=== PATIENT | male | born 1955 | race Caucasian/White ===

== ENCOUNTER 2023-08-02 12:13 | Inpatient (IN) | payer MEDICARE, BC ==
--- NOTE | 2023-08-02 12:38 | ED ---
General Adult HPI - General Source: patient, RN notes reviewed Mode of arrival: ambulatory Limitations: no limitations <Michael Howard - Last Filed: 08/02/23 12:36> - General Source: patient, RN notes reviewed Mode of arrival: ambulatory Limitations: no limitations <Jenaro Moralez - Last Filed: 08/02/23 16:58> - General Chief complaint: Extremity Injury, Lower Stated complaint: R Foot Discolored-Blue Time Seen by Provider: 08/02/23 12:36 - History of Present Illness Initial comments: -year-old male presents emergency department chief complaint of right foot pain, discoloration. He states that he notices with walking short distances he gets extreme foot pain and discoloration. He states it is improved at this time because has been sitting he notices with walking the symptoms worse he is a smoker denies any prior clots or known vascular issues (Michael Howard) Patient is a pleasant 67-year-old male presenting to the emergency Department with right leg pain. Onset was a couple days ago. Patient has symptoms with standing up or walking, resolved with lying down. Patient has noticed the end of his foot turning a little bit blue, more so medially. There is discomfort that radiates up the leg. No history of similar symptoms previously. Patient does have history of sciatica however that radiated the other way and started more in the buttocks and hip. Patient did have surgery for that years ago. Patient is a smoker. Patient does want to quit. Patient is not on anticoagulation. (Jenaro Moralez) - Related Data Allergies Allergy/AdvReac Type Severity Reaction Status Date / Time No Known Allergies Allergy Verified 08/02/23 12:19 Review of Systems ROS Other: All systems not noted in ROS Statement are negative. <Michael Howard - Last Filed: 08/02/23 12:36> ROS Other: All systems not noted in ROS Statement are negative. Constitutional: Denies: fever Eyes: Denies: eye pain ENT: Denies: ear pain Respiratory: Denies: cough, dyspnea Cardiovascular: Denies: chest pain Gastrointestinal: Denies: abdominal pain Skin: Reports: as per HPI <Jenaro Moralez - Last Filed: 08/02/23 16:58> ROS Statement: Those systems with pertinent positive or pertinent negative responses have been documented in the HPI. Past Medical History Past Medical History: No Reported History History of Any Multi-Drug Resistant Organisms: None Reported Additional Past Surgical History / Comment(s): Back Past Psychological History: No Psychological Hx Reported Smoking Status: Current every day smoker Past Alcohol Use History: None Reported Past Drug Use History: Marijuana <Michael Howard - Last Filed: 08/02/23 12:36> General Exam Limitations: no limitations <Michael Howard - Last Filed: 08/02/23 12:36> Limitations: no limitations General appearance: alert Head exam: Present: normocephalic Eye exam: Present: normal appearance Neck exam: Present: normal inspection Respiratory exam: Present: normal lung sounds bilaterally Cardiovascular Exam: Present: regular rate, normal rhythm Expanded Peripheral pulses: 1+: Posterior Tibialis (R), Dorsalis Pedis (R), 2+: Femoral (R), Femoral (L), Posterior Tibialis (L), Dorsalis Pedis (L) GI/Abdominal exam: Present: soft. Absent: tenderness, pulsatile mass Extremities exam: Present: other (Right first through third toe with minimal fullness and minimal light blue discoloration.) Neurological exam: Present: alert Psychiatric exam: Present: normal affect, normal mood Skin exam: Present: other (Minimal blue discoloration right first through third toes) <Jenaro Moralez - Last Filed: 08/02/23 16:58> - General Exam Comments Initial Comments: Visual Physical Exam Vital signs reviewed General: Well-appearing, nontoxic, no acute distress. Head: Normocephalic, atraumatic Eyes: PERRLA, EOMI ENT: Airway patent Chest: Nonlabored breathing Skin: No visual rash, normal skin tone Neuro: Alert and oriented 3 Musculoskeletal: No gross abnormalities (Michael Howard) Course Vital Signs 08/02/23 08/02/23 12:16 16:29 Temperature 98 F Pulse Rate 104 H 82 Respiratory 20 18 Rate Blood Pressure 210/111 207/82 O2 Sat by Pulse 100 100 Oximetry EKG Findings - EKG Results: EKG: interpreted by ERMOctaviano, sinus rhythm, normal axis, normal QRS, normal ST/T <Jenaro Moralez Last Filed: 08/02/23 16:58> Medical Decision Making <Michael Howard - Last Filed: 08/02/23 12:36> - Lab Data Result diagrams: 08/02/23 12:36 08/02/23 12:36 <Jenaro Moralez - Last Filed: 08/02/23 16:58> - Medical Decision Making I completed the quick note portion of this chart signed Michael Howard PA-C (Michael Howard) Was pt. sent in by a medical professional or institution (, PA, [employer], urgent care, hospital, or jail...) When possible be specific @ -No Did you speak to anyone other than the patient for history (EMS, parent, family, police, friend...)? What history was obtained from this source @ -No Did you review nursing and triage notes (agree or disagree)? Why? @ -I reviewed and agree with nursing and triage notes Were old charts reviewed (outside hosp., previous admission, EMS record, old EKG, old radiological studies, urgent care reports/EKG's, jail records)? Report findings @ -No old charts were reviewed Differential Diagnosis (chest pain, altered mental status, abdominal pain women, abdominal pain men, vaginal bleeding, weakness, fever, dyspnea, syncope, headache, dizziness, GI bleed, back pain, seizure, CVA, palpatations, mental health, musculoskeletal)? @ -Differential Musculoskeletal Muscular strain, contusion, ligament sprain, fracture, arthritis, septic arthritis, bursitis, cellulitis, muscle spasm, nerve compression, DVT, arterial occlusion, herpes zoster, electrolyte abnormality, tumor.... This is not meant to be in all inclusive list EKG interpreted by me (3pts min.). @ -As above X-rays interpreted by me (1pt min.). @ -None done CT interpreted by me (1pt min.). @ -CT angios right leg does show some occlusive disease U/S interpreted by me (1pt. min.). @ -None done What testing was considered but not performed or refused? (CT, X-rays, U/S, labs)? Why? @ -None What meds were considered but not given or refused? Why? @ -None Did you discuss the management of the patient with other professionals (professionals i.e. , CHRISTINE, [employer], lab, RT, psych nurse, social services designee, filter cleaner, teacher, media liaison officer, porter sample case)? Give summary @ -Case was discussed with vascular Dr. Barrera who will come evaluate patient and does request heparin and blood pressure control Was smoking cessation discussed for >3mins.? @ -No Was critical care preformed (if so, how long)? @ -33 minutes of critical care time Were there social determinants of health that impacted care today? How? (Homelessness, low income, unemployed, alcoholism, drug addiction, transportation, low edu. Level, literacy, decrease access to med. care, detention, rehab)? @ -No Was there de-escalation of care discussed even if they declined (Discuss DNR or withdrawal of care, Hospice)? DNR status @ -No What co-morbidities impacted this encounter? (DM, HTN, Smoking, COPD, CAD, Cancer, CVA, ARF, Chemo, Hep., AIDS, mental health diagnosis, sleep apnea, morbid obesity)? @ -None Was patient admitted / discharged? Hospital course, mention meds given and route, prescriptions, significant lab abnormalities, going to OR and other pertinent info. @ -Patient reevaluated and updated. Patient will be admitted. Admission orders written. Heparin started. Undiagnosed new problem with uncertain prognosis? @ -No Drug Therapy requiring intensive monitoring for toxicity (Heparin, Nitro, I nsulin, Cardizem)? @ -Patient will need monitoring for heparin drip. Were any procedures done? @ -No Diagnosis/symptom? @ -Arterial occlusion Acute, or Chronic, or Acute on Chronic? @ -Acute Uncomplicated (without systemic symptoms) or Complicated (systemic symptoms)? @ -default Side effects of treatment? @ -No Exacerbation, Progression, or Severe Exacerbation? @ -No Poses a threat to life or bodily function? How? (Chest pain, USA, VT, pneumonia, PE, COPD, DKA, ARF, appy, cholecystitis, CVA, Diverticulitis, Homicidal, Suicidal, threat to staff... and all critical care pts) @ -No Case was also discussed with Dr. 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 Pankaj discussed with Practitioner Melani for admission covering with Dr. salazar. They will admit. (Jenaro Moralez) - Lab Data Lab Results 08/02/23 08/02/23 08/02/23 Range/Units 12:36 12:36 12:36 WBC 8.7 (3.8-10.6) k/uL RBC 4.61 (4.30-5.90) m/uL Hgb 14.8 (13.0-17.5) gm/dL Hct 44.6 (39.0-53.0) % MCV 96.9 (80.0-100.0) fL MCH 32.2 (25.0-35.0) pg MCHC 33.2 (31.0-37.0) g/dL RDW 12.9 (11.5-15.5) % Plt Count 374 (150-450) k/uL MPV 8.0 Neutrophils % 75 % Lymphocytes % 18 % Monocytes % 4 % Eosinophils % 2 % Basophils % 0 % Neutrophils # 6.5 (1.3-7.7) k/uL Lymphocytes # 1.6 (1.0-4.8) k/uL Monocytes # 0.3 (0-1.0) k/uL Eosinophils # 0.2 (0-0.7) k/uL Basophils # 0.0 (0-0.2) k/uL PT 9.5 L (10.0-12.5) sec INR 0.8 (<1.2) APTT 22.4 (22.0-30.0) sec Sodium 141 (137-145) mmol/L Potassium 5.6 H (3.5-5.1) mmol/L Chloride 107 (98-107) mmol/L Carbon Dioxide 27 (22-30) mmol/L Anion Gap 7 mmol/L BUN 8 L (9-20) mg/dL Creatinine 1.04 (0.66-1.25) mg/dL Est GFR (CKD-EPI)AfAm 87 (>60 ml/min/1.73 sqM) Est GFR (CKD-EPI)NonAf 75 (>60 ml/min/1.73 sqM) Glucose 98 (74-99) mg/dL Plasma Lactic Acid Noah (0.7-2.0) mmol/L Calcium 9.9 (8.4-10.2) mg/dL Total Bilirubin 0.5 (0.2-1.3) mg/dL AST 19 (17-59) U/L ALT 13 (4-49) U/L Alkaline Phosphatase 125 (38-126) U/L Total Protein 6.9 (6.3-8.2) g/dL Albumin 4.2 (3.5-5.0) g/dL 01/30/24 Range/Units 12:36 WBC (3.8-10.6) k/uL RBC (4.30-5.90) m/uL Hgb (13.0-17.5) gm/dL Hct (39.0-53.0) % MCV (80.0-100.0) fL MCH (25.0-35.0) pg MCHC (31.0-37.0) g/dL RDW (11.5-15.5) % Plt Count (150-450) k/uL MPV Neutrophils % % Lymphocytes % % Monocytes % % Eosinophils % % Basophils % % Neutrophils # (1.3-7.7) k/uL Lymphocytes # (1.0-4.8) k/uL Monocytes # (0-1.0) k/uL Eosinophils # (0-0.7) k/uL Basophils # (0-0.2) k/uL PT (10.0-12.5) sec INR (<1.2) APTT (22.0-30.0) sec Sodium (137-145) mmol/L Potassium (3.5-5.1) mmol/L Chloride (98-107) mmol/L Carbon Dioxide (22-30) mmol/L Anion Gap mmol/L BUN (9-20) mg/dL Creatinine (0.66-1.25) mg/dL Est GFR (CKD-EPI)AfAm (>60 ml/min/1.73 sqM) Est GFR (CKD-EPI)NonAf (>60 ml/min/1.73 sqM) Glucose (74-99) mg/dL Plasma Lactic Acid Noah 1.2 (0.7-2.0) mmol/L Calcium (8.4-10.2) mg/dL Total Bilirubin (0.2-1.3) mg/dL AST (17-59) U/L ALT (4-49) U/L Alkaline Phosphatase (38-126) U/L Total Protein (6.3-8.2) g/dL Albumin (3.5-5.0) g/dL Disposition <Michael Howard - Last Filed: 08/02/23 12:36> Is patient prescribed a controlled substance at d/c from ED?: No Time of Disposition: 16:45 <Moralez,Jenaro - Last Filed: 08/02/23 16:58> Clinical Impression: Arterial occlusion Disposition: ADMITTED IP TO THIS HOSP Referrals: Elie Llanes MD [Primary Care Provider] - 1-2 days
[2023-08-02 12:56] LABS: Basophils % (A) 0 %; Eosinophils # (A) 0.2 k/uL (0-0.7); Eosinophils % (A) 2 %; HCT 44.6 % (39.0-53.0); HGB 14.8 gm/dL (13.0-17.5); Lymphocytes # (A) 1.6 k/uL (1.0-4.8); Lymphocytes % (A) 18 %; MCH 32.2 pg (25.0-35.0); MCHC 33.2 g/dL (31.0-37.0); MCV 96.9 fL (80.0-100.0); Monocytes # (A) 0.3 k/uL (0-1.0); Monocytes % (A) 4 %; Neutrophils # (A) 6.5 k/uL (1.3-7.7); Neutrophils % (A) 75 %; Platelet Count 374 k/uL (150-450); RBC 4.61 m/uL (4.30-5.90); RDW 12.9 % (11.5-15.5); WBC 8.7 k/uL (3.8-10.6)
[2023-08-02 13:08] LABS: ALT 13 U/L (4-49); AST 19 U/L (17-59); African American GFR (CKD) 87 (>60 ml/min/1.73 sqM); Albumin 4.2 g/dL (3.5-5.0); Alkaline Phosphatase 125 U/L (38-126); Anion Gap 7 mmol/L; Blood Urea Nitrogen 8 mg/dL (9-20); Calcium 9.9 mg/dL (8.4-10.2); Carbon Dioxide 27 mmol/L (22-30); Chloride 107 mmol/L (98-107); Glucose 98 mg/dL (74-99); Non-African American GFR(CKD) 75 (>60 ml/min/1.73 sqM); Potassium 5.6 mmol/L (3.5-5.1); Sodium 141 mmol/L (137-145); Total Bilirubin 0.5 mg/dL (0.2-1.3); Total Protein 6.9 g/dL (6.3-8.2)
[2023-08-02 13:30] LABS: INR 0.8 (<1.2); Partial Thromboplastin Time 22.4 sec (22.0-30.0); Prothrombin Time 9.5 sec (10.0-12.5)
[2023-08-02] MEDS ORDERED: RX INFO: IV CONTRAST WAS GIVEN 1 EACH MISC MISCELLANE PRN (14:57)
--- NOTE | 2023-08-02 16:09 | CT ---
EXAMINATION TYPE: CT angio lower extremity RT DATE OF EXAM: 08/02/2023 COMPARISON: None HISTORY: Foot discoloration, decreased pulses CT DLP: 1427.6 mGycm Automated exposure control for dose reduction was used. Contrast: 100 mL Isovue-370 Technique: Axial images 2 mm thick sections. Reconstructed images were performed on a separate comput er by the technologist are reviewed. FINDINGS: Right lower extremity arterial system: The external iliac artery is patent. Common femoral artery is patent. Vascular calcifications in the distal common femoral artery. Profunda femoris is patent. The superficial femoral artery is occluded at its origin. Profunda femoris vessels are identified to the mid thigh region. Note is made of vascular calcification within the superficial femoral artery. There appears to be reconstitution of the popliteal artery within its proximal portion. Trifurcation vessels are patent. Vascular calcifications within these vessels. Peroneal artery is very narrowed. A nterior and posterior tibial arteries to the mid calf region are patent. Posterior tibial artery appe ars occluded in its distal portion. Anterior tibial artery is patent to the level of the ankle. Peron eal artery extends to nearly the ankle. IMPRESSION: 1. OCCLUSION OF THE LEFT RIGHT SUPERFICIAL FEMORAL ARTERY AT ITS ORIGIN. 2. RECONSTITUTION OF THE POPLITEAL ARTERY. SMALL CALIBER VESSELS EXTENDING TO THE TRIFURCATION ARTERI ES. 3. ANTERIOR TIBIAL ARTERY APPEARS TO BE PATENT AT THE LEVEL OF THE ANKLE. POSTERIOR TIBIAL AND PERONE AL ARTERIES ARE NARROWED AND MAY OCCLUDE ABOVE THE LEVEL OF THE ANKLE.
[2023-08-02] MEDS ORDERED: HEPARIN SODIUM 1,000 UN/ML (10ML VL) IV PRN (16:39)
[2023-08-02] MEDS ORDERED: NALOXONE 0.4 MG/ML 1 ML VIAL IV PRN (16:45)
[2023-08-02] MEDS: hydrALAZINE HCL 20 MG/ML 1 ML VIAL IVP STA (17:13)
[2023-08-02] MEDS: HEPARIN SOD,PORK IN 0.45% NACL 25,000 UNIT in 0.45% NACL 1 250ML.BAG IV SCH (17:16)
[2023-08-02] MEDS: HEPARIN SODIUM 1,000 UN/ML (10ML VL) IV ONE (17:16)
[2023-08-02] MEDS: PANTOPRAZOLE 40 MG/10 ML VIAL IV SCH (17:35)
[2023-08-02] MEDS: SODIUM CHLORIDE 0.9% 1,000 ML IV SCH (17:35)
[2023-08-02 17:44] LABS: INR 0.9 (<1.2); Prothrombin Time 9.7 sec (10.0-12.5)
--- NOTE | 2023-08-02 21:36 | P.GSCN ---
History of Present Illness Consult date: 08/02/23 Reason for Consult: lower extremity ischemia History of present illness: 67 year old gentleman with history of back surgery, chronic parasthesia, numbness in his feet presented to the ER for worsening discomfort and discoloration of the feet after walking. He states having discomfort in his feet with paleness and sometimes bluish discoloration after walking significant distance or at a brisk pace. He denies any rest pain, fevers, chills, chest pain or shortness of breath. Review of Systems All systems: negative (what is mentioned in the PMH or HPI) Past Medical History Past Medical History: No Reported History History of Any Multi-Drug Resistant Organisms: None Reported Additional Past Surgical History / Comment(s): Back Past Psychological History: No Psychological Hx Reported Smoking Status: Current every day smoker Past Alcohol Use History: None Reported Past Drug Use History: Marijuana Medications and Allergies Home Medications Medication Instructions Recorded Confirmed Type No Known Home Medications 08/02/23 08/02/23 History Allergies Allergy/AdvReac Type Severity Reaction Status Date / Time No Known Allergies Allergy Verified 08/02/23 17:33 Surgical - Exam Vital Signs Temp Pulse Resp BP Pulse Ox 98 F 104 H 20 210/111 100 08/02/23 12:16 08/02/23 12:16 08/02/23 12:16 08/02/23 12:16 08/02/23 12:16 - General well developed, well nourished, no distress - Eyes PERRL, normal ocular movement - ENT normal pinna, normal nares - Neck no masses - Respiratory normal expansion, normal respiratory effort - Cardiovascular Rhythm: regular - Abdomen Abdomen: soft, non tender - Integumentary no rash, no growths - Neurologic normal coordination - Musculoskeletal normal gait, normal posture - Psychiatric oriented to time, oriented to person, oriented to place, speech is normal Monophasic DP/PT on the right foot is pale, poor capillary refill Results - Labs 08/02/23 12:36 08/02/23 12:36 Abnormal Lab Results - Last 24 Hours (Table) 08/02/23 08/02/23 08/02/23 Range/Units 12:36 12:36 16:56 PT 9.5 L 9.7 L (10.0-12.5) sec Potassium 5.6 H (3.5-5.1) mmol/L BUN 8 L (9-20) mg/dL Diabetes panel 08/02/23 Range/Units 12:36 Sodium 141 (137-145) mmol/L Potassium 5.6 H (3.5-5.1) mmol/L Chloride 107 (98-107) mmol/L Carbon Dioxide 27 (22-30) mmol/L BUN 8 L (9-20) mg/dL Creatinine 1.04 (0.66-1.25) mg/dL Glucose 98 (74-99) mg/dL Calcium 9.9 (8.4-10.2) mg/dL AST 19 (17-59) U/L ALT 13 (4-49) U/L Alkaline Phosphatase 125 (38-126) U/L Total Protein 6.9 (6.3-8.2) g/dL Albumin 4.2 (3.5-5.0) g/dL Calcium panel 08/02/23 Range/Units 12:36 Calcium 9.9 (8.4-10.2) mg/dL Albumin 4.2 (3.5-5.0) g/dL Pituitary panel 08/02/23 Range/Units 12:36 Sodium 141 (137-145) mmol/L Potassium 5.6 H (3.5-5.1) mmol/L Chloride 107 (98-107) mmol/L Carbon Dioxide 27 (22-30) mmol/L BUN 8 L (9-20) mg/dL Creatinine 1.04 (0.66-1.25) mg/dL Glucose 98 (74-99) mg/dL Calcium 9.9 (8.4-10.2) mg/dL Adrenal panel 08/02/23 Range/Units 12:36 Sodium 141 (137-145) mmol/L Potassium 5.6 H (3.5-5.1) mmol/L Chloride 107 (98-107) mmol/L Carbon Dioxide 27 (22-30) mmol/L BUN 8 L (9-20) mg/dL Creatinine 1.04 (0.66-1.25) mg/dL Glucose 98 (74-99) mg/dL Calcium 9.9 (8.4-10.2) mg/dL Total Bilirubin 0.5 (0.2-1.3) mg/dL AST 19 (17-59) U/L ALT 13 (4-49) U/L Alkaline Phosphatase 125 (38-126) U/L Total Protein 6.9 (6.3-8.2) g/dL Albumin 4.2 (3.5-5.0) g/dL - Imaging Additional studies: CTA of the right foot demonstrates occlusion of the right SFA with recon above knee popliteal artery and distal arterial tibial occlusive disease Assessment and Plan Assessment: Acute on Chronic right lower extremity ischemia Right superficial femoral artery occlusion HTN Plan: Reviewed CTA which demonstrates occlusion of the SFA. Agree with heparin drip for now and admission for further monitoring. Discussed need for angiogram with the patient either as outpatient or within the next couple of days. Recommend aspirin, plavix and statin. Thank you for the consultation.
[2023-08-03 10:01] LABS: Basophils % (A) 0 %; Eosinophils # (A) 0.1 k/uL (0-0.7); Eosinophils % (A) 1 %; HCT 43.8 % (39.0-53.0); HGB 14.5 gm/dL (13.0-17.5); Lymphocytes # (A) 2.1 k/uL (1.0-4.8); Lymphocytes % (A) 22 %; MCH 32.5 pg (25.0-35.0); MCHC 33.1 g/dL (31.0-37.0); MCV 98.2 fL (80.0-100.0); Mean Platelet Volume 8.8; Monocytes # (A) 0.4 k/uL (0-1.0); Monocytes % (A) 4 %; Neutrophils # (A) 6.8 k/uL (1.3-7.7); Neutrophils % (A) 71 %; Platelet Count 403 k/uL (150-450); RBC 4.46 m/uL (4.30-5.90); RDW 13.3 % (11.5-15.5); WBC 9.7 k/uL (3.8-10.6)
--- NOTE | 2023-08-03 12:42 | P.PN ---
Subjective Progress Note Date: 08/03/23 Principal diagnosis: Right femoral artery occlusion Patient is seen and examined lying in bed in the emergency department. He has IV heparin infusion running. States pain is improved in the right lower extremity. He states he has only been up and ambulated to the bathroom which is only 1 door down which she states has been nonpainful. Right lower extremity warm to the touch. He denies any other acute changes through the night. Objective - Vital Signs Vital signs: Vital Signs Temp 98 F 08/02/23 12:16 Pulse 66 08/03/23 09:25 Resp 18 08/03/23 09:25 BP 161/80 08/03/23 09:25 Pulse Ox 97 08/03/23 09:25 FiO2 Intake & Output 08/02/23 08/03/23 08/03/23 18:59 06:59 18:59 Intake Total 81.238 Balance 81.238 Weight 68.039 kg Intake: Intake, IV Titration 81.238 Amount Heparin Sod,Pork in 0.45% 81.238 NaCl 25,000 unit In 0.45 % NaCl 1 250ml.bag @ 18 UNITS/KG/HR 12.247 mls/hr IV .[id number] [facility] Rx#: [id number] - Exam General appearance: The patient is alert, oriented, appears in no acute distress. HET: Head is normocephalic and atraumatic. Pupils are equal and reactive. Neck: Supple. Heart: Regular. Lungs: Equal expansion, normal respiratory effort. Abdomen: Soft, nontender, nondistended. Extremities: Normal skin color and turgor. No edema bilaterally palpable bilateral femoral pulses. Palpable left DP pulse. Right dorsalis pulse not present, good capillary refill. Sensorimotor intact. Neurological: No focal deficits. Strength and sensation are grossly intact. - Labs CBC & Chem 7: 08/03/23 09:22 08/02/23 12:36 Labs: Abnormal Lab Results - Last 24 Hours (Table) 08/02/23 08/02/23 08/02/23 Range/Units 12:36 12:36 16:56 PT 9.5 L 9.7 L (10.0-12.5) sec APTT (22.0-30.0) sec Potassium 5.6 H (3.5-5.1) mmol/L BUN 8 L (9-20) mg/dL 08/02/23 08/03/23 Range/Units 23:13 08:00 PT (10.0-12.5) sec APTT 63.1 H 84.1 H (22.0-30.0) sec Potassium (3.5-5.1) mmol/L BUN (9-20) mg/dL Assessment and Plan Assessment: 1. Acute on chronic right lower extremity ischemia 2. Right superficial femoral artery occlusion 3. Hypertension 4. Nicotine dependence Plan: 1. Continue IV heparin infusion as ordered 2. Patient may have heart healthy diet 3. Recommend smoking cessation 4. Will start patient on aspirin and statin, Plavix if no intervention during this hospitalization 5. Plan will be to move forward with right lower extremity angiogram and possible intervention tentatively scheduled for Tuesday Thank you for this consultation, we will continue to follow. The impression and plan of care has been dictated as directed. Dr. Barrera I performed a history and examination of this patient, discussed the same with the dictator. I agree with the dictator's note ,documented as a scribe. Any additional findings or plans will be noted.
[2023-08-03] MEDS: ASPIRIN 81 MG PO SCH (13:42)
[2023-08-03] MEDS: hydrALAZINE HCL 20 MG/ML 1 ML VIAL IVP PRN (21:38)
[2023-08-03] MEDS: ATORVASTATIN 40 MG TAB PO SCH (21:38)
[2023-08-04] MEDS: PANTOPRAZOLE 40 MG TABLET PO SCH (06:07)
--- NOTE | 2023-08-04 09:16 | US ---
EXAMINATION TYPE: US arterial LE multi level DATE OF EXAM: 08/04/2023 8:22 AM CLINICAL INDICATION: Male, 67 years old with history of right femoral occlusion; Abnormal CT right le g History of: Smoker: Current Smoker Hypertension: Yes Diabetic: No Hyperlipidemia: No TIA/CVA: No Previous Vascular Surgery: No CAD: No NV: No Vascular Ulcers: No Claudication: Yes, right leg Gangrene: No Doppler Waveforms: Right: Monophasic Left: Biphasic Right Brachial Pressure: 176 Left Brachial Pressure: Deferred due to IV site Ankle-Brachial Indices: Right: 0.5 Left: 1.0 Toe Brachial Indices: Right: Waveforms not visualized to obtain TBI Left: 0.8 IMPRESSION: 1. Toe brachial index of the left suggestive of moderate disease. 2. Ankle-brachial index on the left within normal limits. 3. Ankle-brachial index on the right with severe disease.
--- NOTE | 2023-08-04 12:47 | P.GSCN ---
History of Present Illness Consult date: 08/04/23 History of present illness: Chief 7-year-old gentleman in the hospital with right foot vascular ischemia. During evaluation he is noted to have a large left scrotal mass and we are asked see the patient. Historically the patient has seen a urologist years ago for this. It is probably a hydrocele based on the patient's description. It is gotten slowly larger. It bothers him occasionally. There is no trauma erythema or difficulty with urination. Review of Systems All systems: negative - Constitutional Denies fever, Denies weight loss - EENT Eyes: denies blurred vision Ears, nose, mouth and throat: Denies dysphagia - Cardiovascular Denies chest pain, Denies shortness of breath - Respiratory Denies cough, Denies 7 - Gastrointestinal Reports as per HPI - Genitourinary Denies dysuria, Denies hematuria - Integumentary Denies rash, Denies unusual bruising - Neurological Denies headaches, Denies syncope - Hematologic/Lymphatic Denies easy bleeding, Denies easy bruising Past Medical History Past Medical History: No Reported History History of Any Multi-Drug Resistant Organisms: None Reported Past Surgical History: Orthopedic Surgery Additional Past Surgical History / Comment(s): Back surgery 2000, tooth abscess surgery 2014 Past Anesthesia/Blood Transfusion Reactions: No Reported Reaction Past Psychological History: No Psychological Hx Reported Smoking Status: Current every day smoker Past Alcohol Use History: None Reported Past Drug Use History: Marijuana - Past Family History Father Family Medical History: No Reported History Additional Family Medical History / Comment(s): at age 90 Mother Family Medical History: Diabetes Mellitus Additional Family Medical History / Comment(s): at age 85 Medications and Allergies Home Medications Medication Instructions Recorded Confirmed Type No Known Home Medications 08/02/23 08/02/23 History Allergies Allergy/AdvReac Type Severity Reaction Status Date / Time No Known Allergies Allergy Verified 08/02/23 17:33 Surgical - Exam Vital Signs Temp Pulse Resp BP Pulse Ox 98 F 104 H 20 210/111 100 08/02/23 12:16 08/02/23 12:16 08/02/23 12:16 08/02/23 12:16 08/02/23 12:16 - General well developed, well nourished, no distress - Eyes normal ocular movement, no icteric - ENT no hearing loss, no congestion - Neck no masses, trachea midline - Respiratory normal respiratory effort, clear to auscultation - Abdomen Abdomen: soft, non tender, no guarding, no rigid, no rebound - Genitourinary Large left fluid election superior and anterior to the testicle on the left side. It is consistent with a hydrocele or spermatocele. - Integumentary no rash, no abnormal pigmentation - Neurologic no disoriented, no combative - Psychiatric oriented to time, oriented to person, oriented to place, speech is normal, memory intact Results - Labs 08/03/23 09:22 08/02/23 12:36 Abnormal Lab Results - Last 24 Hours (Table) 08/03/23 08/04/23 Range/Units 13:17 08:34 APTT 79.7 H 80.2 H (22.0-30.0) sec Assessment and Plan Assessment: Impression: Left hydrocele/spermatocele, enlarging Recommendations: A she has had this for many years. It is getting bigger and starting to bother him. Surgical repair as the only permanent correction for this problem. Since it isn't bothering him too bad at this point time this can be dealt with electively in the future. He should proceed with his vascular intervention prior to me doing any urologic intervention. This is been discussed with the patient and his brother they'll contact me if and when they wished to have something done.
[2023-08-04] MEDS: NICOTINE 21MG/24HR PATCH TRANSDERM SCH (12:56)
--- NOTE | 2023-08-04 14:30 | P.HPIM ---
History of Present Illness H&P Date: 08/03/23 This is a very pleasant 67-year-old male who presented to the emergency department with right foot pain and significant discoloration. Patient reports he noticed his right foot was black and blue and worsens when applying pressure and walking on although slightly subsides when sitting up to alleviate the symptoms. Patient reports this has been ongoing for a few days and has been progressively becoming more prominent and painful. Patient reports he follows with Dr. Llanes in the outpatient setting although has not been seen in the office in over at least 3 years. Patient smokes and reports at least 1 pack a day and has the desire to quit but has not done so. Patient with a past medical history of being a smoker with no other significant history noted. Patient underwent lower extremity CTA showing occlusion of the left right superficial femoral artery with reconstitution of the popliteal artery and small caliber vessels extending to the trifurcation arteries with anterior tibial artery that appears to be patent at the level of the ankle and the posterior tibial and peroneal arteries are narrowed and may occlude above the level of the ankle and vascular surgery was consulted and patient was placed on IV heparin and will be undergoing an angiogram with possible intervention tentatively scheduled for Tuesday. REVIEW OF SYSTEMS: CONSTITUTIONAL: No fever, no malaise, no fatigue. HEENT: No recent visual problems or hearing problems. Denied any sore throat. CARDIOVASCULAR: No chest pain, orthopnea, PND, no palpitations, no syncope. PULMONARY: No shortness of breath, no cough, no hemoptysis. GASTROINTESTINAL: No diarrhea, no nausea, no vomiting, no abdominal pain. NEUROLOGICAL: No headaches, no weakness, no numbness. HEMATOLOGICAL: Denies any bleeding or petechiae. GENITOURINARY: Denies any burning micturition, frequency, or urgency. MUSCULOSKELETAL/RHEUMATOLOGICAL: Denies any joint pain, swelling, or any muscle pain. Reports of some discoloration on the right lower extremity and foot with pain when walking frequently ENDOCRINE: Denies any polyuria or polydipsia. The rest of the 14-point review of systems is negative. PHYSICAL EXAMINATION: GENERAL: The patient is alert and oriented x3, not in any acute distress. Well developed, thin built, elderly appearing HEENT: Pupils are round and equally reacting to light. EOMI. No scleral icterus. No conjunctival pallor. Normocephalic, atraumatic. No pharyngeal erythema. No thyromegaly. CARDIOVASCULAR: S1 and S2 present. No murmurs, rubs, or gallops. PULMONARY: Chest is clear to auscultation, no wheezing or crackles. ABDOMEN: Soft, nontender, nondistended, normoactive bowel sounds. No palpable o rganomegaly. MUSCULOSKELETAL: No joint swelling or deformity. EXTREMITIES: No cyanosis, clubbing, or pedal edema. NEUROLOGICAL: Gross neurological examination did not reveal any focal deficits. SKIN: No rashes. 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 Patient will be n.p.o. at midnight and will also evaluate for a lipid panel in the a.m. Recommend repeat labs of CBC, CMP, magnesium today Patient is continued on IV heparin and will discuss further with vascular regarding discharge planning and antiplatelet therapy Patient with noncompliance and has not followed up with a primary care provider in years and normally follows with Dr. Elie Llanes in the outpatient setting and will need to reestablish Discussed and encouraged complete tobacco cessation and have provided nicotine patches Patient was continued on high-dose IV hydration and will discontinue as this could possibly be contributing to elevated blood pressures as well. Continue with hydralazine as needed for now and will await vascular surgery report in a.m. The impression and plan of care has been dictated by Juana Andrea, Nurse Practitioner as directed. Dr. Shell MD I have performed a history and examination and MDM of this patient, discussed the same with the dictator, and agree with the dictator's assessment and plan as written ,documented as a scribe. Based on total visit time, I have performed more than 50% of the visit. Past Medical History Past Medical History: No Reported History History of Any Multi-Drug Resistant Organisms: None Reported Past Surgical History: Orthopedic Surgery Additional Past Surgical History / Comment(s): Back surgery 2000, tooth abscess surgery 2014 Past Anesthesia/Blood Transfusion Reactions: No Reported Reaction Past Psychological History: No Psychological Hx Reported Smoking Status: Current every day smoker Past Alcohol Use History: None Reported Past Drug Use History: Marijuana - Past Family History Father Family Medical History: No Reported History Additional Family Medical History / Comment(s): at age 90 Mother Family Medical History: Diabetes Mellitus Additional Family Medical History / Comment(s): at age 85 Medications and Allergies Home Medications Medication Instructions Recorded Confirmed Type No Known Home Medications 08/02/23 08/02/23 History Allergies Allergy/AdvReac Type Severity Reaction Status Date / Time No Known Allergies Allergy Verified 08/02/23 17:33 Physical Exam Vitals: Vital Signs Temp Pulse Pulse Resp BP BP Pulse Ox 08/04/23 08:00 97.9 F 68 16 147/73 97 08/04/23 04:00 97.9 F 57 L 17 163/82 97 08/04/23 02:00 68 17 08/04/23 00:00 98.0 F 68 17 154/90 98 08/03/23 20:00 98.2 F 67 17 188/89 100 08/03/23 18:31 98.0 F 68 16 172/83 98 08/03/23 16:50 65 18 166/82 99 08/03/23 13:06 64 18 153/78 99 Intake and Output 08/03/23 08/04/23 08/04/23 22:59 06:59 14:59 Intake Total 118 Output Total 360 Balance -360 118 Intake: Oral 118 Output: Urine 360 Other: Voiding Method Toilet Toilet Weight 68.039 kg 72.4 kg Results CBC & Chem 7: 08/03/23 09:22 08/02/23 12:36 Labs: Abnormal Lab Results - Last 24 Hours (Table) 08/03/23 08/04/23 Range/Units 13:17 08:34 APTT 79.7 H 80.2 H (22.0-30.0) sec Thrombosis Risk Factor Assmnt - DVT/VTE Prophylaxis DVT/VTE Prophylaxis: Pharmacologic Prophylaxis ordered - Choose All That Apply Any of the Below Risk Factors Present?: No Other Risk Factors: No Thrombosis Risk Factor Assessment Level: Very Low Risk Assessment and Plan Time with Patient: Greater than 30
[2023-08-04 14:40] LABS: Basophils % (A) 1 %; Eosinophils # (A) 0.2 k/uL (0-0.7); Eosinophils % (A) 2 %; HCT 40.6 % (39.0-53.0); HGB 13.6 gm/dL (13.0-17.5); Lymphocytes # (A) 1.8 k/uL (1.0-4.8); Lymphocytes % (A) 23 %; MCH 32.3 pg (25.0-35.0); MCHC 33.4 g/dL (31.0-37.0); MCV 96.7 fL (80.0-100.0); Mean Platelet Volume 8.1; Monocytes # (A) 0.4 k/uL (0-1.0); Monocytes % (A) 5 %; Neutrophils # (A) 5.3 k/uL (1.3-7.7); Neutrophils % (A) 68 %; Platelet Count 310 k/uL (150-450); RDW 12.8 % (11.5-15.5); WBC 7.8 k/uL (3.8-10.6)
[2023-08-04 15:13] LABS: ALT 13 U/L (4-49); AST 21 U/L (17-59); African American GFR (CKD) >90 (>60 ml/min/1.73 sqM); Albumin 3.4 g/dL (3.5-5.0); Alkaline Phosphatase 105 U/L (38-126); Anion Gap 8 mmol/L; Blood Urea Nitrogen 15 mg/dL (9-20); Calcium 8.7 mg/dL (8.4-10.2); Carbon Dioxide 21 mmol/L (22-30); Chloride 109 mmol/L (98-107); Glucose 129 mg/dL (74-99); Magnesium 1.8 mg/dL (1.6-2.3); Non-African American GFR(CKD) 79 (>60 ml/min/1.73 sqM); Potassium 4.3 mmol/L (3.5-5.1); Sodium 138 mmol/L (137-145); Total Bilirubin 0.3 mg/dL (0.2-1.3); Total Protein 5.8 g/dL (6.3-8.2)
--- NOTE | 2023-08-04 16:35 | P.PN ---
Subjective Progress Note Date: 08/04/23 Principal diagnosis: Right femoral artery occlusion Patient is seen and examined sitting up in his bed. No acute changes through the night. He remains on IV heparin drip. Right lower extremity color improved, warm to the touch. Sensorimotor intact. Objective - Vital Signs Vital signs: Vital Signs Temp 97.9 F 08/04/23 08:00 Pulse 68 08/04/23 08:00 Resp 16 08/04/23 08:00 BP 147/73 08/04/23 08:00 Pulse Ox 97 08/04/23 08:00 FiO2 Intake & Output 08/03/23 08/04/23 08/04/23 18:59 06:59 18:59 Intake Total 168.762 Output Total 360 Balance 168.762 -360 Weight 68.039 kg 72.4 kg Intake: Intake, IV Titration 168.762 Amount Heparin Sod,Pork in 0.45% 168.762 NaCl 25,000 unit In 0.45 % NaCl 1 250ml.bag @ 18 UNITS/KG/HR 12.247 mls/hr IV .[id number] [facility] Rx#: [id number] Output: Urine 360 Other: Voiding Method Toilet - Exam General appearance: The patient is alert, oriented, appears in no acute distress. HET: Head is normocephalic and atraumatic. Pupils are equal and reactive. Neck: Supple. Heart: Regular. Lungs: Equal expansion, normal respiratory effort. Abdomen: Soft, nontender, nondistended. Extremities: Normal skin color and turgor. No edema bilaterally palpable bilateral femoral pulses. Palpable left DP pulse. Right dorsalis pulse not present, good capillary refill. Sensorimotor intact. Neurological: No focal deficits. Strength and sensation are grossly intact. - Labs CBC & Chem 7: 08/04/23 14:22 08/04/23 14:22 Labs: Abnormal Lab Results - Last 24 Hours (Table) 08/03/23 08/03/23 Range/Units 08:00 13:17 APTT 84.1 H 79.7 H (22.0-30.0) sec Assessment and Plan Assessment: 1. Acute on chronic right lower extremity ischemia 2. Right superficial femoral artery occlusion 3. Hypertension 4. Nicotine dependence Plan: 1. Continue IV heparin infusion as ordered 2. N.p.o. after midnight 3. Recommend smoking cessation 4. Will start patient on aspirin and statin, Plavix if no intervention during this hospitalization 5. Plan will be to move forward with right lower extremity angiogram and possible intervention tentatively scheduled for Tuesday Thank you for this consultation, we will continue to follow. The impression and plan of care has been dictated as directed. Dr. Mckeon I performed a history and examination of this patient, discussed the same with the dictator. I agree with the dictator's note ,documented as a scribe. Any additional findings or plans will be noted.
[2023-08-05] MEDS: LIDOCAINE 1% INJ 10MG/ML (20 ML MDV) SQ ONE (14:22)
[2023-08-05] MEDS: fentaNYL (PF) 50 MCG/ML 2 ML AMP IVP ONE (14:24)
[2023-08-05] MEDS: MIDAZOLAM 2 MG/2 ML VIAL IVP ONE (14:24)
[2023-08-05] MEDS ORDERED: ALTEPLASE 2 MG VIAL (CATHFLO) ONE (14:36)
--- NOTE | 2023-08-05 15:19 | IR ---
EXAMINATION TYPE: IR thrombolysis cath exchange Intraoperative/procedural fluoroscopic services were provided. Total fluoroscopy time is 6.6 min with a total of 114 submitted images to PACS. Please see the operative/procedural note for further details. DAP: [id number] uGym2
[2023-08-05] MEDS: ALTEPLASE 10 MG in SODIUM CHLORIDE 0.9% 90 ML IA ONE (15:29)
[2023-08-05] MEDS: IV FLUID CONTINUATION 1,000 ML IV ONE (15:30)
[2023-08-05] MEDS: IOPAMIDOL-370 100ML BTL INJ ONE (15:31)
[2023-08-05 15:51] LABS: Glucose,Whole Blood 78 mg/dL (70-110)
--- NOTE | 2023-08-05 16:12 | P.OP ---
Date of Procedure: 08/05/23 Preoperative Diagnosis: Total occlusion right superficial femoral artery with significant arterial insufficiency of the right lower extremity. Postoperative Diagnosis: Same. Procedure(s) Performed: 1: Ultrasound-guided cannulation left common femoral artery. 2: Selective catheterization contralateral right superficial femoral artery. 3: Right femoral angiogram. 4: Initiation of tPA thrombolysis. Anesthesia: local (With 1 mg of Versed and 50 mcg of fentanyl administered intravenously.) Surgeon: Ramo Mckeon Estimated Blood Loss (ml): 10 Urine output (ml): 0 Pathology: none sent Condition: stable Disposition: ICU (Per protocol) Indications for Procedure: Workup demonstrates a femoral pulse with a popliteal, DP and PT pulses are absent. Arterial Doppler demonstrates TRISTAN of 0.5. CT angiogram demonstrates near flush occlusion of the SFA down to the abductor canal level. The popliteal and tibial vessels appear relatively normal. Because of the patient's significant decrease in arterial perfusion patient is offered angiogram and possible percutaneous intervention. The procedure, risk and benefits were discussed. All questions were answered to patient's satisfaction. Description of Procedure: Patient was brought to the special procedure suite. Both groins were sterilely prepped draped in usual manner. Utilizing ultrasound the left common femoral artery was identified. 1% Xylocaine was utilized for local anesthesia tissues overlying the femoral artery. Through this anesthetized area with the aid of ultrasound a multipurpose needle was utilized to cannulate the artery. Once cannulated soft a guidewire was advanced to the artery. The needle was withdrawn and eventually a 6 Maltese sheath was placed. Guidewire and pigtail type catheter were used in combination to selectively cannulate the right common iliac artery. Guidewire was advanced down to the common femoral level. The catheter was exchanged for an angled glide catheter and a right femoral angiogram was performed. Femoral angiogram demonstrated near flush occlusion of the superficial femoral artery. The SFA was occluded down to the level of the adductor canal the common and profundus were normally patent. No imaging of the aortoiliac segment was performed as CTA had demonstrated no significant disease in the segments. Utilizing roadmapping guidewire was utilized to cannulate the origin of the superficial femoral artery. Guidewire was advanced under fluoroscopic guidance with the aid of angled glide catheter into the popliteal artery. Guidewire was withdrawn and angiogram demonstrated catheter to be intraluminal. Guidewire was readvanced. It was felt the patient would be well served by tPA thrombolysis. Over the guidewire the 6 Maltese sheath was exchanged for an up and over 6 Maltese sheath. Over the guidewire a tPA infusion catheter, 30 cm length of infusion was advanced over the guidewire and positioned in the SFA. Angiography demonstrated the catheter to be in good position. The sheath was secured to the skin with nylon suture. 2 mg of tPA were instilled through the catheter. Appropriate dressing was applied to the left groin area. Patient tolerated procedure well. Patient will be taken to the ICU per protocol for continuation of tPA infusion at 1 mg/h with 500 units of heparin to be administered via the sideport hourly. Plan is to return the patient to the cardiac [facility] for follow-up imaging tomorrow August 06. Total conscious sedation time: 43 minutes. Total fluoroscopy time: 5.5 minutes. Total contrast volume utilized: 30 mL of Isovue-370.
[2023-08-05] MEDS: HYDROmorphone 0.5 MG/0.5 ML SYRINGE IVP PRN ×2 (16:17→18:51)
[2023-08-05] MEDS: ALTEPLASE 2 MG VIAL (CATHFLO) IV STA (16:23)
[2023-08-05 16:32] LABS: Chol/HDL Ratio 3.83 Ratio; LDL Cholesterol,Calculated 87.1 mg/dL (0.0-131.0)
[2023-08-05 16:39] LABS: Basophils % (A) 0 %; Eosinophils # (A) 0.1 k/uL (0-0.7); Eosinophils % (A) 1 %; HCT 41.2 % (39.0-53.0); HGB 13.8 gm/dL (13.0-17.5); Lymphocytes # (A) 1.4 k/uL (1.0-4.8); Lymphocytes % (A) 14 %; MCH 32.3 pg (25.0-35.0); MCHC 33.6 g/dL (31.0-37.0); MCV 96.1 fL (80.0-100.0); Mean Platelet Volume 8.2; Monocytes # (A) 0.4 k/uL (0-1.0); Monocytes % (A) 4 %; Neutrophils % (A) 80 %; Platelet Count 298 k/uL (150-450); RBC 4.28 m/uL (4.30-5.90); RDW 13.2 % (11.5-15.5); WBC 10.1 k/uL (3.8-10.6)
[2023-08-05 16:55] LABS: Prothrombin Time 10.8 sec (10.0-12.5)
[2023-08-05 17:00] LABS: African American GFR (CKD) 88 (>60 ml/min/1.73 sqM); Blood Urea Nitrogen 13 mg/dL (9-20); Non-African American GFR(CKD) 76 (>60 ml/min/1.73 sqM)
[2023-08-05] MEDS: HEPARIN SOD,PORK IN 0.45% NACL 25,000 UNIT in 0.45% NACL 1 250ML.BAG IV SCH (17:00)
[2023-08-05] MEDS: LOSARTAN 25 MG TAB PO STA (17:13)
[2023-08-05] MEDS: hydrALAZINE HCL 20 MG/ML 1 ML VIAL IVP STA (20:47)
[2023-08-05] MEDS: LOSARTAN 25 MG TAB PO SCH (20:48)
[2023-08-06 05:06] LABS: Basophils % (A) 0 %; Eosinophils # (A) 0.2 k/uL (0-0.7); Eosinophils % (A) 2 %; HGB 13.2 gm/dL (13.0-17.5); Lymphocytes # (A) 1.2 k/uL (1.0-4.8); Lymphocytes % (A) 13 %; MCH 32.4 pg (25.0-35.0); MCHC 33.7 g/dL (31.0-37.0); MCV 96.1 fL (80.0-100.0); Mean Platelet Volume 8.3; Monocytes # (A) 0.5 k/uL (0-1.0); Monocytes % (A) 5 %; Neutrophils # (A) 7.2 k/uL (1.3-7.7); Neutrophils % (A) 79 %; Platelet Count 264 k/uL (150-450); RBC 4.06 m/uL (4.30-5.90); RDW 12.8 % (11.5-15.5); WBC 9.1 k/uL (3.8-10.6)
[2023-08-06 05:18] LABS: Prothrombin Time 10.9 sec (10.0-12.5)
--- NOTE | 2023-08-06 06:52 | P.CRDCN ---
History of Present Illness History of present illness: HISTORY OF PRESENTING ILLNESS Patient is a pleasant 67-year-old male with history of previous hypertension however has been off of medications, tobacco abuse who presents secondary to right lower extremity pain. He states initially or last 2 weeks he has been having pain when he walks out to his mailbox in his right lower extremity. He noticed however his pain got much worse and his toes became discolored and purple and therefore presented to emergency department. CTA showed right lower extremity occlusion and therefore vascular surgery was consulted with angiogram showing SFA lesion and therefore he underwent TPA catheter placement. Patient's blood pressure elevated up in the 180s to 190s systolic which may have been partially related to pain. He was given losartan 25 mg initially at 5 PM and then additional dose at 9 PM. His right lower extremity pain has improved drama tically and now has pulses in his dorsalis pedis. He states he was prescribed high blood pressure medication a few years ago by PCP however only took it for a few months and didn't seem like it was making any real difference and therefore stopped. He usually does not check his blood pressure however. He does smoke, previously drank alcohol however quit 5 years ago, no illicit drugs, family hist ory of father with CABG in his 70s and lived till the age of 90. He denies any chest pain or pressure. He does have mild dyspnea which she attributes to smoking. EKG shows normal sinus rhythm, normal axis, no significant ST or T- wave abnormalities. REVIEW OF SYSTEMS At the time of my exam: CONSTITUTIONAL: Denies fever or chills. CARDIOVASCULAR: Denies chest pain, +shortness of breath, no orthopnea, PND or palpitations. RESPIRATORY: Denies cough. GASTROINTESTINAL: Denies abdominal pain, diarrhea, constipation, nausea or vomiting. MUSCULOSKELETAL: Denies myalgias. +RLE pain NEUROLOGIC: Denies numbness, tingling or weakness. ENDOCRINE: Denies fatigue, weight change, polydipsia or polyurina. GENITOURINARY: Denies burning, hematuria or urgency with micturation. HEMATOLOGIC: Denies history of anemia or bleeding. PHYSICAL EXAMINATION Vital signs reviewed. CONSTITUTIONAL: No apparent distress. HEENT: Head is normocephalic. Pupils are equal, round. Sclerae anicteric. Mucous membranes of the mouth are moist. No JVD. No carotid bruit. CHEST EXAMINATION: Lungs are clear to auscultation. No chest wall tenderness is noted on palpation or with deep breathing. HEART EXAMINATION: Regular rate and rhythm. S1, S2 heard. No murmurs, gallops or rub. ABDOMEN: Soft, nontender. Positive bowel sounds. EXTREMITIES: 2+ peripheral pulses, no lower extremity edema and no calf tenderness. NEUROLOGIC EXAMINATION: Patient is awake, alert and oriented x3. ASSESSMENT 1. Acute limb ischemia status post TPA catheter placement / 2. Hypertension 3. Hyperlipidemia 4. Family history of COPD 5. Tobacco abuse PLAN Continue with losartan for blood pressure management. More elevated blood pres sures likely in part related to reperfusion pain and blood pressure appears much better controlled today. Continue to monitor blood pressure. Further workup or tinnitus outpatient given his history of PAD. If more concern of possible thromboembolism would recommend monitor to evaluate for any atrial fibrillation. Discussed tobacco cessation. Past Medical History Past Medical History: No Reported History History of Any Multi-Drug Resistant Organisms: None Reported Past Surgical History: Orthopedic Surgery Additional Past Surgical History / Comment(s): Back surgery 2000, tooth abscess surgery 2014 Past Anesthesia/Blood Transfusion Reactions: No Reported Reaction Past Psychological History: No Psychological Hx Reported Smoking Status: Current every day smoker Past Alcohol Use History: None Reported Past Drug Use History: Marijuana - Past Family History Father Family Medical History: No Reported History Additional Family Medical History / Comment(s): at age 90 Mother Family Medical History: Diabetes Mellitus Additional Family Medical History / Comment(s): at age 85 Medications and Allergies Home Medications Medication Instructions Recorded Confirmed Type No Known Home Medications 08/02/23 08/02/23 History Allergies Allergy/AdvReac Type Severity Reaction Status Date / Time No Known Allergies Allergy Verified 08/02/23 17:33 Physical Exam Vitals: Vital Signs Temp Pulse Pulse Pulse Resp BP BP 08/06/23 06:00 73 14 134/71 08/06/23 05:30 65 16 127/66 08/06/23 05:00 66 7 L 122/66 08/06/23 04:30 67 12 121/61 08/06/23 04:00 98.4 F 75 10 L 114/62 08/06/23 03:30 66 13 114/59 08/06/23 03:00 80 12 117/66 08/06/23 02:30 73 16 123/71 02/03/24 02:00 66 13 135/71 02/03/24 01:30 71 15 128/68 08/06/23 01:00 71 15 131/68 08/06/23 00:30 71 10 L 129/75 08/06/23 00:12 70 16 129/75 08/06/23 00:00 98.1 F 79 11 L 08/05/23 23:30 78 19 121/77 08/05/23 23:00 89 16 148/77 08/05/23 22:30 87 17 151/76 08/05/23 22:00 80 13 150/80 08/05/23 21:30 86 9 L 142/70 08/05/23 21:00 78 9 L 159/77 08/05/23 20:30 81 18 170/78 08/05/23 20:00 98.2 F 73 16 180/87 08/05/23 19:30 73 8 L 166/84 08/05/23 19:00 70 17 169/76 08/05/23 18:30 66 19 169/76 08/05/23 18:00 77 16 167/88 08/05/23 17:30 74 20 189/59 08/05/23 17:15 75 16 191/64 08/05/23 17:00 80 80 18 184/84 167/88 08/05/23 16:45 69 16 189/63 08/05/23 16:30 66 23 190/67 08/05/23 16:15 56 L 16 190/71 08/05/23 16:00 98.0 F 60 60 10 L 185/95 191/72 08/05/23 15:52 98.0 F 66 43 H 08/05/23 12:00 97.6 F 97 18 08/05/23 07:55 98 08/05/23 07:35 99.0 F 98 20 BP Pulse Ox 08/06/23 06:00 08/06/23 05:30 96 08/06/23 05:00 96 08/06/23 04:30 95 08/06/23 04:00 08/06/23 03:30 95 08/06/23 03:00 08/06/23 02:30 08/06/23 02:00 94 L 08/06/23 01:30 94 L 08/06/23 01:00 94 L 08/06/23 00:30 95 08/06/23 00:12 96 08/06/23 00:00 95 08/05/23 23:30 94 L 08/05/23 23:00 95 08/05/23 22:30 97 08/05/23 22:00 94 L 08/05/23 21:30 96 08/05/23 21:00 96 08/05/23 20:30 96 08/05/23 20:00 96 08/05/23 19:30 95 08/05/23 19:00 94 L 08/05/23 18:30 95 08/05/23 18:00 96 08/05/23 17:30 95 08/05/23 17:15 97 08/05/23 17:00 99 08/05/23 16:45 98 08/05/23 16:30 184/84 99 08/05/23 16:15 97 08/05/23 16:00 181/88 98 08/05/23 15:52 97 08/05/23 12:00 170/82 97 08/05/23 07:55 08/05/23 07:35 137/79 96 Intake and Output 08/05/23 08/05/23 08/06/23 14:59 22:59 06:59 Intake Total 387 48 Output Total 195 215 Balance 192 -167 Intake: IV 110 Intake, IV Titration 37 48 Amount Alteplase 10 mg In Sodium 7 8 Chloride 0.9% 90 ml @ 1 MG/HR 10 mls/hr IA .Q10H [facility] Rx#:[id number] Heparin Sod,Pork in 0.45% 0 NaCl 25,000 unit In 0.45 % NaCl 1 250ml.bag @ 18 UNITS/KG/HR 12.247 mls/hr IV .[id number] [facility] Rx#: [id number] Heparin Sod,Pork in 0.45% 30 40 NaCl 25,000 unit In 0.45 % NaCl 1 250ml.bag @ 5 mls/hr IV .Q24H [facility] Rx#: [id number] Oral 240 Output: Urine 195 215 Other: Voiding Method Toilet External Catheter External Catheter # Voids 2 0 0 Weight 72.1 kg ABP, PAP, CO, CI - Last 8 Hours Arterial Blood Pressure 142/54 Arterial Blood Pressure 138/52 Arterial Blood Pressure 139/51 Arterial Blood Pressure 132/48 Arterial Blood Pressure 133/48 Arterial Blood Pressure 126/45 Arterial Blood Pressure 131/46 Arterial Blood Pressure 137/46 Arterial Blood Pressure 145/49 Arterial Blood Pressure 157/54 Arterial Blood Pressure 155/54 Arterial Blood Pressure 149/50 Arterial Blood Pressure 158/57 Arterial Blood Pressure 162/59 Arterial Blood Pressure 172/58 Arterial Blood Pressure 163/57 Results 08/06/23 04:53 08/06/23 04:53 Coagulation 08/05/23 08/05/23 08/06/23 Range/Units 08:49 16:23 04:53 PT 10.8 10.9 (10.0-12.5) sec APTT 22.3 (22.0-30.0) sec Lipids 08/05/23 Range/Units 08:49 Triglycerides 137.00 (0.00-149.00) mg/dL Cholesterol 155.00 (0.00-200.00) mg/dL HDL Cholesterol 40.50 (40.00-60.00) mg/dL Cholesterol/HDL Ratio 3.83 Ratio CBC 08/05/23 08/06/23 Range/Units 16:23 04:53 WBC 10.1 9.1 (3.8-10.6) k/uL RBC 4.28 L 4.06 L (4.30-5.90) m/uL Hgb 13.8 13.2 (13.0-17.5) gm/dL Hct 41.2 39.0 (39.0-53.0) % Plt Count 298 264 (150-450) k/uL Comprehensive Metabolic Panel 08/05/23 08/06/23 Range/Units 16:23 04:53 BUN 13 15 (9-20) mg/dL Creatinine 1.03 (0.66-1.25) mg/dL Current Medications Generic Name Dose Route Start Last Admin Trade Name Freq PRN Reason Stop Dose Admin Aspirin 81 mg 08/03/23 12:45 08/05/23 05:14 Aspirin 81 Mg PO 81 mg DAILY MCKAY Administration Atorvastatin Calcium 40 mg 08/03/23 21:00 08/05/23 20:48 Atorvastatin 40 Mg Tab PO 40 mg HS MCKAY Administration Hydralazine HCl 10 mg 08/02/23 16:39 08/05/23 16:42 Hydralazine Hcl 20 Mg/Ml 1 Ml Vial IVP 10 mg Q4HR PRN Administration Blood Pressure - High Hydromorphone HCl 0.5 mg 08/05/23 18:43 08/05/23 22:55 Hydromorphone 0.5 Mg/0.5 Ml Syringe IVP 0.5 mg Q2HR PRN Administration Pain Alteplase, Recombinant 10 mg/ 100 mls @ 10 mls/hr 08/05/23 14:34 08/05/23 15:29 Sodium Chloride IA 10 mls .Q10H [facility] Administration Protocol 1 MG/HR Heparin Sodium/Sodium Chloride 250 mls @ 5 mls/hr 08/05/23 17:30 08/05/23 17:00 25,000 unit/ Sodium Chloride IV 5 mls/hr .Q24H MCKAY Administration Losartan Potassium 25 mg 08/05/23 21:00 08/05/23 20:48 Losartan 25 Mg Tab PO 25 mg BID MCKAY Administration Naloxone HCl 0.2 mg 08/02/23 16:45 Naloxone 0.4 Mg/Ml 1 Ml Vial IV Q2M PRN Opioid Reversal Nicotine 1 patch 08/04/23 12:30 08/05/23 16:17 Nicotine 21mg/24hr Patch TRANSDERM 1 patch DAILY MCKAY Administration Pantoprazole Sodium 40 mg 08/04/23 07:30 08/05/23 05:14 Pantoprazole 40 Mg Tablet PO 40 mg [id number] MCKAY Administration Intake and Output 08/05/23 08/05/23 08/06/23 14:59 22:59 06:59 Intake Total 387 48 Output Total 195 215 Balance 192 -167 Intake: IV 110 Intake, IV Titration 37 48 Amount Alteplase 10 mg In Sodium 7 8 Chloride 0.9% 90 ml @ 1 MG/HR 10 mls/hr IA .Q10H [facility] Rx#:[id number] Heparin Sod,Pork in 0.45% 0 NaCl 25,000 unit In 0.45 % NaCl 1 250ml.bag @ 18 UNITS/KG/HR 12.247 mls/hr IV .[id number] [facility] Rx#: [id number] Heparin Sod,Pork in 0.45% 30 40 NaCl 25,000 unit In 0.45 % NaCl 1 250ml.bag @ 5 mls/hr IV .Q24H [facility] Rx#: [id number] Oral 240 Output: Urine 195 215 Other: Voiding Method Toilet External Catheter External Catheter # Voids 2 0 0 Weight 72.1 kg Patient Weight 08/06/23 06:59 Weight 72.1 kg 08/06/23 04:53 08/06/23 04:53
--- NOTE | 2023-08-06 08:18 | P.PN ---
Subjective Progress Note Date: 08/05/23 This is a very pleasant 67-year-old male who presented to the emergency department with right foot pain and significant discoloration. Patient reports he noticed his right foot was black and blue and worsens when applying pressure and walking on although slightly subsides when sitting up to alleviate the symptoms. Patient reports this has been ongoing for a few days and has been progressively becoming more prominent and painful. Patient reports he follows with Dr. Llanes in the outpatient setting although has not been seen in the office in over at least 3 years. Patient smokes and reports at least 1 pack a day and has the desire to quit but has not done so. Patient with a past medical history of being a smoker with no other significant history noted. Patient underwent lower extremity CTA showing occlusion of the left right superficial femoral artery with reconstitution of the popliteal artery and small caliber vessels extending to the trifurcation arteries with anterior tibial artery that appears to be patent at the level of the ankle and the posterior tibial and peroneal arteries are narrowed and may occlude above the level of the ankle and vascular surgery was consulted and patient was placed on IV heparin and will be undergoing an angiogram with possible intervention tentatively scheduled for Tuesday. 08/05/2023 Patient is seen in follow-up today currently n.p.o. as patient is to undergo angiogram on the right which is currently pending. Patient is afebrile with no reports of chest pain or shortness of breath. Labs pending from this a.m. Will await report. Review of systems: Constitutional: No reports of fatigue, fever, or chills Cardiovascular: No reports of chest pain or palpitations Respiratory: No reports of shortness of breath or cough GI: No reports of nausea, vomiting, or diarrhea : No reports of dysuria or retention Neurovascular: No reports of weakness or numbness All medications have been reviewed The rest of the 14-point review of systems is negative. PHYSICAL EXAMINATION: GENERAL: The patient is alert and oriented x3, not in any acute distress. Well developed, thin built, elderly appearing HEENT: Pupils are round and equally reacting to light. EOMI. No scleral icterus. No conjunctival pallor. Normocephalic, atraumatic. No pharyngeal erythema. No thyromegaly. CARDIOVASCULAR: S1 and S2 present. No murmurs, rubs, or gallops. PULMONARY: Chest is clear to auscultation, no wheezing or crackles. ABDOMEN: Soft, nontender, nondistended, normoactive bowel sounds. No palpable organomegaly. MUSCULOSKELETAL: No joint swelling or deformity. EXTREMITIES: No cyanosis, clubbing, or pedal edema. NEUROLOGICAL: Gross neurological examination did not reveal any focal deficits. SKIN: No rashes. 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 Heparin has been turned off and patient is n.p.o. at midnight. Diet to be resumed once cleared by vascular surgery A.m. labs pending Patient with noncompliance and has not followed up with a primary care provider in years and normally follows with Dr. Elie Llanes in the outpatient setting and will need to reestablish Discussed and encouraged complete tobacco cessation and have provided nicotine patches Continue with hydralazine as needed for now and will await vascular surgery report The impression and plan of care has been dictated by Juana Andrea, Nurse Practitioner as directed. Dr. Paul MD I have performed a history and examination and MDM of this patient, discussed the same with the dictator, and agree with the dictator's assessment and plan as written ,documented as a scribe. Based on total visit time, I have performed more than 50% of the visit. Objective - Vital Signs Vital signs: Vital Signs Temp 99.0 F 08/05/23 07:35 Pulse 98 08/05/23 07:55 Resp 20 08/05/23 07:35 BP 137/79 08/05/23 07:35 Pulse Ox 96 08/05/23 07:35 FiO2 Intake & Output 08/04/23 08/05/23 08/05/23 18:59 06:59 18:59 Intake Total 726.204 180.708 Output Total 440 Balance 726.204 -259.292 Intake: Intake, IV Titration 250.204 180.708 Amount Heparin Sod,Pork in 0.45% 250.204 180.708 NaCl 25,000 unit In 0.45 % NaCl 1 250ml.bag @ 18 UNITS/KG/HR 12.247 mls/hr IV .[id number] [facility] Rx#: [id number] Oral 476 Output: Urine 440 Other: Voiding Method Toilet Toilet Toilet # Voids 2 - Labs CBC & Chem 7: 08/06/23 04:53 08/06/23 04:53 Labs: Abnormal Lab Results - Last 24 Hours (Table) 08/04/23 08/04/23 08/04/23 Range/Units 14:22 14:22 14:22 RBC 4.20 L (4.30-5.90) m/uL APTT 61.7 H (22.0-30.0) sec Chloride 109 H (98-107) mmol/L Carbon Dioxide 21 L (22-30) mmol/L Glucose 129 H (74-99) mg/dL Total Protein 5.8 L (6.3-8.2) g/dL Albumin 3.4 L (3.5-5.0) g/dL
[2023-08-06] MEDS ORDERED: fentaNYL (PF) 50 MCG/ML 2 ML AMP ONE (12:19)
[2023-08-06] MEDS: MIDAZOLAM 2 MG/2 ML VIAL IVP ONE (12:25)
[2023-08-06] MEDS: fentaNYL (PF) 50 MCG/ML 2 ML AMP IVP ONE (12:25)
[2023-08-06] MEDS: SODIUM CHLORIDE 0.9% 250 ML IV ONE (12:31)
[2023-08-06] MEDS: IOPAMIDOL-300 100ML BTL INJ ONE (12:57)
--- NOTE | 2023-08-06 13:20 | P.OP ---
Date of Procedure: 08/06/23 Description of Procedure: Preoperative diagnosis: Previously initiated tPA thrombolysis, acute limb ischemia Postoperative diagnosis: Same Procedure: Right lower extremity angiogram via previously placed catheter Percutaneous transluminal balloon angioplasty with drug-coated balloon 6 x 120 right superficial femoral artery Left iliofemoral angiogram, percutaneous closure Moderate conscious sedation x 22 minutes with personal monitoring of certified RN administration with hemodynamic monitoring Surgeon: Lisbet Barrera D.O. EBL: Less than 5 cc IV fluids: See records Urine output: Not measured Drains: None Complications: None immediately apparent Condition: Stable Operative indication and findings: Patient is a 67-year-old male who previously was initiated on tPA thrombolysis for right lower extremity ischemic changes. He presents back today for repeat evaluation. There was evidence of small he matoma at the access site at the beginning of the procedure. Procedure in detail: Patient was taken to the special stain placed in supine position. The bilateral groins and previous catheter were prepped and draped in usual sterile fashion. A preprocedural timeout was performed, all parties were in agreement. A wire was placed down the previously placed catheter catheter was removed. An angiogram was obtained via the sheath showing significant improvement with resolution of thrombus. There was brisk flow through the common femoral profundus arteries. There was brisk flow through the superficial femoral artery. There was small areas of nonflow limiting dissection in the proximal superficial femoral artery. At the distal superficial femoral artery at the level of the adductor canal there was more apparent narrowing this was balloon angioplastied with a drug-coated balloon 6 x 120 with significant improvement. The popliteal artery. Widely patent without significant disease. The patient had three-vessel runoff to the ankle and has palpable DP PT pulses at this time therefore conclusion of procedure. Catheters and wires were removed. A left iliofemoral angiogram was performed showing adequate placement of catheter and ability for percutaneous closure. A short 6 sheath was exchanged and a Vascade closure device was utilized. Manual pressure was held till hemostasis was adequate and to help try to reduce some of the previous hematoma. No further hematoma formation at this point.
--- NOTE | 2023-08-06 14:38 | IR ---
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 CLINICAL INDICATION:Male, 67 years old with history of ARTERIAL OCCLUSION, TPA INFUSION; , [facility] Total fluoroscopy time is 2.7 min. DAP: 1.42 Gycm2 Please see the operative/procedural note for further details.
[2023-08-06] MEDS: HEPARIN SOD,PORK IN 0.45% NACL 25,000 UNIT in 0.45% NACL 1 250ML.BAG IV SCH (16:13)
[2023-08-06] MEDS: HEPARIN SODIUM 1,000 UN/ML (10ML VL) IV PRN (23:34)
--- NOTE | 2023-08-07 09:24 | P.PN ---
Subjective HISTORY OF PRESENTING ILLNESS Patient is a pleasant 67-year-old male with history of previous hypertension however has been off of medications, tobacco abuse who presents secondary to right lower extremity pain. He states initially or last 2 weeks he has been having pain when he walks out to his mailbox in his right lower extremity. He noticed however his pain got much worse and his toes became discolored and purple and therefore presented to emergency department. CTA showed right lower extremity occlusion and therefore vascular surgery was consulted with angiogram showing SFA lesion and therefore he underwent TPA catheter placement. Patient's blood pressure elevated up in the 180s to 190s systolic which may have been partially related to pain. He was given losartan 25 mg initially at 5 PM and then additional dose at 9 PM. His right lower extremity pain has improved dramatically and now has pulses in his dorsalis pedis. He states he was prescribed high blood pressure medication a few years ago by PCP however only took it for a few months and didn't seem like it was making any real difference and therefore stopped. He usually does not check his blood pressure however. He does smoke, previously drank alcohol however quit 5 years ago, no illicit drugs, family history of father with CABG in his 70s and lived till the age of 90. He denies any chest pain or pressure. He does have mild dyspnea which she attributes to smoking. EKG shows normal sinus rhythm, normal axis, no significant ST or T-wave abnormalities. 2/4 Patient seen and examined. Patient underwent recheck with intervention of the right lower extremity and good pulses. Remains on heparin drip. No further right lower extremity pain and states he feels excellent. With improvement in pain in his blood pressures come down significantly in the 90s over 50s on the losartan 25 twice a day. We discussed monitoring and would recommend stopping the losartan and monitoring blood pressure home. PHYSICAL EXAMINATION Vital signs reviewed. CONSTITUTIONAL: No apparent distress. HEENT: Head is normocephalic. Pupils are equal, round. Sclerae anicteric. Mucous membranes of the mouth are moist. No JVD. No carotid bruit. CHEST EXAMINATION: Lungs are clear to auscultation. No chest wall tenderness is noted on palpation or with deep breathing. HEART EXAMINATION: Regular rate and rhythm. S1, S2 heard. No murmurs, gallops or rub. ABDOMEN: Soft, nontender. Positive bowel sounds. EXTREMITIES: 2+ peripheral pulses, no lower extremity edema and no calf ten derness. NEUROLOGIC EXAMINATION: Patient is awake, alert and oriented x3. ASSESSMENT 1. Acute limb ischemia status post TPA catheter placement / 2. Hypertension 3. Hyperlipidemia 4. Family history of COPD 5. Tobacco abuse PLAN Patient's blood pressure much much better and majority of improvement resulted with improvement in pain control. Unclear if patient will need blood pressure medications long-term. Given significantly lower blood pressures we will stop losartan. Reasonable for discharge home and monitoring blood pressures at home. If remains high likely losartan 12.5 or 25 daily. Objective - Vital Signs Vital signs: Vital Signs Temp 98.7 F 08/07/23 08:00 Pulse 80 08/07/23 09:00 Resp 26 H 08/07/23 09:00 BP 105/58 08/07/23 09:00 Pulse Ox 94 L 08/07/23 08:00 FiO2 Intake & Output 08/06/23 08/07/23 08/07/23 18:59 06:59 18:59 Intake Total 181 63.592 88.323 Output Total 1600 375 Balance -1419 63.592 -286.677 Weight 72.5 kg Intake: IV 100 Intake, IV Titration 81 63.592 88.323 Amount Alteplase 10 mg In Sodium 51 Chloride 0.9% 90 ml @ 1 MG/HR 10 mls/hr IA .Q10H [facility] Rx#:[id number] Heparin Sod,Pork in 0.45% 63.592 88.323 NaCl 25,000 unit In 0.45 % NaCl 1 250ml.bag @ 12 UNITS/KG/HR 8.652 mls/hr IV .Q24H [facility] Rx#: [id number] Heparin Sod,Pork in 0.45% 30 NaCl 25,000 unit In 0.45 % NaCl 1 250ml.bag @ 5 mls/hr IV .Q24H [facility] Rx#: [id number] Output: Urine 1600 375 Other: Voiding Method External Catheter Urinal Urinal # Voids 0 0 # Bowel Movements 1 ABP, PAP, CO, CI - Last Documented Arterial Blood Pressure 155/63 - Labs CBC & Chem 7: 08/06/23 04:53 08/06/23 04:53 Labs: Abnormal Lab Results - Last 24 Hours (Table) 08/06/23 08/07/23 Range/Units 20:52 04:02 APTT 30.2 H 55.0 H (22.0-30.0) sec
[2023-08-07] MEDS: APIXABAN 5 MG TAB PO SCH (10:12)
[2023-08-07 11:06] LABS: Chol/HDL Ratio 3.34 Ratio; LDL Cholesterol,Calculated 73.4 mg/dL (0.0-131.0); VLDL Calculation 17.68 mg/dL (5.00-40.00)
[2023-08-07 12:27] VITALS: BP 114/73; PULSE 87; RESP 23; TEMP 98.4
--- NOTE | 2023-08-12 17:18 | CDI ---
Documentation Clarification Form Date: From: Radha Doran Phone: [phone] Admit Date: 08/02/2023 04:52:00 PM Patient Name: Satnam Null Visit Number: [id number] Discharge Date: 08/07/2023 04:30:00 PM ATTENTION: The Clinical Documentation Specialists (CDI) and [facility] Coding Staff appreciate your assistance in clarifying documentation. Please respond to the clarification below the line at the bottom and electronically sign. The CDI & [facility] Coding staff will review the response and follow-up if needed. Please note: Queries are made part of the Legal Health Record. If you have any questions, please contact the author of this message via ITS. Dr. Lisbet Barrera Your patient has "small hematoma" documented in the OP note on 08/06. Please clarify if there is an additional diagnosis and/or clinical significance related to this. History/Risk Factors: 67-year-old male who previously was initiated on tPA thrombolysis for right lower extremity ischemic changes. He presents back today for repeat evaluation." - Per OP Note on 08/06 Clinical indicators: Per OP Note on 08/06 Preoperative & Postoperative diagnosis: "Previously initiated tPA thrombolysis, acute limb ischemia" "Procedure: Right lower extremity angiogram via previously placed catheter" "evidence of small hematoma at the access site at the beginning of the procedure" "No further hematoma formation at this point." Treatment: "Manual pressure was held till hemostasis was adequate and to help try to reduce some of the previous hematoma" - Per OP note on 08/06 Is there an additional diagnosis and/or clinical significance related to the above? [ x ] Hematoma, not clinically significant, is an expected outcome of the surgical procedure [ ] Postprocedural Hematoma, is a complication of surgical procedure [ ] Other, please specify [ ] Unable to determine MTDD
== END 2023-08-07 16:30 | disposition home or self-care (01) | DRG 254 ==
LOC: EC 12:13 → 3SCARD 16:52 → 2SICU 08-05 15:03
PROVIDERS: ADMIT Internal Medicine; ATTEND Internal Medicine
PROC: 04HK33Z Insertion of Infusion Device into Right Femoral Artery, Percutaneous Approach (ICD-10-PCS; 2023-08-05 07:30)
PROC: 3E05317 Introduction of Other Thrombolytic into Peripheral Artery, Percutaneous Approach (ICD-10-PCS; 2023-08-05 07:30)
PROC: 047K3ZZ Dilation of Right Femoral Artery, Percutaneous Approach (ICD-10-PCS; principal; 2023-08-06 10:30)
DX: I70.221 Atherosclerosis of native arteries of extremities with rest pain, right leg (principal); I10 Essential (primary) hypertension; E78.5 Hyperlipidemia, unspecified; F17.210 Nicotine dependence, cigarettes, uncomplicated; M54.31 Sciatica, right side; N43.3 Hydrocele, unspecified; Z91.198 Patient's noncompliance with other medical treatment and regimen for other reason; Z71.6 Tobacco abuse counseling; Z82.5 Family history of asthma and other chronic lower respiratory diseases
CPT/HCPCS: 36415; 37211; 37214; 37224; 75710; 76937; 80053; 80061; 82565; 83605; 83735; 84520; 85025; 85384; 85610; 85730; 86850; 86900; 86901; 93005; 93922; 96365; 96366; 96375; 96376; 99291

== ENCOUNTER 2023-09-12 19:31 | Inpatient (IN) | payer MEDICARE, BC ==
[2023-09-12 20:31] LABS: Anisocytosis Slight; Basophils % (A) 0 %; Eosinophils # (A) 0.1 k/uL (0-0.7); Eosinophils % (A) 1 %; Hypochromasia Marked; Lymphocytes # (A) 1.6 k/uL (1.0-4.8); Lymphocytes % (A) 16 %; MCH 25.3 pg (25.0-35.0); MCHC 28.4 g/dL (31.0-37.0); Mean Platelet Volume 7.5; Monocytes # (A) 0.2 k/uL (0-1.0); Monocytes % (A) 2 %; Neutrophils # (A) 7.8 k/uL (1.3-7.7); Neutrophils % (A) 79 %; Platelet Count 414 k/uL (150-450); Poikilocytosis Marked; RBC 1.31 m/uL (4.30-5.90); RDW 18.4 % (11.5-15.5); WBC 9.9 k/uL (3.8-10.6)
[2023-09-12 20:34] LABS: HCT 11.6 % (39.0-53.0)
[2023-09-12 20:35] LABS: HGB 3.3 gm/dL (13.0-17.5)
[2023-09-12 20:56] LABS: Anisocytosis (M) Present; Hypochromasia (M) Present; Polychromasia Present; Target Cells Present
[2023-09-12 21:13] LABS: Partial Thromboplastin Time 16.9 sec (22.0-30.0)
[2023-09-12 21:17] LABS: ALT 33 U/L (4-49); AST 30 U/L (17-59); African American GFR (CKD) 37 (>60 ml/min/1.73 sqM); Albumin 3.5 g/dL (3.5-5.0); Alkaline Phosphatase 111 U/L (38-126); Anion Gap 22 mmol/L; Blood Urea Nitrogen 21 mg/dL (9-20); Calcium 8.5 mg/dL (8.4-10.2); Chloride 103 mmol/L (98-107); Glucose 169 mg/dL (74-99); Non-African American GFR(CKD) 32 (>60 ml/min/1.73 sqM); Potassium 4.7 mmol/L (3.5-5.1); Sodium 134 mmol/L (137-145); Total Bilirubin 0.3 mg/dL (0.2-1.3); Total Protein 5.6 g/dL (6.3-8.2)
[2023-09-12 21:29] LABS: Carbon Dioxide 9 mmol/L (22-30)
--- NOTE | 2023-09-12 21:29 | XR ---
EXAMINATION TYPE: XR chest 2V DATE OF EXAM: 09/12/2023 9:21 PM CLINICAL INDICATION:Male, 67 years old with history of difficulty breathing; [facility] COMPARISON: None TECHNIQUE: XR chest 2V Frontal and lateral views of the chest. FINDINGS: Lungs/Pleura: There is no evidence of pleural effusion, focal consolidation, or pneumothorax. Pulmonary vascularity: Unremarkable. Heart/mediastinum: Cardiomediastinal silhouette is unremarkable. Musculoskeletal: No acute osseous pathology. Other findings: None IMPRESSION: No acute cardiopulmonary disease/process.
--- NOTE | 2023-09-12 21:44 | ED ---
General Adult HPI - General Chief complaint: Shortness of Breath Stated complaint: SOB Time Seen by Provider: 09/12/23 19:38 Source: patient, EMS Mode of arrival: EMS - History of Present Illness Initial comments: 67-year-old male recently discharged from this facility after presenting here secondary to right foot discoloration. Had a CT at that time showing occlusion of the right superficial femoral artery with reconstitution of the popliteal artery and small caliber vessels extending to the trifurcation arteries with anterior tibial artery that appears to be patent at the level of the ankle. Had percutaneous transluminal balloon angioplasty with drug-eluting balloon in the right superficial femoral artery. Discharged home with Eliquis 5 mg twice daily. Today, presenting secondary to shortness of breath. Reports over the past week or so has become more fatigued and today started to become short of breath. No chest pain. Denies abdominal pain. Denies any blood in the stool or black/tarry stools. No fever or chills. No other complaints at this time. - Related Data Previous Rx's Medication Instructions Recorded Apixaban [Eliquis] 5 mg PO BID #60 tab 08/07/23 Aspirin 81 mg PO DAILY #30 tab 08/07/23 Atorvastatin [Lipitor] 40 mg PO HS #30 tab 08/07/23 Allergies Allergy/AdvReac Type Severity Reaction Status Date / Time No Known Allergies Allergy Verified 09/12/23 19:44 Review of Systems ROS Statement: Those systems with pertinent positive or pertinent negative responses have been documented in the HPI. ROS Other: All systems not noted in ROS Statement are negative. Past Medical History Past Medical History: No Reported History History of Any Multi-Drug Resistant Organisms: None Reported Past Surgical History: Orthopedic Surgery Additional Past Surgical History / Comment(s): Back surgery 2000, tooth abscess surgery 2014 Past Anesthesia/Blood Transfusion Reactions: No Reported Reaction Past Psychological History: No Psychological Hx Reported Smoking Status: Former smoker Past Alcohol Use History: None Reported Past Drug Use History: Marijuana - Past Family History Father Family Medical History: No Reported History Additional Family Medical History / Comment(s): at age 90 Mother Family Medical History: Diabetes Mellitus Additional Family Medical History / Comment(s): at age 85 General Exam General appearance: alert, in no apparent distress ENT exam: Present: mucous membranes moist Respiratory exam: Present: normal lung sounds bilaterally Cardiovascular Exam: Present: regular rate, normal rhythm GI/Abdominal exam: Present: soft, normal bowel sounds. Absent: distended, tenderness, guarding, rebound, rigid Rectal exam: Present: other (Chaperoned by Adri RN. No gross blood visualized. No melena visualized.) Back exam: Present: normal inspection Neurological exam: Present: alert, oriented X3 Skin exam: Present: pallor Course Vital Signs 09/12/23 19:36 Temperature 97.7 F Respiratory 20 Rate Blood Pressure 147/71 O2 Sat by Pulse 97 Oximetry Medical Decision Making - Medical Decision Making Was pt. sent in by a medical professional or institution (, PA, PACKAGING LINE OPERATOR, urgent care, hospital, or custodial...) When possible be specific @ -No Did you speak to anyone other than the patient for history (EMS, parent, family, police, friend...)? What history was obtained from this source @ -No Did you review nursing and triage notes (agree or disagree)? Why? @ -I reviewed and agree with nursing and triage notes Were old charts reviewed (outside hosp., previous admission, EMS record, old EKG, old radiological studies, urgent care reports/EKG's, custodial records)? Report findings @ -No old charts were reviewed Differential Diagnosis (chest pain, altered mental status, abdominal pain women, abdominal pain men, vaginal bleeding, weakness, fever, dyspnea, syncope, headache, dizziness, GI bleed, back pain, seizure, CVA, palpatations, mental health, musculoskeletal)? @ -Differential Dyspnea: Coronary syndrome, arrhythmia, tamponade, asthma, COPD, pulmonary embolism, pneumonia, pneumothorax, pulmonary effusion, anaphylaxis, diabetic ketoacidosis, flailed chest, pulmonary contusion, diaphragmatic rupture, anemia, neuromuscular, this is not meant to be an all-inclusive list. EKG interpreted by me (3pts min.). @ -EKG interpreted by me showing diffuse ST depressions in the inferior/lateral leads. Rate of 92 bpm. OK 130, QRS 94, QT/QTc 362/411. X-rays interpreted by me (1pt min.). @ -None done CT interpreted by me (1pt min.). @ -None done U/S interpreted by me (1pt. min.). @ -None done What testing was considered but not performed or refused? (CT, X-rays, U/S, labs)? Why? @ -None What meds were considered but not given or refused? Why? @ -None Did you discuss the management of the patient with other professionals (professionals i.e. , PA, PACKAGING LINE OPERATOR, lab, RT, psych nurse, social media campaign manager, embroidery machine operator, teacher, general service officer, manager case)? Give summary @ - Case discussed with Dr. Llanes, who accepts admission and is in agreement with plan of care. Case discussed with Dr. Sarkar, fiscal accountant, who is in agreement with plan of c are. Was smoking cessation discussed for >3mins.? @ -No Was critical care preformed (if so, how long)? @ -Yes, 35 minutes Were there social determinants of health that impacted care today? How? (Homelessness, low income, unemployed, alcoholism, drug addiction, transportation, low edu. Level, literacy, decrease access to med. care, fci, rehab)? @ -No Was there de-escalation of care discussed even if they declined (Discuss DNR or withdrawal of care, Hospice)? DNR status @ -No What co-morbidities impacted this encounter? (DM, HTN, Smoking, COPD, CAD, Canc er, CVA, ARF, Chemo, Hep., AIDS, mental health diagnosis, sleep apnea, morbid obesity)? @ -Blood thinner use Was patient admitted / discharged? Hospital course, mention meds given and route, prescriptions, significant lab abnormalities, going to OR and other pertinent info. @ -Admission 67-year-old male recently discharged from this facility after finding an occlusion of the right superficial femoral artery on 08/07/23. Had percutaneous transluminal balloon angioplasty with drug-eluting balloon in the right superficial femoral artery. He was then discharged on Eliquis 5 mg twice daily. Reports over the past week has had some increasing fatigue and today started to become short of breath. Laboratory studies reviewed. Hemoglobin signific antly low at 3.3, prior 13.2. Hematocrit 11.6. Chemistry panel significant for BUN of 21, creatinine 2.11. Lactic acid 10.5. Initial troponin 0.099. Occult blood positive. Serology panel negative. On examination there is no gross blood however patient does appear very pale. Ordered 4 units of PRBCs. Protonix initiated here in the ED. Patient will be admitted to the ICU with consults to cardiology, GI, and vascular surgery. Undiagnosed new problem with uncertain prognosis? @ -No Drug Therapy requiring intensive monitoring for toxicity (Heparin, Nitro, Insulin, Cardizem)? @ -Yes, PRBCs monitor for transfusion reaction Were any procedures done? @ -No Diagnosis/symptom? @ -Anemia, EKG changes, kidney injury Acute, or Chronic, or Acute on Chronic? @ -Acute Uncomplicated (without systemic symptoms) or Complicated (systemic symptoms)? @ -Complicated Side effects of treatment? @ -No Exacerbation, Progression, or Severe Exacerbation? @ -No Poses a threat to life or bodily function? How? (Chest pain, USA, ID, pneumonia, PE, COPD, DKA, ARF, appy, cholecystitis, CVA, Diverticulitis, Homicidal, Suicidal, threat to staff... and all critical care pts) @ -Yes, significant anemia - Lab Data Result diagrams: 09/12/23 20:23 09/12/23 20:35 Lab Results 09/12/23 09/12/23 09/12/23 Range/Units 19:58 20:23 20:23 WBC 9.9 (3.8-10.6) k/uL RBC 1.31 L (4.30-5.90) m/uL Hgb 3.3 L* D (13.0-17.5) gm/dL Hct 11.6 L* (39.0-53.0) % MCV 89.0 D (80.0-100.0) fL MCH 25.3 (25.0-35.0) pg MCHC 28.4 L (31.0-37.0) g/dL RDW 18.4 H (11.5-15.5) % Plt Count 414 (150-450) k/uL MPV 7.5 Neutrophils % 79 % Lymphocytes % 16 % Monocytes % 2 % Eosinophils % 1 % Basophils % 0 % Neutrophils # 7.8 H (1.3-7.7) k/uL Lymphocytes # 1.6 (1.0-4.8) k/uL Monocytes # 0.2 (0-1.0) k/uL Eosinophils # 0.1 (0-0.7) k/uL Basophils # 0.0 (0-0.2) k/uL Manual Slide Review Performed Polychromasia Present Hypochromasia Marked Hypochromasia (manual) Present Poikilocytosis Marked Anisocytosis Slight Anisocytosis (manual) Present Target Cells Present PT 11.0 (10.0-12.5) sec INR 1.0 (<1.2) APTT 16.9 L (22.0-30.0) sec Sodium (137-145) mmol/L Potassium (3.5-5.1) mmol/L Chloride (98-107) mmol/L Carbon Dioxide (22-30) mmol/L Anion Gap mmol/L BUN (9-20) mg/dL Creatinine (0.66-1.25) mg/dL Est GFR (CKD-EPI)AfAm (>60 ml/min/1.73 sqM) Est GFR (CKD-EPI)NonAf (>60 ml/min/1.73 sqM) Glucose (74-99) mg/dL Plasma Lactic Acid Noah (0.7-2.0) mmol/L Calcium (8.4-10.2) mg/dL Total Bilirubin (0.2-1.3) mg/dL AST (17-59) U/L ALT (4-49) U/L Alkaline Phosphatase (38-126) U/L Troponin I (0.000-0.034) ng/mL Total Protein (6.3-8.2) g/dL Albumin (3.5-5.0) g/dL Stool Occult Blood (Negative) Influenza Type A (PCR) Not Detected (Not Detectd) Influenza Type B (PCR) Not Detected (Not Detectd) RSV (PCR) Not Detected (Not Detectd) SARS-CoV-2 (PCR) Not Detected (Not Detectd) Blood Type Blood Type Recheck Bld Type Recheck Status Antibody Screen Crossmatch Spec Expiration Date 09/12/23 09/12/23 09/12/23 Range/Units 20:35 20:35 20:35 WBC (3.8-10.6) k/uL RBC (4.30-5.90) m/uL Hgb (13.0-17.5) gm/dL Hct (39.0-53.0) % MCV (80.0-100.0) fL MCH (25.0-35.0) pg MCHC (31.0-37.0) g/dL RDW (11.5-15.5) % Plt Count (150-450) k/uL MPV Neutrophils % % Lymphocytes % % Monocytes % % Eosinophils % % Basophils % % Neutrophils # (1.3-7.7) k/uL Lymphocytes # (1.0-4.8) k/uL Monocytes # (0-1.0) k/uL Eosinophils # (0-0.7) k/uL Basophils # (0-0.2) k/uL Manual Slide Review Polychromasia Hypochromasia Hypochromasia (manual) Poikilocytosis Anisocytosis Anisocytosis (manual) Target Cells PT (10.0-12.5) sec INR (<1.2) APTT (22.0-30.0) sec Sodium 134 L (137-145) mmol/L Potassium 4.7 (3.5-5.1) mmol/L Chloride 103 (98-107) mmol/L Carbon Dioxide 9 L* (22-30) mmol/L Anion Gap 22 mmol/L BUN 21 H (9-20) mg/dL Creatinine 2.11 H (0.66-1.25) mg/dL Est GFR (CKD-EPI)AfAm 37 (>60 ml/min/1.73 sqM) Est GFR (CKD-EPI)NonAf 32 (>60 ml/min/1.73 sqM) Glucose 169 H (74-99) mg/dL Plasma Lactic Acid Noah 10.5 H* (0.7-2.0) mmol/L Calcium 8.5 (8.4-10.2) mg/dL Total Bilirubin 0.3 (0.2-1.3) mg/dL AST 30 (17-59) U/L ALT 33 (4-49) U/L Alkaline Phosphatase 111 (38-126) U/L Troponin I 0.099 H* (0.000-0.034) ng/mL Total Protein 5.6 L (6.3-8.2) g/dL Albumin 3.5 (3.5-5.0) g/dL Stool Occult Blood (Negative) Influenza Type A (PCR) (Not Detectd) Influenza Type B (PCR) (Not Detectd) RSV (PCR) (Not Detectd) SARS-CoV-2 (PCR) (Not Detectd) Blood Type Blood Type Recheck Bld Type Recheck Status Antibody Screen Crossmatch Spec Expiration Date 09/12/23 09/12/23 Range/Units 20:52 20:55 WBC (3.8-10.6) k/uL RBC (4.30-5.90) m/uL Hgb (13.0-17.5) gm/dL Hct (39.0-53.0) % MCV (80.0-100.0) fL MCH (25.0-35.0) pg MCHC (31.0-37.0) g/dL RDW (11.5-15.5) % Plt Count (150-450) k/uL MPV Neutrophils % % Lymphocytes % % Monocytes % % Eosinophils % % Basophils % % Neutrophils # (1.3-7.7) k/uL Lymphocytes # (1.0-4.8) k/uL Monocytes # (0-1.0) k/uL Eosinophils # (0-0.7) k/uL Basophils # (0-0.2) k/uL Manual Slide Review Polychromasia Hypochromasia Hypochromasia (manual) Poikilocytosis Anisocytosis Anisocytosis (manual) Target Cells PT (10.0-12.5) sec INR (<1.2) APTT (22.0-30.0) sec Sodium (137-145) mmol/L Potassium (3.5-5.1) mmol/L Chloride (98-107) mmol/L Carbon Dioxide (22-30) mmol/L Anion Gap mmol/L BUN (9-20) mg/dL Creatinine (0.66-1.25) mg/dL Est GFR (CKD-EPI)AfAm (>60 ml/min/1.73 sqM) Est GFR (CKD-EPI)NonAf (>60 ml/min/1.73 sqM) Glucose (74-99) mg/dL Plasma Lactic Acid Noah (0.7-2.0) mmol/L Calcium (8.4-10.2) mg/dL Total Bilirubin (0.2-1.3) mg/dL AST (17-59) U/L ALT (4-49) U/L Alkaline Phosphatase (38-126) U/L Troponin I (0.000-0.034) ng/mL Total Protein (6.3-8.2) g/dL Albumin (3.5-5.0) g/dL Stool Occult Blood Positive (Negative) Influenza Type A (PCR) (Not Detectd) Influenza Type B (PCR) (Not Detectd) RSV (PCR) (Not Detectd) SARS-CoV-2 (PCR) (Not Detectd) Blood Type A Positive Blood Type Recheck A Pos Bld Type Recheck Status No Antibody Screen NEGATIVE Crossmatch See Detail Spec Expiration Date 09/15/20232354 Disposition Clinical Impression: Anemia, Shortness of breath, ST segment changes on electrocardiogram Disposition: ADMITTED IP TO THIS HOSP Condition: Fair Referrals: Elie Llanes MD [Primary Care Provider] - 1-2 days Time of Disposition: 21:45
[2023-09-12] MEDS: PANTOPRAZOLE 40 MG/10 ML VIAL IVP STA (21:54)
[2023-09-12] MEDS ORDERED: ACETAMINOPHEN TAB 325 MG TAB PO PRN (22:05)
[2023-09-12] MEDS ORDERED: NALOXONE 0.4 MG/ML 1 ML VIAL IV PRN (22:05)
[2023-09-12] MEDS ORDERED: Magnesium Replacement Protocol 1 EACH MISC MISCELLANE PRN (22:33)
[2023-09-12] MEDS ORDERED: Potassium Replacement Protocol 1 EACH MISC MISCELLANE PRN (22:33)
[2023-09-12 23:13] LABS: Glucose,Whole Blood 103 mg/dL (70-110)
[2023-09-13] MEDS: SODIUM CHLORIDE 0.9% 1,000 ML IV SCH (00:10)
[2023-09-13] MEDS: SODIUM CHLORIDE 0.9% 1,000 ML IV STA (00:15)
--- NOTE | 2023-09-13 02:13 | P.CNPUL ---
History of Present Illness Consult date: 09/13/23 Requesting physician: Britton Fine Reason for consult: other (GI bleed; ICU management) Chief complaint: Generalized weakness and shortness of breath History of present illness: I am seeing this patient in new consultation today 09/13/2023 in the intensive care unit after he was found to be severely anemic on admission, with a hemoglobin of 3.3, requiring multiple PRBC transfusions. Patient is a 67-year-old white male with past medical history significant for hypertension and peripheral arterial disease. His primary care provider is Dr. Llanes, patient admits that he does not follow-up like he should. He is supposed to be taking antihypertensive medications, but is not compliant. He recently had a hospital admission 08/02/2023 for an occlusion of the right SFA. He underwent catheter introduced thrombolysis and then percutaneous transluminal balloon angioplasty with drug-coated balloon 6 x 120 of the right superficial femoral artery. He was discharged on Eliquis. Patient states that over the last week he has become progressively more weak. This is generalized weakness. Nonfocal. He states that yesterday, that he got up to take a shower, and was so weak that he had to crawl out of the shower to get to the phone and call 911. He was short of breath at this time. On arrival to the emergency room, he was noted to have a hemoglobin of 3.3 g/dL. He does endorse black stools while at home. Denies any diarrhea. Denies any nausea, vomiting, or hematemesis. Denies any abdominal pain. Denies any previous peptic ulcer disease. He is anticoagulated on Eliquis, and does occasional use ibuprofen. He has not had a previous colonoscopy. For this reason, we were consulted and the patient was admitted to the intensive care unit. He is currently lying in bed, on 6 L/min nasal cannula, in no acute distress. Chest x-ray does not show any acute cardiopulmonary process. He is talkative. He has generalized pallor. Blood pressure is normotensive despite severe anemia. He is receiving his first unit of PRBCs. CBC on arrival includes a WBC count of 9.9, hemoglobin 3.3, hematocrit 11.6, platelets 414. PT 11, INR 1, APTT 16.9. BMP on arrival includes a sodium of 134, potassium 4.7, chloride 103, serum bicarb 9, BUN 21, creatinine 2.11, glucose 169. Normal saline is infusing at 75 mL/h. Lactic acid level was elevated at 10.5 and is down to 3.4. LFTs not elevated. Troponin levels are elevated and consistent with type II [place]. Patient denies any chest pain. EKG on arrival shows normal sinus rhythm with nonspecific ST depression. Vital signs are stable. Review of Systems REVIEW OF SYSTEMS: CONSTITUTIONAL: Denies any recent significant weight loss or weight gain. Admits generalized weakness and fatigue. Denies fevers. EYES: Denies change in vision. EARS, NOSE, MOUTH, THROAT: Denies headaches, denies sore throat. CARDIOVASCULAR: Denies chest pain, palpitations or syncopal episodes. RESPIRATORY: Denies cough, congestion or hemoptysis. Admits exertional shortness of breath. GASTROINTESTINAL: Denies change in appetite, abdominal pain, nausea and vomiting, or diarrhea. Admits formed black stools. GENITOURINARY: Denies hematuria, denies infections. MUSKULOSKELETAL: Denies pain, admits bilateral lower extremity swelling. INTEGUMENTARY: Denies rash, denies eczema. NEUROLOGICAL: Denies recent memory loss, no recent seizure activity. PSYCHIATRIC: Denies anxiety, denies depression. HEMATOLOGIC/LYMPHATIC: Denies anemia, denies enlarged lymph node Past Medical History Past Medical History: No Reported History Additional Past Medical History / Comment(s): Right Superficial Femoral Artery Occlusion (2023) History of Any Multi-Drug Resistant Organisms: None Reported Past Surgical History: Orthopedic Surgery, Tonsillectomy Additional Past Surgical History / Comment(s): Tonsillectomy (Childhood), Back surgery 2000, tooth abscess surgery 2014, Balloon Angiogram to Right Superficial Femoral Artery (2023) Past Anesthesia/Blood Transfusion Reactions: No Reported Reaction Past Psychological History: No Psychological Hx Reported Smoking Status: Former smoker Past Alcohol Use History: None Reported Additional Past Alcohol Use History / Comment(s): Hasnt had Alcohol since January of 2019. Past Drug Use History: Marijuana Additional Drug Use History / Comment(s): Patient smoked 1-2 Packs of Cigerettes for 50 years and recently quit in 2023. Patient reports history of occasional marijuana use but hasnt smoked since 2023. - Past Family History Father Family Medical History: No Reported History Additional Family Medical History / Comment(s): at age 90 Mother Family Medical History: Diabetes Mellitus Additional Family Medical History / Comment(s): at age 85 Medications and Allergies Home Medications Medication Instructions Recorded Confirmed Type Apixaban [Eliquis] 5 mg PO BID #60 tab 08/07/23 09/12/23 Rx Aspirin 81 mg PO DAILY #30 tab 08/07/23 09/12/23 Rx Cholecalciferol [Vitamin D3 (25 25 mcg PO DAILY 09/12/23 09/12/23 History Mcg = 1000 Iu)] Glucosam/Bret-Msm1/C/Chandan/Bosw 1 tab PO DAILY 09/12/23 09/12/23 History [Glucosamine-Chondroitin Tablet] metFORMIN HCL 500 mg PO DAILY 09/12/23 09/12/23 History Allergies Allergy/AdvReac Type Severity Reaction Status Date / Time atorvastatin [From Lipitor] AdvReac Muscle Verified 09/12/23 23:04 weakness Physical Exam Vitals: Vital Signs Temp Pulse Resp BP Pulse Ox 09/13/23 00:20 107 H 18 149/86 90 L 09/13/23 00:10 106 H 15 152/90 94 L 09/13/23 00:00 103 H 21 96 09/12/23 23:50 105 H 17 146/77 92 L 09/12/23 23:40 109 H 21 09/12/23 23:30 95 15 93 L 09/12/23 23:20 97.5 F L 114 H 17 142/65 97 09/12/23 22:39 97.7 F 90 16 138/74 100 09/12/23 22:36 97.5 F L 09/12/23 22:32 18 09/12/23 22:30 98.1 F 85 16 145/73 09/12/23 22:19 97.9 F 90 16 143/78 09/12/23 21:59 77 14 139/71 92 L 09/12/23 19:36 97.7 F 20 147/71 97 Intake and Output 09/12/23 09/12/23 09/13/23 14:59 22:59 06:59 Intake Total 0 1385 Output Total 0 Balance 0 1385 Intake: IV 1075 Sodium Chloride 0.9% 1, 75 000 ml @ 75 mls/hr IV . [id number] [facility] Rx#:[id number] Sodium Chloride 0.9% 1, 1000 000 ml @ 999 mls/hr IV . Q1H1M ST[facility] Rx#:[id number] Blood Product 0 310 Rc As-1 Unit 0 [id number] Output: Urine 0 Other: Weight 72.575 kg GENERAL EXAM: Alert, 67-year-old white male, with generalized pallor, pleasant and talkative, comfortable in no apparent distress. HEAD: Normocephalic and atraumatic EYES: Normal reaction of pupils, equal size. NOSE: Clear with pink turbinates. THROAT: No erythema or exudates. Dry mucous membranes. NECK: No masses, no JVD. CHEST: No chest wall deformity. LUNGS: Equal air entry with no crackles, wheeze, rhonchi or dullness. On 6 L/min nasal cannula. No conversational dyspnea or accessory muscle use.. CVS: S1 and S2 normal with no audible murmur, regular rhythm. No extra heart sounds ABDOMEN: No hepatosplenomegaly, active bowel sounds, no guarding or rigidity. SPINE: No scoliosis or deformity SKIN: No rashes CENTRAL NERVOUS SYSTEM: No focal deficits, tone is normal in all 4 extremities. EXTREMITIES: There is bilateral lower extremity 3-4+ pitting edema. No clubbing, or cyanosis. Nailbed paler. Peripheral pulses are found with Doppler. Bilateral feet are cold. Results - Laboratory Findings CBC and BMP: 09/12/23 20:23 09/12/23 20:35 PT/INR, D-dimer PT 11.0 sec (10.0-12.5) 09/12/23 20:23 INR 1.0 (<1.2) 09/12/23 20:23 Abnormal lab findings: Abnormal Labs 09/12/23 09/12/23 09/12/23 20:23 20:23 20:35 RBC 1.31 L Hgb 3.3 L* D Hct 11.6 L* MCHC 28.4 L RDW 18.4 H Neutrophils # 7.8 H APTT 16.9 L Sodium 134 L Carbon Dioxide 9 L* BUN 21 H Creatinine 2.11 H Glucose 169 H Plasma Lactic Acid Noah Troponin I Total Protein 5.6 L Crossmatch 09/12/23 09/12/23 09/12/23 20:35 20:35 20:55 RBC Hgb Hct MCHC RDW Neutrophils # APTT Sodium Carbon Dioxide BUN Creatinine Glucose Plasma Lactic Acid Noah 10.5 H* Troponin I 0.099 H* Total Protein Crossmatch See Detail - Diagnostic Findings Chest x-ray: image reviewed Assessment and Plan Assessment: Severe anemia and suspected GI bleed, hemoglobin was 3.3 g/dL on arrival, patient is receiving his first unit of PRBCs. Elevated troponins, consistent with supply/demand mismatch and type II [place] High anion gap metabolic acidosis, secondary to lactic acidosis, improving Acute kidney injury, secondary to hypovolemia and severe anemia History of peripheral arterial disease and right femoral SFA occlusion status post catheter introduced thrombolysis and subsequently percutaneous transluminal balloon angioplasty with drug-coated balloon 6 x 120 of the right superficial femoral artery. He was discharged on Eliquis on 08/07/2023 Bilateral lower extremity edema History of hypertension Former tobacco dependence, quitting reportedly 6 weeks ago. Plan: Patient was admitted to the intensive care unit. His medications, labs, chest x-ray reviewed. He is receiving his first unit of PRBCs out of 4. Please transfuse with blood warmer. Blood pressure is stable despite his severe anemia. No need for vasopressors. No further GI bleeding or hematemesis reported inpatient. Fecal occult was positive. Patient's Eliquis is on hold. A consult to GI services was placed, and Dr. Mejia was made aware. Patient has never received a EGD/colonoscopy in the past. Protonix added for GI prophylaxis. Cardiology were also asked to see this patient regarding his elevated troponins which are likely secondary to his severe anemia. He denies any chest pain. Patient was reportedly scheduled for stress test tomorrow. Would recommend echocardiogram if not done outpatient. Patient's prognosis is guarded. He will be monitored in the intensive care unit. I have personally seen and examined the patient, performed the documentation and the assessment and plan as written. Number of minutes spent on the visit:20 Time with Patient: Greater than 30
[2023-09-13 03:58] LABS: African American GFR (CKD) 35 (>60 ml/min/1.73 sqM); Anion Gap 13 mmol/L; Blood Urea Nitrogen 26 mg/dL (9-20); Calcium 8.2 mg/dL (8.4-10.2); Carbon Dioxide 13 mmol/L (22-30); Chloride 108 mmol/L (98-107); Glucose 85 mg/dL (74-99); Non-African American GFR(CKD) 30 (>60 ml/min/1.73 sqM); Potassium 5.1 mmol/L (3.5-5.1); Sodium 134 mmol/L (137-145)
[2023-09-13 07:02] LABS: Glucose,Whole Blood 81 mg/dL (70-110)
--- NOTE | 2023-09-13 08:00 | P.CRDCN ---
History of Present Illness Consult date: 09/13/23 History of present illness: History of Present Illness: The patient is a 67-year-old male with a prior history of smoking who presented end of July with 6 severe right lower extremity ischemic symptoms and was found to have right lower extremity occlusion with SFA lesion, underwent tPA treatment. During that admission he had episodes of hypertension. He was disch arged home on Eliquis and presents with symptoms of progressive dyspnea, fatigue, very severe and very limiting. He was scheduled to undergo an outpatient MPI today but because of his symptoms came into the emergency room and was noted to have a hemoglobin of 3.3. He noted the change in the color of his stool. Patient has been having some peripheral edema but his lower extremities discomfort has improved. He denies any clear chest discomfort, no PND or orthopnea. He feels dizzy and weak but has no arrhythmia. He has no prior documented history of malignant arrhythmia. In the emergency room his troponin was mildly elevated. He has received transfusion and is feeling slightly better. He has stopped his statin because he felt myalgia from it. He has a remote history of alcohol intake but stopped many years ago. He has no history of ischemic heart disease or heart failure. He has a history of diabetes. He was hypertensive during last admission but was not discharged home on antihypertensive treatment. Medications: Eliquis 5 mg twice a day, metformin Review of Systems: Respiratory: He has dyspnea on exertion, and wheezing GI: No nausea or vomiting . No history of peptic ulcer disease. Change in the color of his stool to dark. : No hematuria or dysuria. Nervous System: No stroke or seizure. Physical Examination: 67-year-old male, alert oriented no apparent distress,Blood pressure 133/90, Heart rate 80 Head: Normocephalic. Eyes: Sclerae nonicteric. Neck: Good carotid upstroke, no bruit, no jugular venous distention. Lungs: Clear to auscultation. Heart: Regular rate and rhythm, S1-S2, no S3, no rub. Holosystolic murmur at the apex. Abdomen: Soft nontender, positive bowel sounds no organomegaly. Extremities: +1 edema, intact distal pulses. Extremities warm Labs: Hemoglobin 3.3 on admission, BUN 21, creatinine 2.11. Heme positive stool. Troponin 0.099, 0.912, 1.98. Chest x-ray with no acute infiltrate EKG: Sinus mechanism with nonspecific ST-T wave changes in the inferolateral leads, cannot exclude ischemia. Impression: 1. Severe anemia with GI bleeding related to anticoagulation 2. Troponin elevation most likely type II myocardial infarction in the setting of severe anemia. The patient is high risk to have obstructive CAD 3. Status post recent tPA and balloon angioplasty of the right SFA 4. Prior history of smoking 5. Acute renal injury Plan: 1. Obtain an echocardiogram with Doppler 2. Transfusion as planned 3. The patient will require GI workup 4. Once stable cardiac workup will be needed 5. Depending on his progress further recommendations will be made, thank you for this consult we will follow with you Past Medical History Past Medical History: No Reported History Additional Past Medical History / Comment(s): Right Superficial Femoral Artery Occlusion (2023) History of Any Multi-Drug Resistant Organisms: None Reported Past Surgical History: Orthopedic Surgery, Tonsillectomy Additional Past Surgical History / Comment(s): Tonsillectomy (Childhood), Back surgery 2000, tooth abscess surgery 2014, Balloon Angiogram to Right Superficial Femoral Artery (2023) Past Anesthesia/Blood Transfusion Reactions: No Reported Reaction Past Psychological History: No Psychological Hx Reported Smoking Status: Former smoker Past Alcohol Use History: None Reported Additional Past Alcohol Use History / Comment(s): Hasnt had Alcohol since January of 2019. Past Drug Use History: Marijuana Additional Drug Use History / Comment(s): Patient smoked 1-2 Packs of Cigerettes for 50 years and recently quit in 2023. Patient reports history of occasional marijuana use but hasnt smoked since 2023. - Past Family History Father Family Medical History: No Reported History Additional Family Medical History / Comment(s): at age 90 Mother Family Medical History: Diabetes Mellitus Additional Family Medical History / Comment(s): at age 85 Medications and Allergies Home Medications Medication Instructions Recorded Confirmed Type Apixaban [Eliquis] 5 mg PO BID #60 tab 08/07/23 09/12/23 Rx Aspirin 81 mg PO DAILY #30 tab 08/07/23 09/12/23 Rx Cholecalciferol [Vitamin D3 (25 25 mcg PO DAILY 09/12/23 09/12/23 History Mcg = 1000 Iu)] Glucosam/Bret-Msm1/C/Chandan/Bosw 1 tab PO DAILY 09/12/23 09/12/23 History [Glucosamine-Chondroitin Tablet] metFORMIN HCL 500 mg PO DAILY 09/12/23 09/12/23 History Allergies Allergy/AdvReac Type Severity Reaction Status Date / Time atorvastatin [From Lipitor] AdvReac Muscle Verified 09/12/23 23:04 weakness Physical Exam Vitals: Vital Signs Temp Pulse Pulse Resp BP Pulse Ox FiO2 09/13/23 07:29 98.5 F 87 17 133/90 95 09/13/23 07:09 97.8 F 92 19 157/82 96 09/13/23 07:00 87 22 130/89 94 L 09/13/23 06:49 87 18 133/82 93 L 09/13/23 06:00 87 22 149/87 92 L 09/13/23 05:00 88 13 132/84 96 09/13/23 04:25 87 14 132/84 96 09/13/23 04:05 98.1 F 89 13 132/85 96 09/13/23 04:00 98.1 F 90 90 13 127/81 96 3 09/13/23 03:56 97.8 F 92 15 127/81 96 09/13/23 03:00 95 14 128/72 95 09/13/23 02:04 97.9 F 93 12 128/72 95 09/13/23 02:00 90 13 135/79 97 09/13/23 01:44 97.8 F 96 20 135/79 97 09/13/23 01:15 96 13 137/47 09/13/23 01:10 97.5 F L 93 14 147/77 96 4 09/13/23 01:00 98 13 145/94 96 09/13/23 00:20 107 H 18 149/86 90 L 09/13/23 00:10 106 H 15 152/90 94 L 09/13/23 00:00 103 H 104 H 14 96 09/12/23 23:50 105 H 17 146/77 92 L 09/12/23 23:40 109 H 21 09/12/23 23:30 95 15 93 L 09/12/23 23:20 97.5 F L 114 H 17 142/65 97 09/12/23 22:39 97.7 F 90 16 138/74 100 09/12/23 22:36 97.5 F L 09/12/23 22:32 18 09/12/23 22:30 98.1 F 85 16 145/73 09/12/23 22:19 97.9 F 90 16 143/78 09/12/23 21:59 77 14 139/71 92 L 09/12/23 19:36 97.7 F 20 147/71 97 Intake and Output 09/12/23 09/13/23 09/13/23 22:59 06:59 14:59 Intake Total 0 2069 75 Output Total 20 150 Balance 0 2049 - Intake: IV 1450 75 Sodium Chloride 0.9% 1, 450 75 000 ml @ 75 mls/hr IV . [id number] [id number] Rx#:[id number] Sodium Chloride 0.9% 1, 1000 000 ml @ 999 mls/hr IV . Q1H1M STA Rx#:[id number] Blood Product 0 620 Rc As-1 Unit 0 310 [id number] Rc As-1 Unit 310 [id number] Rc Pheresis 2 As3 Unit 0 [id number] Rc Pheresis As-3 Unit 0 [id number] Output: Urine 20 150 Other: Voiding Method External Catheter Weight 72.575 kg 75.9 kg Results 09/12/23 20:23 09/13/23 03:35 Cardiac Enzymes 09/12/23 09/12/23 09/13/23 Range/Units 20:35 20:35 00:03 AST 30 (17-59) U/L Troponin I 0.099 H* 0.912 H* (0.000-0.034) ng/mL 09/13/23 Range/Units 03:35 AST (17-59) U/L Troponin I 1.980 H* (0.000-0.034) ng/mL Coagulation 09/12/23 Range/Units 20:23 PT 11.0 (10.0-12.5) sec APTT 16.9 L (22.0-30.0) sec CBC 09/12/23 Range/Units 20:23 WBC 9.9 (3.8-10.6) k/uL RBC 1.31 L (4.30-5.90) m/uL Hgb 3.3 L* D (13.0-17.5) gm/dL Hct 11.6 L* (39.0-53.0) % Plt Count 414 (150-450) k/uL Comprehensive Metabolic Panel 09/12/23 09/13/23 Range/Units 20:35 03:35 Sodium 134 L 134 L (137-145) mmol/L Potassium 4.7 5.1 (3.5-5.1) mmol/L Chloride 103 108 H (98-107) mmol/L Carbon Dioxide 9 L* 13 L (22-30) mmol/L BUN 21 H 26 H (9-20) mg/dL Creatinine 2.11 H 2.21 H (0.66-1.25) mg/dL Glucose 169 H 85 (74-99) mg/dL Calcium 8.5 8.2 L (8.4-10.2) mg/dL AST 30 (17-59) U/L ALT 33 (4-49) U/L Alkaline Phosphatase 111 (38-126) U/L Total Protein 5.6 L (6.3-8.2) g/dL Albumin 3.5 (3.5-5.0) g/dL Current Medications Generic Name Dose Route Start Last Admin Trade Name Freq PRN Reason Stop Dose Admin Acetaminophen 650 mg 09/12/23 22:05 Acetaminophen Tab 325 Mg Tab PO Q4HR PRN Fever and/or Mild Pain Sodium Chloride 1,000 mls @ 75 mls/hr 09/12/23 22:15 09/13/23 00:10 Saline 0.9% IV 75 mls/hr .[id number] [facility] Administration Miscellaneous Information 1 each 09/12/23 22:33 Potassium Replacement Protocol 1 Each [facility] MISCELLANE DAILY PRN Per Protocol Miscellaneous Information 1 each 09/12/23 22:33 Magnesium Replacement Protocol 1 Each [facility] MISCELLANE DAILY PRN Per Protocol Protocol Naloxone HCl 0.2 mg 09/12/23 22:05 Naloxone 0.4 Mg/Ml 1 Ml Vial IV Q2M PRN Opioid Reversal Pantoprazole Sodium 40 mg 09/13/23 09:00 Pantoprazole 40 Mg/10 Ml Vial IV BID [facility] Intake and Output 09/12/23 09/13/23 09/13/23 22:59 06:59 14:59 Intake Total 0 2070 75 Output Total 20 150 Balance 0 0 -75 Intake: IV 1450 75 Sodium Chloride 0.9% 1, 450 75 000 ml @ 75 mls/hr IV . [id number] [facility] Rx#:[id number] Sodium Chloride 0.9% 1, 1000 000 ml @ 999 mls/hr IV . Q1H1M [facility] Rx#:[id number] Blood Product 0 620 Rc As-1 Unit 0 310 [id number] Rc As-1 Unit 310 [id number] Rc Pheresis 2 As3 Unit 0 [id number] Rc Pheresis As-3 Unit 0 [id number] Output: Urine 20 150 Other: Voiding Method External Catheter Weight 72.575 kg 75.9 kg 09/12/23 20:23 09/13/23 03:35
[2023-09-13] MEDS: PANTOPRAZOLE 40 MG/10 ML VIAL IV SCH (08:48)
[2023-09-13] MEDS ORDERED: PANTOPRAZOLE 40 MG/10 ML VIAL IV SCH (09:00)
[2023-09-13] MEDS ORDERED: DEXTROSE 50% SYRINGE 50 ML IVP PRN ×2 (10:39)
--- NOTE | 2023-09-13 10:59 | P.GSCN ---
History of Present Illness Consult date: 09/13/23 Reason for Consult: Status post percutaneous transluminal balloon angioplasty Requesting physician: Britton Fine History of present illness: This is a pleasant 67-year-old male with a history of back surgery, chronic paresthesia, numbness in his feet the morning, history of nicotine abuse and recent admission for occlusion of the right SFA who underwent thrombolysis as well as angioplasty in the beginning of August with good revascularization. Patient at that time was started on Eliquis 5 mg twice daily, atorvastatin 40 mg at bedtime and aspirin 81 mg daily. Patient had been taking his medications as prescribed. States he also was recently put on Chantix for smoking cessation. Patient presented to the emergency department with complaints of shortness of breath, weakness and fatigue. Patient states over the last couple weeks he has had little energy, he is becoming short of breath, and decreased appetite due to weakness. Patient was noted to be severely anemic on admission with a hemoglobin of 3.3. He is status post 4 units of PRBC transfusion. He states he had been noticing dark black tarry stools. He has no history of GI bleed. No history of peptic ulcer disease and has never undergone endoscopy or colonoscopy. He denies abdominal pain, nausea or vomiting. He denies any bleeding from previous access sites. Lower extremities warm to the touch, no pain. Review of Systems A 14 point review systems was completed all pertinent positives and negatives as stated in the HPI. Past Medical History Past Medical History: No Reported History Additional Past Medical History / Comment(s): Right Superficial Femoral Artery Occlusion (2023) History of Any Multi-Drug Resistant Organisms: None Reported Past Surgical History: Orthopedic Surgery, Tonsillectomy Additional Past Surgical History / Comment(s): Tonsillectomy (Childhood), Back surgery 2000, tooth abscess surgery 2014, Balloon Angiogram to Right Superficial Femoral Artery (2023) Past Anesthesia/Blood Transfusion Reactions: No Reported Reaction Past Psychological History: No Psychological Hx Reported Smoking Status: Former smoker Past Alcohol Use History: None Reported Additional Past Alcohol Use History / Comment(s): Hasnt had Alcohol since January of 2019. Past Drug Use History: Marijuana Additional Drug Use History / Comment(s): Patient smoked 1-2 Packs of Cigerettes for 50 years and recently quit in 2023. Patient reports history of occasional marijuana use but hasnt smoked since 2023. - Past Family History Father Family Medical History: No Reported History Additional Family Medical History / Comment(s): at age 90 Mother Family Medical History: Diabetes Mellitus Additional Family Medical History / Comment(s): at age 85 Medications and Allergies Home Medications Medication Instructions Recorded Confirmed Type Apixaban [Eliquis] 5 mg PO BID #60 tab 08/07/23 09/12/23 Rx Aspirin 81 mg PO DAILY #30 tab 08/07/23 09/12/23 Rx Cholecalciferol [Vitamin D3 (25 25 mcg PO DAILY 09/12/23 09/12/23 History Mcg = 1000 Iu)] Glucosam/Bret-Msm1/C/Chandan/Bosw 1 tab PO DAILY 09/12/23 09/12/23 History [Glucosamine-Chondroitin Tablet] metFORMIN HCL 500 mg PO DAILY 09/12/23 09/12/23 History Allergies Allergy/AdvReac Type Severity Reaction Status Date / Time atorvastatin [From Lipitor] AdvReac Muscle Verified 09/12/23 23:04 weakness Surgical - Exam Vital Signs Temp Resp BP Pulse Ox 97.7 F 20 147/71 97 09/12/23 19:36 09/12/23 19:36 09/12/23 19:36 09/12/23 19:36 General appearance: The patient is alert, oriented, appears in no acute distress. HET: Head is normocephalic and atraumatic. Neck: Supple. Heart: Regular. Lungs: Equal expansion, normal respiratory effort. Abdomen: Soft, nontender, nondistended. Extremities: Normal skin color and turgor. Bilateral femoral and DP pulses present. Bilateral lower extremities warm to the touch. No edema. Left groin previous access site well-healed, no hematoma noted. Neurological: No focal deficits. Alert and oriented x 3. Results - Labs 09/12/23 20:23 09/13/23 03:35 Abnormal Lab Results - Last 24 Hours (Table) 09/12/23 09/12/23 09/12/23 Range/Units 20:23 20:23 20:35 RBC 1.31 L (4.30-5.90) m/uL Hgb 3.3 L* D (13.0-17.5) gm/dL Hct 11.6 L* (39.0-53.0) % MCHC 28.4 L (31.0-37.0) g/dL RDW 18.4 H (11.5-15.5) % Neutrophils # 7.8 H (1.3-7.7) k/uL APTT 16.9 L (22.0-30.0) sec Sodium 134 L (137-145) mmol/L Chloride (98-107) mmol/L Carbon Dioxide 9 L* (22-30) mmol/L BUN 21 H (9-20) mg/dL Creatinine 2.11 H (0.66-1.25) mg/dL Glucose 169 H (74-99) mg/dL Plasma Lactic Acid Noah (0.7-2.0) mmol/L Calcium (8.4-10.2) mg/dL Troponin I (0.000-0.034) ng/mL Total Protein 5.6 L (6.3-8.2) g/dL Crossmatch 09/12/23 09/12/23 09/12/23 Range/Units 20:35 20:35 20:55 RBC (4.30-5.90) m/uL Hgb (13.0-17.5) gm/dL Hct (39.0-53.0) % MCHC (31.0-37.0) g/dL RDW (11.5-15.5) % Neutrophils # (1.3-7.7) k/uL APTT (22.0-30.0) sec Sodium (137-145) mmol/L Chloride (98-107) mmol/L Carbon Dioxide (22-30) mmol/L BUN (9-20) mg/dL Creatinine (0.66-1.25) mg/dL Glucose (74-99) mg/dL Plasma Lactic Acid Noah 10.5 H* (0.7-2.0) mmol/L Calcium (8.4-10.2) mg/dL Troponin I 0.099 H* (0.000-0.034) ng/mL Total Protein (6.3-8.2) g/dL Crossmatch See Detail 09/13/23 09/13/23 09/13/23 Range/Units 00:03 00:03 03:35 RBC (4.30-5.90) m/uL Hgb (13.0-17.5) gm/dL Hct (39.0-53.0) % MCHC (31.0-37.0) g/dL RDW (11.5-15.5) % Neutrophils # (1.3-7.7) k/uL APTT (22.0-30.0) sec Sodium (137-145) mmol/L Chloride (98-107) mmol/L Carbon Dioxide (22-30) mmol/L BUN (9-20) mg/dL Creatinine (0.66-1.25) mg/dL Glucose (74-99) mg/dL Plasma Lactic Acid Noah 3.4 H* (0.7-2.0) mmol/L Calcium (8.4-10.2) mg/dL Troponin I 0.912 H* 1.980 H* (0.000-0.034) ng/mL Total Protein (6.3-8.2) g/dL Crossmatch 09/13/23 Range/Units 03:35 RBC (4.30-5.90) m/uL Hgb (13.0-17.5) gm/dL Hct (39.0-53.0) % MCHC (31.0-37.0) g/dL RDW (11.5-15.5) % Neutrophils # (1.3-7.7) k/uL APTT (22.0-30.0) sec Sodium 134 L (137-145) mmol/L Chloride 108 H (98-107) mmol/L Carbon Dioxide 13 L (22-30) mmol/L BUN 26 H (9-20) mg/dL Creatinine 2.21 H (0.66-1.25) mg/dL Glucose (74-99) mg/dL Plasma Lactic Acid Noah (0.7-2.0) mmol/L Calcium 8.2 L (8.4-10.2) mg/dL Troponin I (0.000-0.034) ng/mL Total Protein (6.3-8.2) g/dL Crossmatch Diabetes panel 09/12/23 09/13/23 Range/Units 20:35 03:35 Sodium 134 L 134 L (137-145) mmol/L Potassium 4.7 5.1 (3.5-5.1) mmol/L Chloride 103 108 H (98-107) mmol/L Carbon Dioxide 9 L* 13 L (22-30) mmol/L BUN 21 H 26 H (9-20) mg/dL Creatinine 2.11 H 2.21 H (0.66-1.25) mg/dL Glucose 169 H 85 (74-99) mg/dL Calcium 8.5 8.2 L (8.4-10.2) mg/dL AST 30 (17-59) U/L ALT 33 (4-49) U/L Alkaline Phosphatase 111 (38-126) U/L Total Protein 5.6 L (6.3-8.2) g/dL Albumin 3.5 (3.5-5.0) g/dL Calcium panel 09/12/23 09/13/23 Range/Units 20:35 03:35 Calcium 8.5 8.2 L (8.4-10.2) mg/dL Albumin 3.5 (3.5-5.0) g/dL Pituitary panel 09/12/23 09/13/23 Range/Units 20:35 03:35 Sodium 134 L 134 L (137-145) mmol/L Potassium 4.7 5.1 (3.5-5.1) mmol/L Chloride 103 108 H (98-107) mmol/L Carbon Dioxide 9 L* 13 L (22-30) mmol/L BUN 21 H 26 H (9-20) mg/dL Creatinine 2.11 H 2.21 H (0.66-1.25) mg/dL Glucose 169 H 85 (74-99) mg/dL Calcium 8.5 8.2 L (8.4-10.2) mg/dL Adrenal panel 09/12/23 09/13/23 Range/Units 20:35 03:35 Sodium 134 L 134 L (137-145) mmol/L Potassium 4.7 5.1 (3.5-5.1) mmol/L Chloride 103 108 H (98-107) mmol/L Carbon Dioxide 9 L* 13 L (22-30) mmol/L BUN 21 H 26 H (9-20) mg/dL Creatinine 2.11 H 2.21 H (0.66-1.25) mg/dL Glucose 169 H 85 (74-99) mg/dL Calcium 8.5 8.2 L (8.4-10.2) mg/dL Total Bilirubin 0.3 (0.2-1.3) mg/dL AST 30 (17-59) U/L ALT 33 (4-49) U/L Alkaline Phosphatase 111 (38-126) U/L Total Protein 5.6 L (6.3-8.2) g/dL Albumin 3.5 (3.5-5.0) g/dL Assessment and Plan Assessment: 1. Severe symptomatic anemia 2. Previous right SFA occlusion status post thrombolysis and angioplasty Plan: 1. Continue symptomatic and supportive care 2. Agree with blood transfusion 3. Agree to hold anticoagulation for now 4. Recommend GI workup for acute blood loss anemia 5. There is no indication for any vascular surgical intervention 6. Further recommendations forthcoming for future anticoagulation based on endoscopic findings Thank you for this consultation. The impression and plan of care has been dictated as directed. I performed a history and examination of this patient, discussed the same with the dictator. I agree with the dictator's note ,documented as a scribe. Any additional findings or plans will be noted.
--- NOTE | 2023-09-13 11:11 | P.CONS ---
History of Present Illness - Reason for Consult Consult date: 09/13/23 Anemia Requesting physician: Britton Fine - Chief Complaint Shortness of breath, weakness - History of Present Illness This is a pleasant 67-year-old male with a history of back surgery, chronic paresthesia, numbness in his feet the morning, history of nicotine abuse and recent admission for occlusion of the right SFA who underwent thrombolysis as well as angioplasty in the beginning of August with good revascularization. Patient at that time was started on Eliquis 5 mg twice daily, atorvastatin 40 mg at bedtime and aspirin 81 mg daily. Patient had been taking his medications as prescribed. He denies any NSAID use. States he also was recently put on Chantix for smoking cessation. Patient presented to the emergency department with complaints of shortness of breath, weakness and fatigue. Patient states over the last couple weeks he has had little energy, he is becoming short of breath, and decreased appetite due to weakness. Patient was noted to be s everely anemic on admission with a hemoglobin of 3.3. He was also noted to have EKG changes and elevated troponins. Cardiology is following and recommending GI workup prior to any further cardiac investigation. Patient is scheduled for echocardiogram. He is status post 4 units of PRBC transfusion. He states he had been noticing dark black tarry stools. He has no history of GI bleed. No history of peptic ulcer disease and has never undergone endoscopy or colonoscopy. He denies abdominal pain, nausea or vomiting. He denies any bleeding from previous access sites. Lower extremities warm to the touch, no pain. Review of Systems REVIEW OF SYSTEMS: CARDIOPULMONARY: No chest pain or shortness of breath. Gastrointestinal: No abdominal pain. No hematemesis, coffee-ground emesis. No rectal bleeding. Reports black, tarry stool over the last couple weeks.. GENITOURINARY: No dysuria or hematuria. MUSCULOSKELETAL: Reports normal range of motion. Chronic back pain. SKIN: No rashes. No jaundice. ENDOCRINE: No chills, fevers. No excessive weight gain or loss. No polydipsia or polyuria. PSYCHIATRIC: Unremarkable. NEUROLOGY: No change in mental status. Denies dizziness, headache. ENT: Vision unremarkable. CONSTITUTIONAL: No recent weight loss. No fever, chills, night sweats. Past Medical History Past Medical History: No Reported History Additional Past Medical History / Comment(s): Right Superficial Femoral Artery Occlusion (2023) History of Any Multi-Drug Resistant Organisms: None Reported Past Surgical History: Orthopedic Surgery, Tonsillectomy Additional Past Surgical History / Comment(s): Tonsillectomy (Childhood), Back surgery 2000, tooth abscess surgery 2014, Balloon Angiogram to Right Superficial Femoral Artery (2023) Past Anesthesia/Blood Transfusion Reactions: No Reported Reaction Past Psychological History: No Psychological Hx Reported Smoking Status: Former smoker Past Alcohol Use History: None Reported Additional Past Alcohol Use History / Comment(s): Hasnt had Alcohol since January of 2019. Past Drug Use History: Marijuana Additional Drug Use History / Comment(s): Patient smoked 1-2 Packs of Cigerettes for 50 years and recently quit in 2023. Patient reports history of occasional marijuana use but hasnt smoked since 2023. - Past Family History Father Family Medical History: No Reported History Additional Family Medical History / Comment(s): at age 90 Mother Family Medical History: Diabetes Mellitus Additional Family Medical History / Comment(s): at age 85 Medications and Allergies Home Medications Medication Instructions Recorded Confirmed Type Apixaban [Eliquis] 5 mg PO BID #60 tab 08/07/23 09/12/23 Rx Aspirin 81 mg PO DAILY #30 tab 08/07/23 09/12/23 Rx Cholecalciferol [Vitamin D3 (25 25 mcg PO DAILY 09/12/23 09/12/23 History Mcg = 1000 Iu)] Glucosam/Bret-Msm1/C/Chandan/Bosw 1 tab PO DAILY 09/12/23 09/12/23 History [Glucosamine-Chondroitin Tablet] metFORMIN HCL 500 mg PO DAILY 09/12/23 09/12/23 History Allergies Allergy/AdvReac Type Severity Reaction Status Date / Time atorvastatin [From Lipitor] AdvReac Muscle Verified 09/12/23 23:04 weakness Physical Exam Vitals: Vital Signs Temp Pulse Pulse Resp BP Pulse Ox FiO2 09/13/23 08:24 94 L 09/13/23 07:29 98.5 F 87 17 133/90 95 09/13/23 07:09 97.8 F 92 19 157/82 96 09/13/23 07:00 87 22 130/89 94 L 09/13/23 06:49 87 18 133/82 93 L 09/13/23 06:00 87 22 149/87 92 L 09/13/23 05:00 88 13 132/84 96 09/13/23 04:25 87 14 132/84 96 09/13/23 04:05 98.1 F 89 13 132/85 96 09/13/23 04:00 98.1 F 90 90 13 127/81 96 3 09/13/23 03:56 97.8 F 92 15 127/81 96 09/13/23 03:00 95 14 128/72 95 09/13/23 02:04 97.9 F 93 12 128/72 95 09/13/23 02:00 90 13 135/79 97 09/13/23 01:44 97.8 F 96 20 135/79 97 09/13/23 01:15 96 13 137/47 09/13/23 01:10 97.5 F L 93 14 147/77 96 4 09/13/23 01:00 98 13 145/94 96 09/13/23 00:20 107 H 18 149/86 90 L 09/13/23 00:10 106 H 15 152/90 94 L 09/13/23 00:00 103 H 104 H 14 96 09/12/23 23:50 105 H 17 146/77 92 L 09/12/23 23:40 109 H 21 09/12/23 23:30 95 15 93 L 09/12/23 23:20 97.5 F L 114 H 17 142/65 97 09/12/23 22:39 97.7 F 90 16 138/74 100 09/12/23 22:36 97.5 F L 09/12/23 22:32 18 09/12/23 22:30 98.1 F 85 16 145/73 09/12/23 22:19 97.9 F 90 16 143/78 09/12/23 21:59 77 14 139/71 92 L 09/12/23 19:36 97.7 F 20 147/71 97 Intake and Output 09/12/23 09/13/23 09/13/23 22:59 06:59 14:59 Intake Total 0 2069 75 Output Total 20 150 Balance 0 2049 - Intake: IV 1450 75 Sodium Chloride 0.9% 1, 450 75 000 ml @ 75 mls/hr IV . [id number] [facility] Rx#:[id number] Sodium Chloride 0.9% 1, 1000 000 ml @ 999 mls/hr IV . Q1H1M [facility] Rx#:[id number] Blood Product 0 620 Rc As-1 Unit 0 310 [id number] Rc As-1 Unit 310 [id number] Rc Pheresis 2 As3 Unit 0 [id number] Rc Pheresis As-3 Unit 0 [id number] Output: Urine 20 150 Other: Voiding Method External Catheter Weight 72.575 kg 75.9 kg General appearance: The patient is alert, oriented, appears in no acute distress. HET: Head is normocephalic and atraumatic. Conjunctiva pink. Sclera anicteric. Neck: Supple without lymphadenopathy. Trachea midline. Heart: Regular. Lungs: Equal expansion, normal respiratory effort. Abdomen: Soft, nontender, nondistended with bowel sounds. No guarding or rigidity. Skin: No rashes. No jaundice. Extremities: Normal skin color and turgor. No pedal edema. Neurological: No focal deficits. Alert and oriented x3. Results CBC & Chem 7: 09/12/23 20:23 09/13/23 03:35 Labs: Abnormal Lab Results - Last 24 Hours (Table) 09/12/23 09/12/23 09/12/23 Range/Units 20:23 20:23 20:35 RBC 1.31 L (4.30-5.90) m/uL Hgb 3.3 L* D (13.0-17.5) gm/dL Hct 11.6 L* (39.0-53.0) % MCHC 28.4 L (31.0-37.0) g/dL RDW 18.4 H (11.5-15.5) % Neutrophils # 7.8 H (1.3-7.7) k/uL APTT 16.9 L (22.0-30.0) sec Sodium 134 L (137-145) mmol/L Chloride (98-107) mmol/L Carbon Dioxide 9 L* (22-30) mmol/L BUN 21 H (9-20) mg/dL Creatinine 2.11 H (0.66-1.25) mg/dL Glucose 169 H (74-99) mg/dL Plasma Lactic Acid Noah (0.7-2.0) mmol/L Calcium (8.4-10.2) mg/dL Troponin I (0.000-0.034) ng/mL Total Protein 5.6 L (6.3-8.2) g/dL Crossmatch 09/12/23 09/12/23 09/12/23 Range/Units 20:35 20:35 20:55 RBC (4.30-5.90) m/uL Hgb (13.0-17.5) gm/dL Hct (39.0-53.0) % MCHC (31.0-37.0) g/dL RDW (11.5-15.5) % Neutrophils # (1.3-7.7) k/uL APTT (22.0-30.0) sec Sodium (137-145) mmol/L Chloride (98-107) mmol/L Carbon Dioxide (22-30) mmol/L BUN (9-20) mg/dL Creatinine (0.66-1.25) mg/dL Glucose (74-99) mg/dL Plasma Lactic Acid Noah 10.5 H* (0.7-2.0) mmol/L Calcium (8.4-10.2) mg/dL Troponin I 0.099 H* (0.000-0.034) ng/mL Total Protein (6.3-8.2) g/dL Crossmatch See Detail 09/13/23 09/13/23 09/13/23 Range/Units 00:03 00:03 03:35 RBC (4.30-5.90) m/uL Hgb (13.0-17.5) gm/dL Hct (39.0-53.0) % MCHC (31.0-37.0) g/dL RDW (11.5-15.5) % Neutrophils # (1.3-7.7) k/uL APTT (22.0-30.0) sec Sodium (137-145) mmol/L Chloride (98-107) mmol/L Carbon Dioxide (22-30) mmol/L BUN (9-20) mg/dL Creatinine (0.66-1.25) mg/dL Glucose (74-99) mg/dL Plasma Lactic Acid Noah 3.4 H* (0.7-2.0) mmol/L Calcium (8.4-10.2) mg/dL Troponin I 0.912 H* 1.980 H* (0.000-0.034) ng/mL Total Protein (6.3-8.2) g/dL Crossmatch 09/13/23 Range/Units 03:35 RBC (4.30-5.90) m/uL Hgb (13.0-17.5) gm/dL Hct (39.0-53.0) % MCHC (31.0-37.0) g/dL RDW (11.5-15.5) % Neutrophils # (1.3-7.7) k/uL APTT (22.0-30.0) sec Sodium 134 L (137-145) mmol/L Chloride 108 H (98-107) mmol/L Carbon Dioxide 13 L (22-30) mmol/L BUN 26 H (9-20) mg/dL Creatinine 2.21 H (0.66-1.25) mg/dL Glucose (74-99) mg/dL Plasma Lactic Acid Noah (0.7-2.0) mmol/L Calcium 8.2 L (8.4-10.2) mg/dL Troponin I (0.000-0.034) ng/mL Total Protein (6.3-8.2) g/dL Crossmatch Assessment and Plan (1) Symptomatic anemia Narrative/Plan: 67-year-old male with recent history of acute ischemia of right lower extremity status post revascularization of the right superficial femoral artery and was started on Eliquis 5 mg twice daily. He has been on that a little over a month and approximately 2 weeks ago started feeling weak, and has been noticing black tarry stools. No previous history of GI bleed, no history of endoscopy or colonoscopy in the past. Likely dealing with GI source of acute blood loss anemia. He was found to have a hemoglobin of 3.3, status post 4 units of blood. Possible etiologies include peptic ulcer disease, AVM, gastritis, esophagitis, or other possible etiologies. Recommend proceeding with EGD and colonoscopy, possible small bowel capsule endoscopy if EGD and colonoscopy negative. Patient agreeable. Will plan for tomorrow. Continue with workup from cardiology. Current Visit: Yes Status: Acute Code(s): D64.9 - ANEMIA, UNSPECIFIED SNOMED Code(s): 260704126 (2) Abnormal EKG Current Visit: Yes Status: Acute Code(s): R94.31 - ABNORMAL ELECTROCARDIOGRAM [ECG] [EKG] SNOMED Code(s): 098766811 (3) Elevated troponin Current Visit: Yes Status: Acute Code(s): R79.89 - OTHER SPECIFIED ABNORMAL FINDINGS OF BLOOD CHEMISTRY SNOMED Code(s): 813785554 Plan: 1. Continue symptomatic and supportive care 2. Agree with blood transfusion 3. Hold anticoagulation 4. Daily CBC, transfuse for hemoglobin less than 7 5. Protonix 40 mg twice daily 6. Replace potassium per protocol 7. Patient may have clear liquid diet, n.p.o. after midnight 8. Bowel prep this evening 9. Plan for EGD and colonoscopy tomorrow 10. Continue with recommendations from cardiology Thank you for this consultation, we will continue to follow. Dr. Fadi Mejia I agree with the dictator's note, documented as a scribe by Ashley Herrera.
--- NOTE | 2023-09-13 11:50 | CA ---
Transthoracic Echo Report Name: Satnam Null Age: 67 Gender: M : 1955 Exam Date: 09/13/2023 09:53 Exam Location: [place] [facility] Ht (in): 70 Wt (lb): 167 Ordering Physician: Donnie Hawkins MD ([id number]) Attending/Referring Phys: [facility] Rosa Worley RDCS Procedure CPT: Indications: [place] Cardiac Hx: Technical Quality: Fair Contrast 1: Total Dose (mL): Contrast 2: Total Dose (mL): MEASUREMENTS (Male / Female) Normal Values 2D ECHO LV Diastolic Diameter PLAX 5.9 cm 4.2 - 5.9 / 3.9 - 5.3 cm LV Systolic Diameter PLAX 4.8 cm IVS Diastolic Thickness 1.0 cm 0.6 - 1.0 / 0.6 - 0.9 cm LVPW Diastolic Thickness 1.0 cm 0.6 - 1.0 / 0.6 - 0.9 cm LV Relative Wall Thickness 0.3 RV Internal Dim ED PLAX 3.0 cm LV Diastolic Volume MOD 4C 74.1 cm??? LV Systolic Volume MOD 4C 47.5 cm??? LV Ejection Fraction MOD 4C 35.9 % LV Cardiac Index MOD 4C 1316.8 cm???/min???m??? LV Diastolic Length 4C 7.3 cm LV Systolic Length 4C 6.6 cm LV Diastolic Volume MOD 2C 81.7 cm??? LV Systolic Volume MOD 2C 48.9 cm??? LV Ejection Fraction MOD 2C 40.1 % LV Cardiac Index MOD 2C 1624.0 cm???/min???m??? LV Diastolic Length 2C 7.3 cm LV Systolic Length 2C 6.8 cm LA Volume 40.2 cm??? 18 - 58 / 22 - 52 cm??? LA Volume Index 20.7 cm???/m??? 16 - 28 cm???/m??? M-MODE Aortic Root Diameter MM 3.3 cm DOPPLER AV Peak Velocity 101.7 cm/s AV Peak Gradient 4.1 mmHg MV E' Velocity 6.5 cm/s TR Peak Velocity 311.4 cm/s TR Peak Gradient 38.8 mmHg Right Ventricular Systolic Press 43.8 mmHg FINDINGS Left Ventricle Left ventricular ejection fraction is estimated at 25-30 %. Left ventricular cavity size normal. Left ventricular wall thickness normal. [place] akinesis. Moderately reduced global left ventricular systolic function. Right Ventricle Normal right ventricular size. Mild pulmonary hypertension. Right Atrium Normal right atrial size. Left Atrium Normal left atrial size. Mitral Valve Structurally normal mitral valve. Mild mitral regurgitation. Aortic Valve Trileaflet aortic valve. No aortic valve stenosis or regurgitation. Tricuspid Valve Structurally normal tricuspid valve. Mild tricuspid regurgitation. Pulmonic Valve Pulmonic valve not well visualized. No pulmonic regurgitation. Pericardium No pericardial effusion. Aorta Normal size aortic root and proximal ascending aorta. CONCLUSIONS Technically difficult study for interpretation Impaired LV systolic function. The ejection fraction is 25-30%. Mid ventricle and apical hypokinesia. Previewed by: Dr. Everton Rogers MD (Electronically Signed) Final Date: 13 September 2023 11:49
[2023-09-13 12:13] LABS: Glucose,Whole Blood 89 mg/dL (70-110)
[2023-09-13 14:33] LABS: Anisocytosis Slight; HCT 25.4 % (39.0-53.0); Hypochromasia Moderate; MCHC 32.8 g/dL (31.0-37.0); MCV 85.3 fL (80.0-100.0); Mean Platelet Volume 7.7; Platelet Count 322 k/uL (150-450); Poikilocytosis Marked; RBC 2.98 m/uL (4.30-5.90); RDW 16.4 % (11.5-15.5); WBC 10.1 k/uL (3.8-10.6)
[2023-09-13 14:47] LABS: HGB 8.3 gm/dL (13.0-17.5)
[2023-09-13] MEDS: INSULIN ASPART (NovoLOG) 100 UNIT/ML VIAL SQ SCH (15:10)
[2023-09-13] MEDS: PEG 3350 (236 GM/BTL) + LYTES 4,000 ML BOTTLE PO ONE (17:20)
[2023-09-13 17:23] LABS: Glucose,Whole Blood 97 mg/dL (70-110)
--- NOTE | 2023-09-13 17:43 | P.HPIM ---
History of Present Illness H&P Date: 09/13/23 Chief Complaint: Weakness, shortness of breath This is a pleasant 67-year-old gentleman recently discharged on 08/07/2023 on Eliquis, statin and aspirin related to acute limb ischemia/occlusion of the right SFA status post TPA catheter placement 08/05 in a patient with medical hi story significant for PAD, hypertension, former extensive nicotine dependence, 1 to 2 packs daily x 50 years-reports he recently quit in July 2023, marijuana use, alcohol use-none since 2018 and multiple other medical issues. Denies prior history of peptic ulcer disease or GI bleed and has never had a EGD/colonoscopy. Reports over the last week , generalized weakness progressed ,accompanied by worsening shortness of breath. Reports he was unable to stand up in the shower yesterday, crawled to the landline phone and called 911. On admission hemoglobin discovered to be 3.3. Patient admits to dark tarry stools, timeframe unsure. Vague historian. Denies nausea vomiting or diarrhea. Denies abdominal pain. Denies hematemesis. Patient did follow-up with PCP August 08, at which time, patient's hemoglobin was 12.3, heart rate 90 with O2 sat on room air 100%. Sodium 134, potassium 5.1, chloride 108 anion gap 13, bicarb 13, BUN 26, creatinine 2.21, glucose 169, lactic acid 10.5-resolved with IV fluid resuscitation ,currently 1.6.EKG reporting nonspecific ST and T wave abnormalities, troponin 0.099, positive stool for occult blood, viral studies negative, afebrile, normal WBC. Receiving fourth unit of packed RBCs currently with no active bleeding at this time. Denies chest pain, palpitations. Maintaining O2 sats in the high 90s on room air. Chest x-ray reporting no acute cardiopulmonary disease/process. Repeat EKG and echo pending. Vital signs stable. Review of Systems ROS Statement: Those systems with pertinent positive or pertinent negative responses have been documented in the HPI. ROS Other: All systems not noted in ROS Statement are negative. Past Medical History Past Medical History: No Reported History Additional Past Medical History / Comment(s): Right Superficial Femoral Artery Occlusion (2023) History of Any Multi-Drug Resistant Organisms: None Reported Past Surgical History: Orthopedic Surgery, Tonsillectomy Additional Past Surgical History / Comment(s): Tonsillectomy (Childhood), Back surgery 2000, tooth abscess surgery 2014, Balloon Angiogram to Right Superficial Femoral Artery (2023) Past Anesthesia/Blood Transfusion Reactions: No Reported Reaction Past Psychological History: No Psychological Hx Reported Smoking Status: Former smoker Past Alcohol Use History: None Reported Additional Past Alcohol Use History / Comment(s): Hasnt had Alcohol since January of 2019. Past Drug Use History: Marijuana Additional Drug Use History / Comment(s): Patient smoked 1-2 Packs of Cigerettes for 50 years and recently quit in 2023. Patient reports history of o ccasional marijuana use but hasnt smoked since 2023. - Past Family History Father Family Medical History: No Reported History Additional Family Medical History / Comment(s): at age 90 Mother Family Medical History: Diabetes Mellitus Additional Family Medical History / Comment(s): at age 85 Medications and Allergies Home Medications Medication Instructions Recorded Confirmed Type Apixaban [Eliquis] 5 mg PO BID #60 tab 08/07/23 09/12/23 Rx Aspirin 81 mg PO DAILY #30 tab 08/07/23 09/12/23 Rx Cholecalciferol [Vitamin D3 (25 25 mcg PO DAILY 09/12/23 09/12/23 History Mcg = 1000 Iu)] Glucosam/Bret-Msm1/C/Chandan/Bosw 1 tab PO DAILY 09/12/23 09/12/23 History [Glucosamine-Chondroitin Tablet] metFORMIN HCL 500 mg PO DAILY 09/12/23 09/12/23 History Allergies Allergy/AdvReac Type Severity Reaction Status Date / Time atorvastatin [From Lipitor] AdvReac Muscle Verified 09/12/23 23:04 weakness Physical Exam Vitals: Vital Signs Temp Pulse Pulse Resp BP Pulse Ox FiO2 09/13/23 09:00 98.1 F 85 16 137/88 96 09/13/23 08:53 98.1 F 81 16 97 09/13/23 08:24 94 L 09/13/23 08:00 83 15 133/90 96 09/13/23 07:29 98.5 F 87 17 133/90 95 09/13/23 07:09 97.8 F 92 19 157/82 96 09/13/23 07:00 87 22 130/89 94 L 09/13/23 06:49 87 18 133/82 93 L 09/13/23 06:00 87 22 149/87 92 L 09/13/23 05:00 88 13 132/84 96 09/13/23 04:25 87 14 132/84 96 09/13/23 04:05 98.1 F 89 13 132/85 96 09/13/23 04:00 98.1 F 90 90 13 127/81 96 3 09/13/23 03:56 97.8 F 92 15 127/81 96 09/13/23 03:00 95 14 128/72 95 09/13/23 02:04 97.9 F 93 12 128/72 95 09/13/23 02:00 90 13 135/79 97 09/13/23 01:44 97.8 F 96 20 135/79 97 09/13/23 01:15 96 13 137/47 09/13/23 01:10 97.5 F L 93 14 147/77 96 4 09/13/23 01:00 98 13 145/94 96 09/13/23 00:20 107 H 18 149/86 90 L 09/13/23 00:10 106 H 15 152/90 94 L 09/13/23 00:00 103 H 104 H 14 96 09/12/23 23:50 105 H 17 146/77 92 L 09/12/23 23:40 109 H 21 09/12/23 23:30 95 15 93 L 09/12/23 23:20 97.5 F L 114 H 17 142/65 97 09/12/23 22:39 97.7 F 90 16 138/74 100 09/12/23 22:36 97.5 F L 09/12/23 22:32 18 09/12/23 22:30 98.1 F 85 16 145/73 09/12/23 22:19 97.9 F 90 16 143/78 09/12/23 21:59 77 14 139/71 92 L 09/12/23 19:36 97.7 F 20 147/71 97 Intake and Output 09/12/23 09/13/23 09/13/23 22:59 06:59 14:59 Intake Total 0 2070 506 Output Total 20 150 Balance 0 2050 356 Intake: IV 1450 225 Sodium Chloride 0.9% 1, 450 225 000 ml @ 75 mls/hr IV . [id number] [facility] Rx#:[id number] Sodium Chloride 0.9% 1, 1000 000 ml @ 999 mls/hr IV . Q1H1M [facility] Rx#:[id number] Blood Product 0 620 281 Rc As-1 Unit 0 310 [id number] Rc As-1 Unit 310 [id number] Rc Pheresis 2 As3 Unit 0 [id number] Rc Pheresis As-3 Unit 0 281 [id number] Output: Urine 20 150 Other: Voiding Method External Catheter Weight 72.575 kg 75.9 kg GENERAL: Elderly appearing ,alert and oriented x3, not in any acute distress. HEENT: Normocephalic, atraumatic ,pupils are round and equally reacting to light. EOMI. No scleral icterus. No conjunctival pallor. No thyromegaly. CARDIOVASCULAR: S1 and S2 present. Systolic murmurs, rubs, or gallops. PULMONARY: Unlabored, equal air entry ,clear to auscultation, no wheezing or crackles. ABDOMEN: Soft, nontender, nondistended, normoactive bowel sounds. No palpable organomegaly. EXTREMITIES: Minimal pedal edema. Warm, nontender. Positive DP pulses. NEUROLOGICAL: Gross neurological examination did not reveal any focal deficits. SKIN: Warm and dry, no rashes. Results CBC & Chem 7: 09/13/23 14:25 09/13/23 03:35 Labs: Abnormal Lab Results - Last 24 Hours (Table) 09/12/23 09/12/23 09/12/23 Range/Units 20:23 20:23 20:35 RBC 1.31 L (4.30-5.90) m/uL Hgb 3.3 L* D (13.0-17.5) gm/dL Hct 11.6 L* (39.0-53.0) % MCHC 28.4 L (31.0-37.0) g/dL RDW 18.4 H (11.5-15.5) % Neutrophils # 7.8 H (1.3-7.7) k/uL APTT 16.9 L (22.0-30.0) sec Sodium 134 L (137-145) mmol/L Chloride (98-107) mmol/L Carbon Dioxide 9 L* (22-30) mmol/L BUN 21 H (9-20) mg/dL Creatinine 2.11 H (0.66-1.25) mg/dL Glucose 169 H (74-99) mg/dL Plasma Lactic Acid Noah (0.7-2.0) mmol/L Calcium (8.4-10.2) mg/dL Troponin I (0.000-0.034) ng/mL Total Protein 5.6 L (6.3-8.2) g/dL Crossmatch 09/12/23 09/12/23 09/12/23 Range/Units 20:35 20:35 20:55 RBC (4.30-5.90) m/uL Hgb (13.0-17.5) gm/dL Hct (39.0-53.0) % MCHC (31.0-37.0) g/dL RDW (11.5-15.5) % Neutrophils # (1.3-7.7) k/uL APTT (22.0-30.0) sec Sodium (137-145) mmol/L Chloride (98-107) mmol/L Carbon Dioxide (22-30) mmol/L BUN (9-20) mg/dL Creatinine (0.66-1.25) mg/dL Glucose (74-99) mg/dL Plasma Lactic Acid Noah 10.5 H* (0.7-2.0) mmol/L Calcium (8.4-10.2) mg/dL Troponin I 0.099 H* (0.000-0.034) ng/mL Total Protein (6.3-8.2) g/dL Crossmatch See Detail 09/13/23 09/13/23 09/13/23 Range/Units 00:03 00:03 03:35 RBC (4.30-5.90) m/uL Hgb (13.0-17.5) gm/dL Hct (39.0-53.0) % MCHC (31.0-37.0) g/dL RDW (11.5-15.5) % Neutrophils # (1.3-7.7) k/uL APTT (22.0-30.0) sec Sodium (137-145) mmol/L Chloride (98-107) mmol/L Carbon Dioxide (22-30) mmol/L BUN (9-20) mg/dL Creatinine (0.66-1.25) mg/dL Glucose (74-99) mg/dL Plasma Lactic Acid Noah 3.4 H* (0.7-2.0) mmol/L Calcium (8.4-10.2) mg/dL Troponin I 0.912 H* 1.980 H* (0.000-0.034) ng/mL Total Protein (6.3-8.2) g/dL Crossmatch 09/13/23 Range/Units 03:35 RBC (4.30-5.90) m/uL Hgb (13.0-17.5) gm/dL Hct (39.0-53.0) % MCHC (31.0-37.0) g/dL RDW (11.5-15.5) % Neutrophils # (1.3-7.7) k/uL APTT (22.0-30.0) sec Sodium 134 L (137-145) mmol/L Chloride 108 H (98-107) mmol/L Carbon Dioxide 13 L (22-30) mmol/L BUN 26 H (9-20) mg/dL Creatinine 2.21 H (0.66-1.25) mg/dL Glucose (74-99) mg/dL Plasma Lactic Acid Noah (0.7-2.0) mmol/L Calcium 8.2 L (8.4-10.2) mg/dL Troponin I (0.000-0.034) ng/mL Total Protein (6.3-8.2) g/dL Crossmatch Thrombosis Risk Factor Assmnt - Choose All That Apply Any of the Below Risk Factors Present?: Yes Each Factor Represents 1 point: Swollen legs (current), Varicose veins Each Risk Factor Represents 2 Points: Age 61-74 years Other congenital or acquired thrombophilia - If yes, enter type in comment: No Thrombosis Risk Factor Assessment Total Risk Factor Score: 4 Thrombosis Risk Factor Assessment Level: Moderate Risk Assessment and Plan Assessment: Symptomatic severe anemia ,suspect acute blood loss anemia secondary to anticoagulation. Hemoglobin 3.3 on admission status post 4 unit packed RBCs. Elevated troponins, suspect type II PR secondary to the above Acute renal failure secondary to #1 Lactic acidosis, resolved PAD, recent acute limb ischemia, right SFA occlusion status post TPA catheter placement 08/05, discharged on Eliquis on 08/07/2023. Hypertension Prior nicotine dependence, reports he quit smoking in July 2023 Tinnitus Plan: Continue on current medication regimen ,monitoring and symptomatic treatment. Anticoagulation on hold, fourth unit of packed RBCs transfusing currently, close monitoring of CBC. PPI twice daily for GI prophylaxis. IV fluid hydration. Potassium replacement as per protocol. Echo pending. Cardiology, GI and vascular consults in place with recommendations noted and appreciated. Patient is scheduled for EGD and colonoscopy tomorrow. The impression and plan of care has been dictated as directed. : I performed a history and examination of this patient, discussed the same with the dictator. I agree with the dictator's note ,documented as a scribe. Any additional findings or plans will be noted.
[2023-09-13 20:25] LABS: Glucose,Whole Blood 76 mg/dL (70-110)
[2023-09-13 20:43] LABS: Glucose,Whole Blood 100 mg/dL (70-110)
[2023-09-13 23:12] LABS: Anisocytosis Slight; HCT 26.8 % (39.0-53.0); HGB 8.9 gm/dL (13.0-17.5); Hypochromasia Moderate; MCH 28.3 pg (25.0-35.0); MCV 85.6 fL (80.0-100.0); Platelet Count 299 k/uL (150-450); Poikilocytosis Marked; RBC 3.14 m/uL (4.30-5.90); RDW 16.4 % (11.5-15.5); WBC 12.6 k/uL (3.8-10.6)
[2023-09-13 23:44] LABS: Glucose,Whole Blood 86 mg/dL (70-110)
[2023-09-14 04:57] LABS: Anisocytosis Slight; Basophils % (A) 0 %; Eosinophils # (A) 0.1 k/uL (0-0.7); Eosinophils % (A) 1 %; HGB 7.6 gm/dL (13.0-17.5); Hypochromasia Moderate; Lymphocytes # (A) 1.4 k/uL (1.0-4.8); Lymphocytes % (A) 14 %; MCHC 33.1 g/dL (31.0-37.0); MCV 84.6 fL (80.0-100.0); Mean Platelet Volume 8.5; Monocytes # (A) 0.5 k/uL (0-1.0); Monocytes % (A) 5 %; Neutrophils # (A) 8.3 k/uL (1.3-7.7); Neutrophils % (A) 80 %; Platelet Count 287 k/uL (150-450); Poikilocytosis Marked; RBC 2.72 m/uL (4.30-5.90); RDW 16.5 % (11.5-15.5); WBC 10.4 k/uL (3.8-10.6)
[2023-09-14 05:07] LABS: African American GFR (CKD) 37 (>60 ml/min/1.73 sqM); Anion Gap 10 mmol/L; Blood Urea Nitrogen 27 mg/dL (9-20); Carbon Dioxide 16 mmol/L (22-30); Chloride 108 mmol/L (98-107); Glucose 73 mg/dL (74-99); Non-African American GFR(CKD) 32 (>60 ml/min/1.73 sqM); Potassium 4.2 mmol/L (3.5-5.1); Sodium 134 mmol/L (137-145)
[2023-09-14 05:22] LABS: Glucose,Whole Blood 81 mg/dL (70-110)
--- NOTE | 2023-09-14 07:37 | P.PN ---
Subjective Progress Note Date: 09/14/23 PROGRESS NOTE The patient is a 67-year-old male with a prior history of smoking who presented end of July with 6 severe right lower extremity ischemic symptoms and was found to have right lower extremity occlusion with SFA lesion, underwent tPA treatment. During that admission he had episodes of hypertension. He was discharged home on Eliquis and presents with symptoms of progressive dyspnea, fatigue, very severe and very limiting. He was scheduled to undergo an outpatient MPI today but because of his symptoms came into the emergency room and was noted to have a hemoglobin of 3.3. He noted the change in the color of his stool. Patient has been having some peripheral edema but his lower ext remities discomfort has improved. He denies any clear chest discomfort, no PND or orthopnea. He feels dizzy and weak but has no arrhythmia. He has no prior documented history of malignant arrhythmia. In the emergency room his troponin was mildly elevated. He has received transfusion and is feeling slightly better. He has stopped his statin because he felt myalgia from it. He has a remote history of alcohol intake but stopped many years ago. He has no history of ischemic heart disease or heart failure. He has a history of diabetes. He was hypertensive during last admission but was not discharged home on antihypertensive treatment. September 13: The patient feels well this morning. He denies any chest discomfort, dizziness or palpitations. He is feeling stronger. He is in sinus mechanism. He denies any palpitations. He has no nausea or vomiting. He has not noted any change in the color of his stool. There is no gross bleeding at this point. He had an echocardiogram that showed a severely impaired left ventricular systolic function with apical hypokinesis. His EKG showed T wave inversion in the anterior and inferior leads. He has been seen by the GI service and is sche duled to undergo endoscopy Medications: IV fluid, Protonix PHYSICAL EXAMINATION: Blood pressure 129/70 heart rate 70 LUNGS: Clear to auscultation HEART: Regular rate and rhythm, S1, S2. No S3. Systolic ejection murmur ABDOMEN: Soft, nontender, no organomegaly EXTREMETIES: Trace edema LAB: Hemoglobin 7.6, BUN 27, creatinine 2.23 IMPRESSION: 1. Severe anemia with GI bleeding, source unclear 2. Severe cardiomyopathy, unknown duration. Evidence of segmental wall motion abnormality suggestive of CAD 3. History of PAD status post thrombolysis and balloon angioplasty recently 4. Acute renal injury 5. Troponin elevation with probable type II myocardial infarction secondary to the anemia 6. Prior history of smoking PLAN: 1. Add beta-pillo 2. Restart statin 3. GI workup as scheduled 4. Hold on aspirin until cleared by GI 5. The patient will require cardiac workup once bleeding stabilized and renal functions stable Objective - Vital Signs Vital signs: Vital Signs Temp 98.7 F 09/14/23 04:00 Pulse 79 09/14/23 07:00 Resp 17 09/14/23 07:00 BP 129/71 09/14/23 07:00 Pulse Ox 96 09/14/23 07:00 FiO2 3 09/13/23 04:00 Intake & Output 09/13/23 09/14/23 09/14/23 18:59 06:59 18:59 Intake Total 1181 4900 75 Output Total 875 300 Balance 306 4600 75 Weight 73.6 kg Intake: IV 900 900 75 Sodium Chloride 0.9% 1, 900 900 75 000 ml @ 75 mls/hr IV . [id number] [facility] Rx#:[id number] Oral 4000 Blood Product 281 Rc Pheresis As-3 Unit 281 [id number] Output: Urine 875 300 Other: Voiding Method Urinal Urinal # Voids 1 1 # Bowel Movements 3 1 - Labs CBC & Chem 7: 09/14/23 04:26 09/14/23 04:26 Labs: Abnormal Lab Results - Last 24 Hours (Table) 09/12/23 09/13/23 09/13/23 Range/Units 20:55 14:25 22:59 WBC 12.6 H (3.8-10.6) k/uL RBC 2.98 L 3.14 L (4.30-5.90) m/uL Hgb 8.3 L D 8.9 L (13.0-17.5) gm/dL Hct 25.4 L 26.8 L (39.0-53.0) % RDW 16.4 H 16.4 H (11.5-15.5) % Neutrophils # (1.3-7.7) k/uL Sodium (137-145) mmol/L Chloride (98-107) mmol/L Carbon Dioxide (22-30) mmol/L BUN (9-20) mg/dL Creatinine (0.66-1.25) mg/dL Glucose (74-99) mg/dL Calcium (8.4-10.2) mg/dL Crossmatch See Detail 09/14/23 09/14/23 Range/Units 04:26 04:26 WBC (3.8-10.6) k/uL RBC 2.72 L (4.30-5.90) m/uL Hgb 7.6 L (13.0-17.5) gm/dL Hct 23.0 L (39.0-53.0) % RDW 16.5 H (11.5-15.5) % Neutrophils # 8.3 H (1.3-7.7) k/uL Sodium 134 L (137-145) mmol/L Chloride 108 H (98-107) mmol/L Carbon Dioxide 16 L (22-30) mmol/L BUN 27 H (9-20) mg/dL Creatinine 2.13 H (0.66-1.25) mg/dL Glucose 73 L (74-99) mg/dL Calcium 8.0 L (8.4-10.2) mg/dL Crossmatch
--- NOTE | 2023-09-14 10:07 | P.PN ---
Subjective Progress Note Date: 09/14/23 Principal diagnosis: Anemia. I am seeing this patient in new consultation today 09/13/2023 in the intensive care unit after he was found to be severely anemic on admission, with a hemoglobin of 3.3, requiring multiple PRBC transfusions. Patient is a 67-year-old white male with past medical history significant for hypertension and peripheral arterial disease. His primary care provider is Dr. Llanes, patient admits that he does not follow-up like he should. He is supposed to be taking antihypertensive medications, but is not compliant. He recently had a hospital admission 08/02/2023 for an occlusion of the right SFA. He underwent catheter introduced thrombolysis and then percutaneous transluminal balloon angioplasty with drug-coated balloon 6 x 120 of the right superficial femoral artery. He was discharged on Eliquis. Patient states that over the last week he has become progressively more weak. This is generalized weakness. Nonfocal. He states that yesterday, that he got up to take a shower, and was so weak that he had to crawl out of the shower to get to the phone and call 911. He was short of breath at this time. On arrival to the emergency room, he was noted to have a hemoglobin of 3.3 g/dL. He does endorse black stools while at home. Denies any diarrhea. Denies any nausea, vomiting, or hematemesis. Denies any abdominal pain. Denies any previous peptic ulcer disease. He is anticoagulated on Eliquis, and does occasional use ibuprofen. He has not had a previous colonoscopy. For this reason, we were consulted and the patient was admitted to the intensive care unit. He is currently lying in bed, on 6 L/min nasal cannula, in no acute distress. Chest x-ray does not show any acute cardiopulmonary process. He is talkative. He has generalized pallor. Blood pressure is normotensive despite severe anemia. He is receiving his first unit of PRBCs. CBC on arrival includes a WBC count of 9.9, hemoglobin 3.3, hematocrit 11.6, platelets 414. PT 11, INR 1, APTT 16.9. BMP on arrival includes a sodium of 134, potassium 4.7, chloride 103, serum bicarb 9, BUN 21, creatinine 2.11, glucose 169. Normal saline is infusing at 75 mL/h. Lactic acid level was elevated at 10.5 and is down to 3.4. LFTs not elevated. Troponin levels are elevated and consistent with type II HI. Patient denies any chest pain. EKG on arrival shows normal sinus rhythm with nonspecific ST depression. Vital signs are stable. Progress note dated September 14, 2023. 67-year-old male who was seen in consultation yesterday, for weakness, and profound anemia. He had a hemoglobin that was 3.3. He has received 4 units of packed red blood cells. His hemoglobin this morning was 7.6. He is on room air. He is getting saline at 75 cc an hour. The patient is seen today in room 256. He received his prep, and is undergoing an EGD and colonoscopy today. Cl inically, the patient had an uneventful night. White count is 10.4, hemoglobin 7.6, hematocrit 23.0, platelet count 287,000. Sodium 134, potassium 4.2, chlorides 108, CO2 16, BUN 27, creatinine 2.13. Glucose is 73. Calcium is 8. Objective - Vital Signs Vital signs: Vital Signs Temp 98 F 09/14/23 08:00 Pulse 70 09/14/23 08:00 Resp 19 09/14/23 08:00 BP 125/73 09/14/23 08:00 Pulse Ox 96 09/14/23 08:00 FiO2 3 09/13/23 04:00 Intake & Output 09/13/23 09/14/23 09/14/23 18:59 06:59 18:59 Intake Total 1181 4900 225 Output Total 875 300 Balance 306 4600 225 Weight 73.6 kg Intake: IV 900 900 225 Sodium Chloride 0.9% 1, 900 900 225 000 ml @ 75 mls/hr IV . [id number] [facility] Rx#:[id number] Oral 4000 Blood Product 281 Rc Pheresis As-3 Unit 281 [id number] Output: Urine 875 300 Other: Voiding Method Urinal Urinal Urinal # Voids 1 1 # Bowel Movements 3 1 - Exam No acute distress, oriented 3. The patient is currently on room air. HEENT examination is grossly unremarkable. Mucous membranes are moist. No oral lesions. Neck supple. Full range of motion. No adenopathy thyromegaly or neck vein distention. Cardiovascular examination reveals regular rhythm rate. S1-S2 normal. No S3 or S4. No discernible murmur noted. Heart rate is 70 bpm. Lungs reveal clear breath sounds. Breath sounds are equal bilaterally. No adventitious lung sounds including wheezes rhonchi or crackles. Room air saturation is 96%. Abdomen is soft, with bowel sounds. No masses or tenderness. Extremities are intact. No cyanosis clubbing or edema. Skin is without rash or lesion. Neurologic examination is brief but nonfocal. - Labs CBC & Chem 7: 09/14/23 04:26 09/14/23 04:26 Labs: Abnormal Lab Results - Last 24 Hours (Table) 09/13/23 09/13/23 09/14/23 Range/Units 14:25 22:59 04:26 WBC 12.6 H (3.8-10.6) k/uL RBC 2.98 L 3.14 L 2.72 L (4.30-5.90) m/uL Hgb 8.3 L D 8.9 L 7.6 L (13.0-17.5) gm/dL Hct 25.4 L 26.8 L 23.0 L (39.0-53.0) % RDW 16.4 H 16.4 H 16.5 H (11.5-15.5) % Neutrophils # 8.3 H (1.3-7.7) k/uL Sodium (137-145) mmol/L Chloride (98-107) mmol/L Carbon Dioxide (22-30) mmol/L BUN (9-20) mg/dL Creatinine (0.66-1.25) mg/dL Glucose (74-99) mg/dL Calcium (8.4-10.2) mg/dL 09/14/23 Range/Units 04:26 WBC (3.8-10.6) k/uL RBC (4.30-5.90) m/uL Hgb (13.0-17.5) gm/dL Hct (39.0-53.0) % RDW (11.5-15.5) % Neutrophils # (1.3-7.7) k/uL Sodium 134 L (137-145) mmol/L Chloride 108 H (98-107) mmol/L Carbon Dioxide 16 L (22-30) mmol/L BUN 27 H (9-20) mg/dL Creatinine 2.13 H (0.66-1.25) mg/dL Glucose 73 L (74-99) mg/dL Calcium 8.0 L (8.4-10.2) mg/dL Assessment and Plan Assessment: Severe anemia and suspected GI bleed, hemoglobin was 3.3 g/dL on arrival. Elevated troponins, consistent with supply/demand mismatch and type II HI. High anion gap metabolic acidosis, secondary to lactic acidosis. Acute kidney injury, secondary to hypovolemia and severe anemia. History of peripheral arterial disease and right femoral SFA occlusion status post catheter introduced thrombolysis and subsequently percutaneous transluminal balloon angioplasty with drug-coated balloon 6 x 120 of the right superficial femoral artery. He was discharged on Eliquis on 08/07/2023. Bilateral lower extremity edema. History of hypertension. Former tobacco dependence. Plan: Plan dated September 14, 2023. The patient continues in the intensive care unit, room 256. This morning's hemoglobin after 4 units of blood is 7.6. The patient is on room air. The patient is getting saline at 75 cc an hour. The patient has received his prep, and is scheduled to have an EGD, and colonoscopy later today. Labs, x-rays, and medications are all reviewed. Prognosis is guarded. We will continue to follow the patient, and make recommendations along the way. Time with Patient: Less than 30
[2023-09-14 11:51] LABS: Glucose,Whole Blood 81 mg/dL (70-110)
[2023-09-14] MEDS: IV FLUID CONTINUATION 400 ML IV ONE (12:29)
[2023-09-14] MEDS ORDERED: PROPOFOL 10 MG/ML 20 ML VIAL IV ONE (12:29)
[2023-09-14] MEDS ORDERED: LIDOCAINE 1% INJ 10MG/ML (20 ML MDV) ONE (12:29)
--- NOTE | 2023-09-14 13:02 | P.PCN ---
Date of Procedure: 09/14/23 Procedure(s) Performed: Brief history: Patient is a pleasant 67-year-old white male admitted hospital with severe symptomatic anemia with a hemoglobin of 3.3 g/dL.he received 4 units of the abdomen is a transition. He has been on eliquis for the last 6 weeks of peripheral vascular disease which has been on hold for the last 2 days. Has been combative intermittent dark colored stools. Procedure performed: Esophagogastroduodenoscopy with biopsy and cautery Colonoscopy with biopsy Preoperative diagnosis: Severe symptomatic anemia with a hemoglobin of 3.3 g/dL Anesthesia: MAC Procedure: After informed consent was obtained from the patient was brought into the endoscopy unit and IV sedation was administered by anesthesia under continuous monitoring. Initially upper endoscopy was done. The Olympus GF 160 video endoscope was inserted inserted into the mouth and esophagus intubated without any difficulty and was gradually advanced into the stomach and duodenum and carefully examined. The bulb and second part of the duodenum appeared normal. there was an isolated nonbleeding angiectasia in the second part of the duodenum that was cauterized using a gold probe. The scope was then withdrawn into the stomach adequately insufflated with air and upon careful examination the antrum had multiple superficial erosions but no active bleeding and biopsies were done from this area. Mucosa of the body, cardia and fundus appeared normal. The scope was then withdrawn into the esophagus. The GE junction was located at 40 cm to the incisors. It appeared regular with no erythema erosions or ulcerations. Rest of the esophagus appeared normal. Patient tolerated the procedure well. At this time the patient continued to remain sedation. Initial digital rectal examination was normal. Olympus CF 160 video colonoscope was then inserted into the rectum and gradually advanced to the cecum without any difficulty. Careful examination was performed as the scope was gradually being withdrawn. The prep was excellent. The cecum, appeared normal. In the ascending colon there was a 2 cm linear superficial ulceration identified with no active bleeding. Biopsies were done from this area. Rest of the ascending colon, transverse colon, descending colon, appeared normal. The sigmoid: There was a 5 mm polyp that was removed by cold biopsy. Scattered sigmoid diverticulosis seen. Rest of the sigmoid colon and rectum appeared normal. Retroflexion was performed in the rectum and grade 2 internal hemorrhoids were noted. Patient tolerated the procedure well. Impression: 1. Upper endoscopy revealed multiple scattered erosions and antral with no active bleeding and an isolated nonbleeding angiectasia in the second part of the duodenum status post cautery using a gold probe 2. Colonoscopy revealed: a) 2 cm linear superficial ascending colon ulcer with no active bleeding b) 5 mm sigmoid colon polyp status post cold biopsy c) scattered sigmoid diverticulosis d) weight 2 internal hemorrhoids Recommendations: Findings of this examination were discussed with the patient as well as his family. He was advised to continue with Protonix 40 mg twice daily and avoid NSAIDs. Follow with the biopsy results. Advance to regular diet. Resume in 2-3 days.
[2023-09-14] MEDS: ATORVASTATIN 40 MG TAB PO SCH (13:47)
[2023-09-14] MEDS: METOPROLOL TARTRATE 25 MG TAB PO SCH (15:06)
--- NOTE | 2023-09-14 15:39 | P.PN ---
Subjective Progress Note Date: 09/14/23 Patient seen and examined today as a follow-up. He underwent EGD and colonoscopy with multiple findings. Upper endoscopy scattered erosions with no active bleeding isolated nonbleeding angiectasia and colonoscopy revealed ascending colon ulcer with no active bleeding colon polyp scattered sigmoid diverticulosis and internal hemorrhoids. Patient's hemoglobin was stable this morning at 7.6 status post 4 units of blood. Denies any pain in his lower extremities. No abdominal pain nausea or vomiting. Objective - Vital Signs Vital signs: Vital Signs Temp 98 F 09/14/23 13:30 Pulse 70 09/14/23 15:00 Resp 17 09/14/23 15:00 BP 140/81 09/14/23 15:00 Pulse Ox 97 09/14/23 15:00 FiO2 3 09/13/23 04:00 Intake & Output 09/13/23 09/14/23 09/14/23 18:59 06:59 18:59 Intake Total 1181 4900 875 Output Total 875 300 460 Balance 306 4600 415 Weight 73.6 kg Intake: IV 900 900 875 Sodium Chloride 0.9% 1, 900 900 675 000 ml @ 75 mls/hr IV . [id number] [facility] Rx#:[id number] Oral 4000 Blood Product 281 Rc Pheresis As-3 Unit 281 [id number] Output: Urine 875 300 460 Other: Voiding Method Urinal Urinal Urinal # Voids 1 1 # Bowel Movements 3 1 - Exam General appearance: The patient is alert, oriented, appears in no acute distress. HET: Head is normocephalic and atraumatic. Neck: Supple. Abdomen: Soft, nondistended. Extremities: Normal skin color and turgor. Bilateral femoral and DP pulses present. Bilateral lower extremities warm to the touch. No edema. Neurological: No focal deficits. Alert and oriented x 3. - Labs CBC & Chem 7: 09/14/23 04:26 09/14/23 04:26 Labs: Abnormal Lab Results - Last 24 Hours (Table) 09/13/23 09/14/23 09/14/23 Range/Units 22:59 04:26 04:26 WBC 12.6 H (3.8-10.6) k/uL RBC 3.14 L 2.72 L (4.30-5.90) m/uL Hgb 8.9 L 7.6 L (13.0-17.5) gm/dL Hct 26.8 L 23.0 L (39.0-53.0) % RDW 16.4 H 16.5 H (11.5-15.5) % Neutrophils # 8.3 H (1.3-7.7) k/uL Sodium 134 L (137-145) mmol/L Chloride 108 H (98-107) mmol/L Carbon Dioxide 16 L (22-30) mmol/L BUN 27 H (9-20) mg/dL Creatinine 2.13 H (0.66-1.25) mg/dL Glucose 73 L (74-99) mg/dL Calcium 8.0 L (8.4-10.2) mg/dL Assessment and Plan Assessment: 1. Severe symptomatic anemia 2. Previous right SFA occlusion status post thrombolysis and angioplasty (1) Symptomatic anemia Current Visit: Yes Status: Acute Code(s): D64.9 - ANEMIA, UNSPECIFIED SNOMED Code(s): 815527714 (2) Abnormal EKG Current Visit: Yes Status: Acute Code(s): R94.31 - ABNORMAL ELECTROCARDIOGRAM [ECG] [EKG] SNOMED Code(s): 490176412 (3) Elevated troponin Current Visit: Yes Status: Acute Code(s): R79.89 - OTHER SPECIFIED ABNORMAL FINDINGS OF BLOOD CHEMISTRY SNOMED Code(s): 553000149 Plan: 1. Continue symptomatic and supportive care 2. Patient is status post blood transfusion 3. Anticoagulation may be discontinued indefinitely from a vascular surgical standpoint 4. Daily CBC, transfuse for hemoglobin less than 7 5. Protonix 40 mg twice daily 6. Replace potassium per protocol 7. Patient status post EGD and colonoscopy 8. Continue with recommendations from cardiology 9. No indication for any vascular surgical intervention Thank you for this consultation, we will sign off at this time. The impression and plan of care has been dictated as directed. Dr. Barrera I performed a history and examination of this patient, discussed the same with the dictator. I agree with the dictator's note ,documented as a scribe. Any additional findings or plans will be noted.
--- NOTE | 2023-09-14 16:13 | P.PN ---
Subjective Progress Note Date: 09/14/23 H&P Date: 09/13/23 Chief Complaint: Weakness, shortness of breath This is a pleasant 67-year-old gentleman recently discharged on 08/07/2023 on Eliquis, statin and aspirin related to acute limb ischemia/occlusion of the right SFA status post TPA catheter placement 08/05 in a patient with medical history significant for PAD, hypertension, former extensive nicotine dependence, 1 to 2 packs daily x 50 years-reports he recently quit in July 2023, marijuana use, alcohol use-none since 2018 and multiple other medical issues. Denies prior history of peptic ulcer disease or GI bleed and has never had a EGD/colonoscopy. Reports over the last week , generalized weakness progressed ,accompanied by worsening shortness of breath. Reports he was unable to stand up in the shower yesterday, crawled to the landline phone and called 911. On admission hemoglobin discovered to be 3.3. Patient admits to dark tarry stools, timeframe unsure. Vague historian. Denies nausea vomiting or diarrhea. Denies abdominal pain. Denies hematemesis. Patient did follow-up with PCP August 08, at which time, patient's hemoglobin was 12.3, heart rate 90 with O2 sat on ro om air 100%. Sodium 134, potassium 5.1, chloride 108 anion gap 13, bicarb 13, BUN 26, creatinine 2.21, glucose 169, lactic acid 10.5-resolved with IV fluid resuscitation ,currently 1.6.EKG reporting nonspecific ST and T wave abnormalities, troponin 0.099, positive stool for occult blood, viral studies negative, afebrile, normal WBC. Receiving fourth unit of packed RBCs currently with no active bleeding at this time. Denies chest pain, palpitations. Maintaining O2 sats in the high 90s on room air. Chest x-ray reporting no acute cardiopulmonary disease/process. Repeat EKG and echo pending. Vital signs stable. 09/14/2023 feels better this morning, denies chest pain, palpitations, shortness of breath or abdominal pain. Reports he was able to ambulate to the bathroom instead of using bedside commode. Denies lightheadedness, dizziness or focal deficits. Hemoglobin stabilized, currently 7.6. Denies further bleeding. Bicarb 16, BUN 27, creatinine 2.13. echo reported technically difficult study, impaired LV systolic function, EF 25 to 30%, mild ventricle and apical hypokinesia. N.p.o., scheduled for EGD and colonoscopy today. Objective - Vital Signs Vital signs: Vital Signs Temp 98 F 09/14/23 08:00 Pulse 70 09/14/23 08:00 Resp 19 09/14/23 08:00 BP 125/73 09/14/23 08:00 Pulse Ox 96 09/14/23 08:00 FiO2 3 09/13/23 04:00 Intake & Output 09/13/23 09/14/23 09/14/23 18:59 06:59 18:59 Intake Total 1181 4900 150 Output Total 875 300 Balance 306 4600 150 Weight 73.6 kg Intake: IV 900 900 150 Sodium Chloride 0.9% 1, 900 900 150 000 ml @ 75 mls/hr IV . [id number] [facility] Rx#:[id number] Oral 4000 Blood Product 281 Rc Pheresis As-3 Unit 281 [id number] Output: Urine 875 300 Other: Voiding Method Urinal Urinal Urinal # Voids 1 1 # Bowel Movements 3 1 - Exam GENERAL:alert and oriented x3, sitting up in bed, not in any acute distress. HEENT: Normocephalic, atraumatic ,pupils are round and equally reacting to light. No conjunctival pallor. CARDIOVASCULAR: S1 and S2 present. Systolic murmur, rubs, or gallops. PULMONARY: Unlabored, equal air entry ,clear to auscultation, no wheezing or crackles. ABDOMEN: Soft, nontender, nondistended, normoactive bowel sounds. No palpable organomegaly. EXTREMITIES: Minimal pedal edema. Warm, nontender. Positive DP pulses. NEUROLOGICAL: Gross neurological examination did not reveal any focal deficits. SKIN: Warm and dry, no rashes. - Labs CBC & Chem 7: 09/14/23 04:26 09/14/23 04:26 Labs: Abnormal Lab Results - Last 24 Hours (Table) 09/13/23 09/13/23 09/14/23 Range/Units 14:25 22:59 04:26 WBC 12.6 H (3.8-10.6) k/uL RBC 2.98 L 3.14 L 2.72 L (4.30-5.90) m/uL Hgb 8.3 L D 8.9 L 7.6 L (13.0-17.5) gm/dL Hct 25.4 L 26.8 L 23.0 L (39.0-53.0) % RDW 16.4 H 16.4 H 16.5 H (11.5-15.5) % Neutrophils # 8.3 H (1.3-7.7) k/uL Sodium (137-145) mmol/L Chloride (98-107) mmol/L Carbon Dioxide (22-30) mmol/L BUN (9-20) mg/dL Creatinine (0.66-1.25) mg/dL Glucose (74-99) mg/dL Calcium (8.4-10.2) mg/dL 09/14/23 Range/Units 04:26 WBC (3.8-10.6) k/uL RBC (4.30-5.90) m/uL Hgb (13.0-17.5) gm/dL Hct (39.0-53.0) % RDW (11.5-15.5) % Neutrophils # (1.3-7.7) k/uL Sodium 134 L (137-145) mmol/L Chloride 108 H (98-107) mmol/L Carbon Dioxide 16 L (22-30) mmol/L BUN 27 H (9-20) mg/dL Creatinine 2.13 H (0.66-1.25) mg/dL Glucose 73 L (74-99) mg/dL Calcium 8.0 L (8.4-10.2) mg/dL Assessment and Plan Assessment: Symptomatic severe anemia ,suspect acute blood loss anemia secondary to anticoagulation. Hemoglobin 3.3 on admission status post 4 unit packed RBCs. Elevated troponins, suspect type II AL secondary to the above Severe cardiomyopathy, EF 25 to 30%, further cardiac workup pending Acute renal failure secondary to #1 Lactic acidosis, resolved PAD, recent acute limb ischemia, right SFA occlusion status post TPA catheter placement 08/05, discharged on Eliquis on 08/07/2023. Hypertension Prior nicotine dependence, reports he quit smoking in July 2023 Tinnitus Plan: Continue on current medication regimen ,monitoring and symptomatic treatment. NPO, EGD and colonoscopy pending . Continue PPI twice daily. Anticoagulation remains on hold. IV fluid hydration. Beta-pillo and statin resumed as per cardiology with further cardiac workup to follow when stable. The impression and plan of care has been dictated as directed. : I performed a history and examination of this patient, discussed the same with the dictator. I agree with the dictator's note ,documented as a scribe. Any additional findings or plans will be noted.
[2023-09-14 20:40] LABS: Glucose,Whole Blood 122 mg/dL (70-110)
[2023-09-15 06:07] LABS: Glucose,Whole Blood 104 mg/dL (70-110)
[2023-09-15 11:18] LABS: Glucose,Whole Blood 111 mg/dL (70-110)
--- NOTE | 2023-09-15 11:52 | P.PN ---
Subjective Progress Note Date: 09/15/23 Principal diagnosis: Anemia This is a pleasant 67-year-old male with a history of back surgery, chronic paresthesia, numbness in his feet the morning, history of nicotine abuse and recent admission for occlusion of the right SFA who underwent thrombolysis as well as angioplasty in the beginning of August with good revascularization. Patient at that time was started on Eliquis 5 mg twice daily, atorvastatin 40 mg at bedtime and aspirin 81 mg daily. Patient had been taking his medications as prescribed. He denies any NSAID use. States he also was recently put on Chanti x for smoking cessation. Patient presented to the emergency department with complaints of shortness of breath, weakness and fatigue. Patient states over the last couple weeks he has had little energy, he is becoming short of breath, and decreased appetite due to weakness. Patient was noted to be severely anemic on admission with a hemoglobin of 3.3. He was also noted to have EKG changes and elevated troponins. Cardiology is following and recommending GI workup prior to any further cardiac investigation. Patient is scheduled for echocardiogram. He is status post 4 units of PRBC transfusion. He states he had been noticing dark black tarry stools. He has no history of GI bleed. No history of peptic ulcer disease and has never undergone endoscopy or colonoscopy. He denies abdominal pain, nausea or vomiting. He denies any bleeding from previous access sites. Lower extremities warm to the touch, no pain. 09/15/2023 Patient seen and examined today as a follow-up. He was transferred out of the ICU yesterday. No further bleeding noted. He did undergo EGD and colonoscopy yesterday. Upper endoscopy revealed multiple scattered erosions and antral with no active bleeding and an isolated nonbleeding angiectasia second part of duodenum status post cautery using gold probe ablation. Colonoscopy with findings of superficial ascending colon ulcer with no active bleeding sigmoid polyp status post biopsy, scattered sigmoid diverticulosis and grade 2 internal hemorrhoids. Today's labs are pending. He is tolerating a regular diet. Objective - Vital Signs Vital signs: Vital Signs Temp 97.9 F 09/14/23 22:06 Pulse 79 09/15/23 03:45 Resp 18 09/15/23 03:45 BP 127/63 09/15/23 03:45 Pulse Ox 95 09/15/23 03:45 FiO2 3 09/13/23 04:00 Intake & Output 09/14/23 09/15/23 09/15/23 18:59 06:59 18:59 Intake Total 1600 650 Output Total 640 275 Balance 960 375 Weight 75.8 kg Intake: IV 1100 150 Sodium Chloride 0.9% 1, 900 150 000 ml @ 75 mls/hr IV . [id number] [facility] Rx#:[id number] Oral 500 500 Output: Urine 640 275 Other: Voiding Method Urinal Urinal # Voids 1 1 # Bowel Movements 1 - Exam General appearance: The patient is alert, oriented, appears in no acute distress . HET: Head is normocephalic and atraumatic. Neck: Supple. Abdomen: Soft, nontender, nondistended. Extremities: Normal skin color and turgor. Bilateral femoral and DP pulses present. Bilateral lower extremities warm to the touch. No edema. Neurological: No focal deficits. Alert and oriented x 3. - Labs CBC & Chem 7: 09/14/23 04:26 09/14/23 04:26 Labs: Abnormal Lab Results - Last 24 Hours (Table) 09/14/23 Range/Units 20:39 POC Glucose (mg/dL) 122 H (70-110) mg/dL Assessment and Plan (1) Symptomatic anemia Narrative/Plan: 67-year-old male with recent history of acute ischemia of right lower extremity status post revascularization of the right superficial femoral artery and was started on Eliquis 5 mg twice daily. He has been on that a little over a month and approximately 2 weeks ago started feeling weak, and has been noticing black tarry stools. No previous history of GI bleed, no history of endoscopy or colonoscopy in the past. Likely dealing with GI source of acute blood loss anemia. He was found to have a hemoglobin of 3.3, status post 4 units of blood. Possible etiologies include peptic ulcer disease, AVM, gastritis, esophagitis, or other possible etiologies. Recommend proceeding with EGD and colonoscopy, possible small bowel capsule endoscopy if EGD and colonoscopy negative. Patient agreeable. Will plan for tomorrow. Continue with workup from cardiology. And is status post upper and lower endoscopy with findings as stated in HPI. No further workup indicated. Continue with Protonix 40 mg twice daily. Await hem oglobin and if stable patient is cleared from gastroenterology for discharge and will need to follow-up in 1 to 2 weeks for biopsy results. According to vascular surgery patient no longer needs to remain on Eliquis. Hold anticoagulation and aspirin for 1 more day. Current Visit: Yes Status: Acute Code(s): D64.9 - ANEMIA, UNSPECIFIED SNOMED Code(s): 948201434 (2) Abnormal EKG Current Visit: Yes Status: Acute Code(s): R94.31 - ABNORMAL ELECTROCARDIOGRAM [ECG] [EKG] SNOMED Code(s): 578728942 (3) Elevated troponin Current Visit: Yes Status: Acute Code(s): R79.89 - OTHER SPECIFIED ABNORMAL FINDINGS OF BLOOD CHEMISTRY SNOMED Code(s): 564148407 Plan: 1. Continue symptomatic and supportive care 2. Patient is status post blood transfusion 3. Anticoagulation may be discontinued indefinitely from a vascular surgical standpoint 4. Daily CBC, transfuse for hemoglobin less than 7 5. Protonix 40 mg twice daily 6. Replace potassium per protocol 7. Patient status post EGD and colonoscopy 8. If hemoglobin is stable patient is cleared from gastroenterology will need to follow-up in 1 to 2 weeks for biopsy results. Avoid NSAIDs Thank you for this consultation. Dr. Fadi Mejia I agree with the dictator's note, documented as a scribe by Ashley Herrera.
--- NOTE | 2023-09-15 12:08 | P.PN ---
Subjective Progress Note Date: 09/15/23 I am seeing this patient in new consultation today 09/13/2023 in the intensive care unit after he was found to be severely anemic on admission, with a hemoglobin of 3.3, requiring multiple PRBC transfusions. Patient is a 67-year-old white male with past medical history significant for hypertension and peripheral arterial disease. His primary care provider is Dr. Llanes, patient admits that he does not follow-up like he should. He is supposed to be taking antihypertensive medications, but is not compliant. He recently had a hospital admission 08/02/2023 for an occlusion of the right SFA. He underwent catheter introduced thrombolysis and then percutaneous transluminal balloon angioplasty with drug-coated balloon 6 x 120 of the right superficial femoral artery. He was discharged on Eliquis. Patient states that over the last week he has become progressively more weak. This is generalized weakness. Nonfocal. He states that yesterday, that he got up to take a shower, and was so weak that he had to crawl out of the shower to get to the phone and call 911. He was short of breath at this time. On arrival to the emergency room, he was noted to have a hemoglobin of 3.3 g/dL. He does endorse black stools while at home. Denies any diarrhea. Denies any nausea, vomiting, or hematemesis. Denies any abdominal pain. Denies any previous peptic ulcer disease. He is anticoagulated on Eliquis, and does occasional use ibuprofen. He has not had a previous colonoscopy. For this reason, we were consulted and the patient was admitted to the intensive care unit. He is currently lying in bed, on 6 L/min nasal cannula, in no acute distress. Chest x-ray does not show any acute cardiopul monary process. He is talkative. He has generalized pallor. Blood pressure is normotensive despite severe anemia. He is receiving his first unit of PRBCs. CBC on arrival includes a WBC count of 9.9, hemoglobin 3.3, hematocrit 11.6, platelets 414. PT 11, INR 1, APTT 16.9. BMP on arrival includes a sodium of 134, potassium 4.7, chloride 103, serum bicarb 9, BUN 21, creatinine 2.11, glucose 169. Normal saline is infusing at 75 mL/h. Lactic acid level was elevated at 10.5 and is down to 3.4. LFTs not elevated. Troponin levels are elevated and consistent with type II [place]. Patient denies any chest pain. EKG on arrival shows normal sinus rhythm with nonspecific ST depression. Vital signs are stable. Progress note dated September 14, 2023. 67-year-old male who was seen in consultation yesterday, for weakness, and profound anemia. He had a hemoglobin that was 3.3. He has received 4 units of packed red blood cells. His hemoglobin this morning was 7.6. He is on room air. He is getting saline at 75 cc an hour. The patient is seen today in room 256. He received his prep, and is undergoing an EGD and colonoscopy today. Clinically, the patient had an uneventful night. White count is 10.4, hemoglobin 7.6, hematocrit 23.0, platelet count 287,000. Sodium 134, potassium 4.2, chlorides 108, CO2 16, BUN 27, creatinine 2.13. Glucose is 73. Calcium is 8. The patient is seen today September 15, 2023 in follow-up on the selective care unit. He is currently resting fairly comfortably in bed. He is awake and alert in no acute distress. He is maintaining good O2 saturations in the upper 90s on room air. Has been afebrile. Hemodynamically stable. Status post 4 units of packed red blood cells this admission. Current hemoglobin is 7.6. Today's labs are pending. Glucose 111. He did undergo EGD yesterday that revealed multiple scattered erosions and antral with no active bleeding and an isolated nonbleeding angiectasia in the second part of the duodenum status post cautery. Colonoscopy revealed 2 cm linear superficial ascending colon ulcer with no active bleeding. 5 mm sigmoid colon polyp status post cold biopsy. Scattered sigmoid diverticulosis. Objective - Vital Signs Vital signs: Vital Signs Temp 98.2 F 09/15/23 08:06 Pulse 74 09/15/23 11:57 Resp 16 09/15/23 11:57 BP 136/63 09/15/23 11:57 Pulse Ox 98 09/15/23 11:57 FiO2 3 09/13/23 04:00 Intake & Output 09/14/23 09/15/23 09/15/23 18:59 06:59 18:59 Intake Total 1600 650 658 Output Total 640 275 300 Balance 960 375 358 Weight 75.8 kg Intake: IV 1100 150 Sodium Chloride 0.9% 1, 900 150 000 ml @ 75 mls/hr IV . [id number] [facility] Rx#:[id number] Oral 500 500 658 Output: Urine 640 275 300 Other: Voiding Method Urinal Urinal Urinal # Voids 1 1 # Bowel Movements 1 - Exam GENERAL EXAM: Alert, pleasant 67-year-old male, on room air, comfortable in no apparent distress. HEAD: Normocephalic and atraumatic EYES: Normal reaction of pupils, equal size. NOSE: Clear with pink turbinates. THROAT: No erythema or exudates. Dry mucous membranes. NECK: No masses, no JVD. CHEST: No chest wall deformity. LUNGS: Equal air entry with no crackles, wheeze, rhonchi or dullness. No conversational dyspnea. CVS: S1 and S2 normal with no audible murmur, regular rhythm. No extra heart sounds ABDOMEN: No hepatosplenomegaly, active bowel sounds, no guarding or rigidity. SPINE: No scoliosis or deformity SKIN: No rashes CENTRAL NERVOUS SYSTEM: No focal deficits, tone is normal in all 4 extremities. EXTREMITIES: There is bilateral lower extremity 2-3+ pitting edema. No clubbing, or cyanosis. Peripheral pulses palpable. - Labs CBC & Chem 7: 09/14/23 04:26 09/14/23 04:26 Labs: Abnormal Lab Results - Last 24 Hours (Table) 09/14/23 09/15/23 Range/Units 20:39 11:16 POC Glucose (mg/dL) 122 H 111 H (70-110) mg/dL Assessment and Plan Assessment: Severe anemia and suspected GI bleed, hemoglobin was 3.3 g/dL on arrival, patient received 4 units of PRBCs. Current hemoglobin 7.6. He did undergo EGD September 14, 2023 that revealed multiple scattered erosions and antral with no active bleeding and an isolated nonbleeding angiectasia in the second part of the duodenum status post cautery. Colonoscopy revealed 2 cm linear superficial ascending colon ulcer with no active bleeding. 5 mm sigmoid colon polyp status post cold biopsy. Scattered sigmoid diverticulosis. Elevated troponins, consistent with supply/demand mismatch and type II [place] High anion gap metabolic acidosis, secondary to lactic acidosis, improving Acute kidney injury, secondary to hypovolemia and severe anemia History of peripheral arterial disease and right femoral SFA occlusion status post catheter introduced thrombolysis and subsequently percutaneous transluminal balloon angioplasty with drug-coated balloon 6 x 120 of the right superficial femoral artery. He was discharged on Eliquis on 08/07/2023 Bilateral lower extremity edema History of hypertension Former tobacco dependence, quitting reportedly 6 weeks ago. Plan: The patient was seen and evaluated Today's labs are pending Most recent hemoglobin 7.6 Status post 4 units of packed red blood cells EGD and colonoscopy results reviewed Stable and on room air Cleared for discharge once cleared by GI service I have personally seen and examined the patient, performed the documentation and the assessment and plan as written. Number of minutes spent on the visit: 10.
[2023-09-15 12:43] LABS: Anisocytosis Slight; HCT 24.9 % (39.0-53.0); HGB 7.9 gm/dL (13.0-17.5); Hypochromasia Marked; MCH 28.2 pg (25.0-35.0); MCHC 31.9 g/dL (31.0-37.0); MCV 88.6 fL (80.0-100.0); Mean Platelet Volume 8.4; Platelet Count 262 k/uL (150-450); Poikilocytosis Marked; RBC 2.82 m/uL (4.30-5.90); RDW 16.7 % (11.5-15.5); WBC 9.6 k/uL (3.8-10.6)
[2023-09-15 12:47] LABS: African American GFR (CKD) 43 (>60 ml/min/1.73 sqM); Anion Gap 6 mmol/L; Blood Urea Nitrogen 21 mg/dL (9-20); Calcium 8.2 mg/dL (8.4-10.2); Carbon Dioxide 19 mmol/L (22-30); Chloride 110 mmol/L (98-107); Glucose 94 mg/dL (74-99); Non-African American GFR(CKD) 37 (>60 ml/min/1.73 sqM); Potassium 4.9 mmol/L (3.5-5.1); Sodium 135 mmol/L (137-145)
--- NOTE | 2023-09-15 14:21 | P.PN ---
Subjective Progress Note Date: 09/15/23 daniele who presented end of July with 6 severe right lower extremity ischemic symptoms and was found to have right lower extremity occlusion with SFA lesion, underwent tPA treatment. During that admission he had episodes of hypertension. He was discharged home on Eliquis and presents with symptoms of progressive dyspnea, fatigue, very severe and very limiting. He was scheduled to undergo an outpatient MPI today but because of his symptoms came into the emergency room and was noted to have a hemoglobin of 3.3. He noted the change in the color of his stool. Patient has been having some peripheral edema but his lower extremities discomfort has improved. He denies any clear chest discomfort, no PND or orthopnea. He feels dizzy and weak but has no arrhythmia. He has no prior documented history of malignant arrhythmia. In the emergency room his troponin was mildly elevated. He has received transfusion and is feeling slightly better. He has stopped his statin because he felt myalgia from it. He has a remote history of alcohol intake but stopped many years ago. He has no history of ischemic heart disease or heart failure. He has a history of diabetes. He was hypertensive during last admission but was not discharged home on antihypertensive treatment. September 13: The patient feels well this morning. He denies any chest discomfort, dizziness or palpitations. He is feeling stronger. He is in sinus mechanism. He denies any palpitations. He has no nausea or vomiting. He has not noted any change in the color of his stool. There is no gross bleeding at this point. He had an echocardiogram that showed a severely impaired left ventricular systolic function with apical hypokinesis. His EKG showed T wave inversion in the anterior and inferior leads. He has been seen by the GI service and is scheduled to undergo endoscopy 09/14 Patient is seen today on the cardiac stepdown unit. Patient underwent EGD and colonoscopy yesterday. Upper endoscopy revealed multiple scattered erosions and antral with no active bleeding and isolated nonbleeding angiectasia second part of the duodenum status post cautery. Colonoscopy reveals superficial ascending colon ulcer with no active bleeding. Sigmoid polyp s/p biopsy and scattered sigmoid diverticulosis, grade 2 hemorrhoids. Patient states that he is feeling much better. He had a bowel movement with no blood no tarriness to it. He states it was normal color. Hemoglobin today at 7.9, BUN 21 creatinine 1.84. Blood pressure 136/63, heart rate 74, pulse ox 90% on room air. Yesterday, beta-pillo was added to his medication regime. Medications: IV fluid, Protonix PHYSICAL EXAMINATION: 68-year-old male in no acute distress LUNGS: Clear to auscultation HEART: Regular rate and rhythm, S1, S2. No S3. Systolic ejection murmur ABDOMEN: Soft, nontender, no organomegaly EXTREMETIES: Trace edema IMPRESSION: 1. Severe acute blood loss anemia secondary to acute GI bleed 2. Severe cardiomyopathy, unknown duration. Evidence of segmental wall motion abnormality suggestive of CAD 3. History of PAD status post thrombolysis and balloon angioplasty recently 4. Acute renal injury, improving 5. Troponin elevation with probable type II myocardial infarction secondary to the anemia 6. Prior history of smoking PLAN: 1. Continue beta-pillo 2. Continue statin 3. GI workup as above 4. Resume aspirin tomorrow as has been cleared by GI 5. The patient will require cardiac workup once bleeding stabilized and renal functions stable 6. Start patient on Farxiga 10 mg daily 7. Anticipate discharge home tomorrow. Nurse practitioner note has been reviewed, I agree with documented findings and plan of care. Patient was seen and examined. Objective - Vital Signs Vital signs: Vital Signs Temp 98.2 F 09/15/23 08:06 Pulse 74 09/15/23 11:57 Resp 16 09/15/23 11:57 BP 136/63 09/15/23 11:57 Pulse Ox 98 09/15/23 11:57 FiO2 3 09/13/23 04:00 Intake & Output 09/14/23 09/15/23 09/15/23 18:59 06:59 18:59 Intake Total 1600 650 658 Output Total 640 275 300 Balance 960 375 358 Weight 75.8 kg Intake: IV 1100 150 Sodium Chloride 0.9% 1, 900 150 000 ml @ 75 mls/hr IV . [id number] [facility] Rx#:[id number] Oral 500 500 658 Output: Urine 640 275 300 Other: Voiding Method Urinal Urinal Urinal # Voids 1 1 # Bowel Movements 1 - Labs CBC & Chem 7: 09/15/23 11:35 09/15/23 11:35 Labs: Abnormal Lab Results - Last 24 Hours (Table) 09/14/23 09/15/23 Range/Units 20:39 11:16 POC Glucose (mg/dL) 122 H 111 H (70-110) mg/dL
[2023-09-15] MEDS: DAPAGLIFLOZIN PROPANEDIOL 10 MG TABLET PO SCH (15:24)
--- NOTE | 2023-09-15 16:15 | P.PN ---
Subjective Progress Note Date: 09/15/23 H&P Date: 09/13/23 Chief Complaint: Weakness, shortness of breath This is a pleasant 67-year-old gentleman recently discharged on 08/07/2023 on Eliquis, statin and aspirin related to acute limb ischemia/occlusion of the right SFA status post TPA catheter placement 08/05 in a patient with medical history significant for PAD, hypertension, former extensive nicotine dependence, 1 to 2 packs daily x 50 years-reports he recently quit in July 2023, marijuana use, alcohol use-none since 2018 and multiple other medical issues. Denies prior history of peptic ulcer disease or GI bleed and has never had a EGD/colonoscopy. Reports over the last week , generalized weakness progressed ,accompanied by worsening shortness of breath. Reports he was unable to stand up in the shower yesterday, crawled to the landline phone and called 911. On admission hemoglobin discovered to be 3.3. Patient admits to dark tarry stools, timeframe unsure. Vague historian. Denies nausea vomiting or diarrhea. Denies abdominal pain. Denies hematemesis. Patient did follow-up with PCP August 08, at which time, patient's hemoglobin was 12.3, heart rate 90 with O2 sat on ro om air 100%. Sodium 134, potassium 5.1, chloride 108 anion gap 13, bicarb 13, BUN 26, creatinine 2.21, glucose 169, lactic acid 10.5-resolved with IV fluid resuscitation ,currently 1.6.EKG reporting nonspecific ST and T wave abnormalities, troponin 0.099, positive stool for occult blood, viral studies negative, afebrile, normal WBC. Receiving fourth unit of packed RBCs currently with no active bleeding at this time. Denies chest pain, palpitations. Maintaining O2 sats in the high 90s on room air. Chest x-ray reporting no acute cardiopulmonary disease/process. Repeat EKG and echo pending. Vital signs stable. 09/14/2023 feels better this morning, denies chest pain, palpitations, shortness of breath or abdominal pain. Reports he was able to ambulate to the bathroom instead of using bedside commode. Denies lightheadedness, dizziness or focal deficits. Hemoglobin stabilized, currently 7.6. Denies further bleeding. Bicarb 16, BUN 27, creatinine 2.13. echo reported technically difficult study, impaired LV systolic function, EF 25 to 30%, mild ventricle and apical hypokinesia. N.p.o., scheduled for EGD and colonoscopy today. 09/15/2023 transferred out of the ICU yesterday .no further bleeding reported .tolerating regular diet .denies nausea vomiting or abdominal pain. Completed EGD and colonoscopy yesterday reporting multiple scattered erosions, antral with no active bleeding, isolated nonbleeding angiectasia second part of duodenum status post cautery using gold probe ablation,superficial ascending colon ulcer with no active bleeding sigmoid polyp status post biopsy, scattered sigmoid diverticulosis and grade 2 internal hemorrhoids. Denies chest pain, palpitation s or shortness of breath. Labs pending. Objective - Vital Signs Vital signs: Vital Signs Temp 98.2 F 09/15/23 08:06 Pulse 74 09/15/23 11:57 Resp 16 09/15/23 11:57 BP 136/63 09/15/23 11:57 Pulse Ox 98 09/15/23 11:57 FiO2 3 09/13/23 04:00 Intake & Output 09/14/23 09/15/23 09/15/23 18:59 06:59 18:59 Intake Total 1600 650 768 Output Total 640 275 300 Balance 960 375 468 Weight 75.8 kg Intake: IV 1100 150 Sodium Chloride 0.9% 1, 900 150 000 ml @ 75 mls/hr IV . [id number] [facility] Rx#:[id number] Oral 500 500 768 Output: Urine 640 275 300 Other: Voiding Method Urinal Urinal Urinal # Voids 1 1 # Bowel Movements 1 - Exam GENERAL:alert and oriented x3, sitting up in bed, no acute distress. HEENT: Normocephalic, atraumatic ,pupils are round and equally reacting to light. No conjunctival pallor. CARDIOVASCULAR: S1 and S2 present. Systolic murmur, rubs, or gallops. PULMONARY: Unlabored, equal air entry ,clear to auscultation, no wheezing or crackles. ABDOMEN: Soft, nontender, nondistended, positive bowel sounds EXTREMITIES: Minimal pedal edema. Warm, nontender. Positive DP pulses. NEUROLOGICAL: Gross neurological examination did not reveal any focal deficits. SKIN: Warm and dry, no rashes. - Labs CBC & Chem 7: 09/15/23 11:35 09/15/23 11:35 Labs: Abnormal Lab Results - Last 24 Hours (Table) 09/14/23 09/15/23 09/15/23 Range/Units 20:39 11:16 11:35 RBC 2.82 L (4.30-5.90) m/uL Hgb 7.9 L (13.0-17.5) gm/dL Hct 24.9 L (39.0-53.0) % RDW 16.7 H (11.5-15.5) % Sodium (137-145) mmol/L Chloride (98-107) mmol/L Carbon Dioxide (22-30) mmol/L BUN (9-20) mg/dL Creatinine (0.66-1.25) mg/dL POC Glucose (mg/dL) 122 H 111 H (70-110) mg/dL Calcium (8.4-10.2) mg/dL 09/15/23 Range/Units 11:35 RBC (4.30-5.90) m/uL Hgb (13.0-17.5) gm/dL Hct (39.0-53.0) % RDW (11.5-15.5) % Sodium 135 L (137-145) mmol/L Chloride 110 H (98-107) mmol/L Carbon Dioxide 19 L (22-30) mmol/L BUN 21 H (9-20) mg/dL Creatinine 1.84 H (0.66-1.25) mg/dL POC Glucose (mg/dL) (70-110) mg/dL Calcium 8.2 L (8.4-10.2) mg/dL Assessment and Plan Assessment: Symptomatic severe anemia ,suspect acute blood loss anemia secondary to anticoagulation. Hemoglobin 3.3 on admission status post 4 unit packed RBCs. Status post EGD and colonoscopy,reporting multiple scattered erosions, antral with no active bleeding, isolated nonbleeding angiectasia second part of du odenum status post cautery using gold probe ablation,superficial ascending colon ulcer with no active bleeding sigmoid polyp status post biopsy, scattered sigmoid diverticulosis and grade 2 internal hemorrhoids. Elevated troponins, suspect type II [place] secondary to the above Severe cardiomyopathy, EF 25 to 30%, further cardiac workup pending Acute renal failure secondary to #1 Lactic acidosis, resolved PAD, recent acute limb ischemia, right SFA occlusion status post TPA catheter placement 08/05, discharged on Eliquis on 08/07/2023. Hypertension Prior nicotine dependence, reports he quit smoking in July 2023 Tinnitus Plan: Continue on current medication regimen ,monitoring and symptomatic treatment. Maintain PPI, statin and beta-pillo. Labs pending. Per vascular surgery patient no longer needs to remain on Eliquis .per GI continue holding aspirin and anticoagulation for 1 more day . Further recommendations for discharge regarding anticoagulation and further workup for cardiomyopathy as per cardiology . Discharge planning in progress pending labs, clearance from GI ,cardiology and pulmonary. The impression and plan of care has been dictated as directed. : I performed a history and examination of this patient, discussed the same with the dictator. I agree with the dictator's note ,documented as a scribe. Any additional findings or plans will be noted.
[2023-09-15 16:17] LABS: Glucose,Whole Blood 157 mg/dL (70-110)
[2023-09-15 16:58] VITALS: TEMP 98.1
[2023-09-15 19:49] LABS: Glucose,Whole Blood 104 mg/dL (70-110)
[2023-09-16 06:20] LABS: Glucose,Whole Blood 95 mg/dL (70-110)
[2023-09-16] MEDS: SODIUM FERRIC GLUCONAT-SUCROSE 125 MG in SODIUM CHLORIDE 0.9% 100 ML IVPB ONE (08:41)
[2023-09-16 09:11] VITALS: BP 143/78; PULSE 74; RESP 16
--- NOTE | 2023-09-16 10:30 | P.PN ---
Subjective Progress Note Date: 09/16/23 Principal diagnosis: Anemia This is a pleasant 67-year-old male with a history of back surgery, chronic paresthesia, numbness in his feet the morning, history of nicotine abuse and recent admission for occlusion of the right SFA who underwent thrombolysis as well as angioplasty in the beginning of August with good revascularization. Patient at that time was started on Eliquis 5 mg twice daily, atorvastatin 40 mg at bedtime and aspirin 81 mg daily. Patient had been taking his medications as prescribed. He denies any NSAID use. States he also was recently put on Chanti x for smoking cessation. Patient presented to the emergency department with complaints of shortness of breath, weakness and fatigue. Patient states over the last couple weeks he has had little energy, he is becoming short of breath, and decreased appetite due to weakness. Patient was noted to be severely anemic on admission with a hemoglobin of 3.3. He was also noted to have EKG changes and elevated troponins. Cardiology is following and recommending GI workup prior to any further cardiac investigation. Patient is scheduled for echocardiogram. He is status post 4 units of PRBC transfusion. He states he had been noticing dark black tarry stools. He has no history of GI bleed. No history of peptic ulcer disease and has never undergone endoscopy or colonoscopy. He denies abdominal pain, nausea or vomiting. He denies any bleeding from previous access sites. Lower extremities warm to the touch, no pain. 09/15/2023 Patient seen and examined today as a follow-up. He was transferred out of the ICU yesterday. No further bleeding noted. He did undergo EGD and colonoscopy yesterday. Upper endoscopy revealed multiple scattered erosions and antral with no active bleeding and an isolated nonbleeding angiectasia second part of duodenum status post cautery using gold probe ablation. Colonoscopy with findings of superficial ascending colon ulcer with no active bleeding sigmoid polyp status post biopsy, scattered sigmoid diverticulosis and grade 2 internal hemorrhoids. Today's labs are pending. He is tolerating a regular diet. 1523 Patient seen and examined as a follow-up today. He denies any abdominal pain, nausea or vomiting. He has had a bowel movement since his endoscopies and states that he has not noticed any black stool or blood in his stool. Today's hemoglobin is currently pending. Denies any dizziness, shortness of breath or chest pain. He has been tolerating regular diet. Cardiology following and planning outpatient workup. Objective - Vital Signs Vital signs: Vital Signs Temp 98.1 F 09/15/23 16:44 Pulse 69 09/16/23 04:45 Resp 18 09/16/23 04:45 BP 144/72 09/16/23 04:45 Pulse Ox 98 09/16/23 04:45 FiO2 3 09/13/23 04:00 Intake & Output 09/15/23 09/16/23 09/16/23 18:59 06:59 18:59 Intake Total 1428 540 Output Total 650 Balance 778 540 Intake: Oral 1428 540 Output: Urine 650 Other: Voiding Method Urinal Urinal - Exam General appearance: The patient is alert, oriented, appears in no acute distress. HET: Head is normocephalic and atraumatic. Neck: Supple. Abdomen: Soft, nontender, nondistended. Extremities: Normal skin color and turgor. Bilateral femoral and DP pulses present. Bilateral lower extremities warm to the touch. No edema. Neurological: No focal deficits. Alert and oriented x 3. - Labs CBC & Chem 7: 09/15/23 11:35 09/15/23 11:35 Labs: Abnormal Lab Results - Last 24 Hours (Table) 09/15/23 09/15/23 09/15/23 Range/Units 11:16 11:35 11:35 RBC 2.82 L (4.30-5.90) m/uL Hgb 7.9 L (13.0-17.5) gm/dL Hct 24.9 L (39.0-53.0) % RDW 16.7 H (11.5-15.5) % Sodium 135 L (137-145) mmol/L Chloride 110 H (98-107) mmol/L Carbon Dioxide 19 L (22-30) mmol/L BUN 21 H (9-20) mg/dL Creatinine 1.84 H (0.66-1.25) mg/dL POC Glucose (mg/dL) 111 H (70-110) mg/dL Calcium 8.2 L (8.4-10.2) mg/dL 09/15/23 Range/Units 16:14 RBC (4.30-5.90) m/uL Hgb (13.0-17.5) gm/dL Hct (39.0-53.0) % RDW (11.5-15.5) % Sodium (137-145) mmol/L Chloride (98-107) mmol/L Carbon Dioxide (22-30) mmol/L BUN (9-20) mg/dL Creatinine (0.66-1.25) mg/dL POC Glucose (mg/dL) 157 H (70-110) mg/dL Calcium (8.4-10.2) mg/dL Assessment and Plan (1) Symptomatic anemia Narrative/Plan: 67-year-old male with recent history of acute ischemia of right lower extremity status post revascularization of the right superficial femoral artery and was started on Eliquis 5 mg twice daily. He has been on that a little over a month and approximately 2 weeks ago started feeling weak, and has been noticing black tarry stools. No previous history of GI bleed, no history of endoscopy or colonoscopy in the past. Likely dealing with GI source of acute blood loss anemia. He was found to have a hemoglobin of 3.3, status post 4 units of blood. Possible etiologies include peptic ulcer disease, AVM, gastritis, esophagitis, or other possible etiologies. Recommend proceeding with EGD and colonoscopy, possible small bowel capsule endoscopy if EGD and colonoscopy negative. Patient agreeable. Will plan for tomorrow. Continue with workup from cardiology. And is status post upper and lower endoscopy with findings as stated in HPI. No further workup indicated. Continue with Protonix 40 mg twice daily. Await hemoglobin and if stable patient is cleared from gastroenterology for discharge and will need to follow-up in 1 to 2 weeks for biopsy results. According to vascular surgery patient no longer needs to remain on Eliquis. Hold anticoagulation and aspirin for 1 more day. Current Visit: Yes Status: Acute Code(s): D64.9 - ANEMIA, UNSPECIFIED SNOMED Code(s): 905462866 (2) Abnormal EKG Current Visit: Yes Status: Acute Code(s): R94.31 - ABNORMAL ELECTROCARDIOGRAM [ECG] [EKG] SNOMED Code(s): 668738958 (3) Elevated troponin Current Visit: Yes Status: Acute Code(s): R79.89 - OTHER SPECIFIED ABNORMAL FINDINGS OF BLOOD CHEMISTRY SNOMED Code(s): 581783440 Plan: 1. Continue symptomatic and supportive care 2. Patient is status post blood transfusion 3. Anticoagulation may be discontinued indefinitely from a vascular surgical standpoint 4. Parenteral iron ordered x 1 dose 5. Protonix 40 mg twice daily 6. Patient status post EGD and colonoscopy 7. Patient to follow-up with gastroenterology in 1 to 2 weeks for biopsy results Thank you for allowing us to participate in the care of the patient, the GI service will sign off, gastroenterology will not be available at the hospital this weekend and through next week. If further evaluation by gastroenterology is required the patient will need transfer as per the primary team's discretion. Dr. Fadi Mejia I agree with the dictator's note, documented as a scribe by Ashley Herrera.
[2023-09-16 11:19] LABS: Anisocytosis Slight; Hypochromasia Marked; MCH 27.6 pg (25.0-35.0); MCHC 30.8 g/dL (31.0-37.0); MCV 89.8 fL (80.0-100.0); Mean Platelet Volume 9.3; Platelet Count 273 k/uL (150-450); Poikilocytosis Marked; RBC 2.89 m/uL (4.30-5.90); RDW 16.6 % (11.5-15.5); WBC 7.6 k/uL (3.8-10.6)
[2023-09-16 11:32] LABS: Glucose,Whole Blood 104 mg/dL (70-110)
[2023-09-16 11:33] LABS: African American GFR (CKD) 47 (>60 ml/min/1.73 sqM); Anion Gap 11 mmol/L; Blood Urea Nitrogen 20 mg/dL (9-20); Calcium 8.3 mg/dL (8.4-10.2); Carbon Dioxide 15 mmol/L (22-30); Chloride 111 mmol/L (98-107); Glucose 90 mg/dL (74-99); Non-African American GFR(CKD) 40 (>60 ml/min/1.73 sqM); Potassium 4.5 mmol/L (3.5-5.1); Sodium 137 mmol/L (137-145)
--- NOTE | 2023-09-16 11:40 | P.PN ---
Subjective Progress Note Date: 09/16/23 Principal diagnosis: Anemia. I am seeing this patient in new consultation today 09/13/2023 in the intensive care unit after he was found to be severely anemic on admission, with a hemoglobin of 3.3, requiring multiple PRBC transfusions. Patient is a 67-year-old white male with past medical history significant for hypertension and peripheral arterial disease. His primary care provider is Dr. Llanes, patient admits that he does not follow-up like he should. He is supposed to be taking antihypertensive medications, but is not compliant. He recently had a hospital admission 08/02/2023 for an occlusion of the right SFA. He underwent catheter introduced thrombolysis and then percutaneous transluminal balloon angioplasty with drug-coated balloon 6 x 120 of the right superficial femoral artery. He was discharged on Eliquis. Patient states that over the last week he has become progressively more weak. This is generalized weakness. Nonfocal. He states that yesterday, that he got up to take a shower, and was so weak that he had to crawl out of the shower to get to the phone and call 911. He was short of breath at this time. On arrival to the emergency room, he was noted to have a hemoglobin of 3.3 g/dL. He does endorse black stools while at home. Denies any diarrhea. Denies any nausea, vomiting, or hematemesis. Denies any abdominal pain. Denies any previous peptic ulcer disease. He is anticoagulated on Eliquis, and does occasional use ibuprofen. He has not had a previous colonoscopy. For this reason, we were consulted and the patient was admitted to the intensive care unit. He is currently lying in bed, on 6 L/min nasal cannula, in no acute distress. Chest x-ray does not show any acute cardiopulmonary process. He is talkative. He has generalized pallor. Blood pressure is normotensive despite severe anemia. He is receiving his first unit of PRBCs. CBC on arrival includes a WBC count of 9.9, hemoglobin 3.3, hematocrit 11.6, platelets 414. PT 11, INR 1, APTT 16.9. BMP on arrival includes a sodium of 134, potassium 4.7, chloride 103, serum bicarb 9, BUN 21, creatinine 2.11, glucose 169. Normal saline is infusing at 75 mL/h. Lactic acid level was elevated at 10.5 and is down to 3.4. LFTs not elevated. Troponin levels are elevated and consistent with type II NM. Patient denies any chest pain. EKG on arrival shows normal sinus rhythm with nonspecific ST depression. Vital signs are stable. Progress note dated September 14, 2023. 67-year-old male who was seen in consultation yesterday, for weakness, and profound anemia. He had a hemoglobin that was 3.3. He has received 4 units of packed red blood cells. His hemoglobin this morning was 7.6. He is on room air. He is getting saline at 75 cc an hour. The patient is seen today in room 256. He received his prep, and is undergoing an EGD and colonoscopy today. Cl inically, the patient had an uneventful night. White count is 10.4, hemoglobin 7.6, hematocrit 23.0, platelet count 287,000. Sodium 134, potassium 4.2, chlorides 108, CO2 16, BUN 27, creatinine 2.13. Glucose is 73. Calcium is 8. The patient is seen today September 15, 2023 in follow-up on the selective care unit. He is currently resting fairly comfortably in bed. He is awake and alert in no acute distress. He is maintaining good O2 saturations in the upper 90s on room air. Has been afebrile. Hemodynamically stable. Status post 4 units of packed red blood cells this admission. Current hemoglobin is 7.6. Today's labs are pending. Glucose 111. He did undergo EGD yesterday that revealed multiple scattered erosions and antral with no active bleeding and an isolated nonbleeding angiectasia in the second part of the duodenum status post cautery. Colonoscopy revealed 2 cm linear superficial ascending colon ulcer with no active bleeding. 5 mm sigmoid colon polyp status post cold biopsy. Scattered sigmoid diverticulosis. Progress note dated September 16, 2023. The patient is seen today in room 385. The patient is currently on room air. He is not receiving any IV fluids. Today's hemoglobin is 7.9. The patient is hoping to be discharged today. Blood has been drawn this morning, but has not yet been resulted. He denies any shortness of breath, cough, wheezing, chest tightness, or pain in the chest, and is denying any bleeding. Laboratory data today includes a white count of 7.6, hemoglobin 8, hematocrit 26, and a platelet count of 273,000. Sodium 137, potassium 4.5, chlorides 111, CO2 15, BUN 20, creatinine 1.73. Glucose is 90. Calcium is 8.3. Objective - Vital Signs Vital signs: Vital Signs Temp 98.1 F 09/15/23 16:44 Pulse 74 09/16/23 08:37 Resp 16 09/16/23 08:37 BP 143/78 09/16/23 08:37 Pulse Ox 97 09/16/23 08:37 FiO2 3 09/13/23 04:00 Intake & Output 09/15/23 09/16/23 09/16/23 18:59 06:59 18:59 Intake Total 1428 540 0 Output Total 650 1000 Balance 778 540 -1000 Intake: Oral 1428 540 0 Output: Urine 650 1000 Other: Voiding Method Urinal Urinal Urinal - Exam No acute distress, oriented 3. The patient is currently on room air. Saturations are 97%. HEENT examination is grossly unremarkable. Mucous membranes are moist. No oral lesions. Neck supple. Full range of motion. No adenopathy thyromegaly or neck vein distention. Cardiovascular examination reveals regular rhythm rate. S1-S2 normal. No S3 or S4. No discernible murmur noted. Heart rate is 74 bpm. Lungs reveal clear breath sounds. Breath sounds are equal bilaterally. No adventitious lung sounds including wheezes rhonchi or crackles. Room air saturation is 97 %. Abdomen is soft, with bowel sounds. No masses or tenderness. Extremities are intact. No cyanosis clubbing or edema. Skin is without rash or lesion. Neurologic examination is brief but nonfocal. - Labs CBC & Chem 7: 09/16/23 10:18 09/16/23 10:18 Labs: Abnormal Lab Results - Last 24 Hours (Table) 09/15/23 09/15/23 09/15/23 Range/Units 11:35 11:35 16:14 RBC 2.82 L (4.30-5.90) m/uL Hgb 7.9 L (13.0-17.5) gm/dL Hct 24.9 L (39.0-53.0) % MCHC (31.0-37.0) g/dL RDW 16.7 H (11.5-15.5) % Sodium 135 L (137-145) mmol/L Chloride 110 H (98-107) mmol/L Carbon Dioxide 19 L (22-30) mmol/L BUN 21 H (9-20) mg/dL Creatinine 1.84 H (0.66-1.25) mg/dL POC Glucose (mg/dL) 157 H (70-110) mg/dL Calcium 8.2 L (8.4-10.2) mg/dL 09/16/23 09/16/23 Range/Units 10:18 10:18 RBC 2.89 L (4.30-5.90) m/uL Hgb 8.0 L (13.0-17.5) gm/dL Hct 26.0 L (39.0-53.0) % MCHC 30.8 L (31.0-37.0) g/dL RDW 16.6 H (11.5-15.5) % Sodium (137-145) mmol/L Chloride 111 H (98-107) mmol/L Carbon Dioxide 15 L (22-30) mmol/L BUN (9-20) mg/dL Creatinine 1.73 H (0.66-1.25) mg/dL POC Glucose (mg/dL) (70-110) mg/dL Calcium 8.3 L (8.4-10.2) mg/dL Assessment and Plan Assessment: Severe anemia and suspected GI bleed, hemoglobin was 3.3 g/dL on arrival. Elevated troponins, consistent with supply/demand mismatch and type II NM. High anion gap metabolic acidosis, secondary to lactic acidosis. Acute kidney injury, secondary to hypovolemia and severe anemia. History of peripheral arterial disease and right femoral SFA occlusion status post catheter introduced thrombolysis and subsequently percutaneous transluminal balloon angioplasty with drug-coated balloon 6 x 120 of the right superficial femoral artery. He was discharged on Eliquis on 08/07/2023. Bilateral lower extremity edema. History of hypertension. Former tobacco dependence. Plan: Plan dated September 14, 2023. The patient continues in the intensive care unit, room 256. This morning's hemoglobin after 4 units of blood is 7.6. The patient is on room air. The patient is getting saline at 75 cc an hour. The patient has received his prep, and is scheduled to have an EGD, and colonoscopy later today. Labs, x-rays, and medications are all reviewed. Prognosis is guarded. We will continue to follow the patient, and make recommendations along the way. Plan dated September 16, 2023. The patient's hemoglobin this morning was 8. It has been stable the last few days. The patient is not having any active bleeding. Labs, x-rays, and medications are reviewed. The patient is currently on room air. He is not receiving any IV fluids. The patient is stable for discharge from the pulmonary standpoint. Additional recommendations and suggestions are forthcoming. Time with Patient: Less than 30
--- NOTE | 2023-09-16 14:12 | P.PN ---
Subjective Progress Note Date: 09/16/23 daniele who presented end of July with 6 severe right lower extremity ischemic symptoms and was found to have right lower extremity occlusion with SFA lesion, underwent tPA treatment. During that admission he had episodes of hypertension. He was discharged home on Eliquis and presents with symptoms of progressive dyspnea, fatigue, very severe and very limiting. He was scheduled to undergo an outpatient MPI today but because of his symptoms came into the emergency room and was noted to have a hemoglobin of 3.3. He noted the change in the color of his stool. Patient has been having some peripheral edema but his lower extremities discomfort has improved. He denies any clear chest discomfort, no PND or orthopnea. He feels dizzy and weak but has no arrhythmia. He has no prior documented history of malignant arrhythmia. In the emergency room his troponin was mildly elevated. He has received transfusion and is feeling slightly better. He has stopped his statin because he felt myalgia from it. He has a remote history of alcohol intake but stopped many years ago. He has no history of ischemic heart disease or heart failure. He has a history of diabetes. He was hypertensive during last admission but was not discharged home on antihypertensive treatment. September 13: The patient feels well this morning. He denies any chest discomfort, dizziness or palpitations. He is feeling stronger. He is in sinus mechanism. He denies any palpitations. He has no nausea or vomiting. He has not noted any change in the color of his stool. There is no gross bleeding at this point. He had an echocardiogram that showed a severely impaired left ventricular systolic function with apical hypokinesis. His EKG showed T wave inversion in the anterior and inferior leads. He has been seen by the GI service and is scheduled to undergo endoscopy 09/14 Patient is seen today on the cardiac stepdown unit. Patient underwent EGD and colonoscopy yesterday. Upper endoscopy revealed multiple scattered erosions and antral with no active bleeding and isolated nonbleeding angiectasia second part of the duodenum status post cautery. Colonoscopy reveals superficial ascending colon ulcer with no active bleeding. Sigmoid polyp s/p biopsy and scattered sigmoid diverticulosis, grade 2 hemorrhoids. Patient states that he is feeling much better. He had a bowel movement with no blood no tarriness to it. He states it was normal color. Hemoglobin today at 7.9, BUN 21 creatinine 1.84. Blood pressure 136/63, heart rate 74, pulse ox 90% on room air. Yesterday, beta-pillo was added to his medication regime. 09/15 Patient states that he is feeling better in general. He feels stronger and. He still feels some tiredness. He has ambulated in his room without any difficulty. No chest pain. Patient remains off anticoagulation. Repeat hemoglobin is 8. BUN 20 creatinine 1.73. Medications: IV fluid, Protonix PHYSICAL EXAMINATION: 68-year-old male in no acute distress LUNGS: Clear to auscultation HEART: Regular rate and rhythm, S1, S2. No S3. Systolic ejection murmur ABDOMEN: Soft, nontender, no organomegaly EXTREMETIES: Trace edema IMPRESSION: 1. Severe acute blood loss anemia secondary to acute GI bleed 2. Severe cardiomyopathy, unknown duration. Evidence of segmental wall motion abnormality suggestive of CAD 3. History of PAD status post thrombolysis and balloon angioplasty recently 4. Acute renal injury, improving 5. Troponin elevation with probable type II myocardial infarction secondary to the anemia 6. Prior history of smoking PLAN: 1. Continue beta-pillo 2. Continue statin 3. GI workup as above 4. The patient will require cardiac workup once bleeding stabilized and renal functions stable 5. Start patient on Farxiga 10 mg daily 6. Patient is cleared by cardiology for discharge and may follow-up in the office with Dr. Hawkins in 2 weeks. Nurse practitioner note has been reviewed, I agree with documented findings and plan of care. Patient was seen and examined. Objective - Vital Signs Vital signs: Vital Signs Temp 98.1 F 09/15/23 16:44 Pulse 74 09/16/23 08:37 Resp 16 09/16/23 08:37 BP 143/78 09/16/23 08:37 Pulse Ox 97 09/16/23 08:37 FiO2 3 09/13/23 04:00 Intake & Output 09/15/23 09/16/23 09/16/23 18:59 06:59 18:59 Intake Total 1428 540 0 Output Total 650 1000 Balance 778 540 -1000 Intake: Oral 1428 540 0 Output: Urine 650 1000 Other: Voiding Method Urinal Urinal Urinal - Labs CBC & Chem 7: 09/16/23 10:18 09/16/23 10:18 Labs: Abnormal Lab Results - Last 24 Hours (Table) 09/15/23 09/15/23 09/15/23 Range/Units 11:16 11:35 11:35 RBC 2.82 L (4.30-5.90) m/uL Hgb 7.9 L (13.0-17.5) gm/dL Hct 24.9 L (39.0-53.0) % RDW 16.7 H (11.5-15.5) % Sodium 135 L (137-145) mmol/L Chloride 110 H (98-107) mmol/L Carbon Dioxide 19 L (22-30) mmol/L BUN 21 H (9-20) mg/dL Creatinine 1.84 H (0.66-1.25) mg/dL POC Glucose (mg/dL) 111 H (70-110) mg/dL Calcium 8.2 L (8.4-10.2) mg/dL 09/15/23 Range/Units 16:14 RBC (4.30-5.90) m/uL Hgb (13.0-17.5) gm/dL Hct (39.0-53.0) % RDW (11.5-15.5) % Sodium (137-145) mmol/L Chloride (98-107) mmol/L Carbon Dioxide (22-30) mmol/L BUN (9-20) mg/dL Creatinine (0.66-1.25) mg/dL POC Glucose (mg/dL) 157 H (70-110) mg/dL Calcium (8.4-10.2) mg/dL
--- NOTE | 2023-09-17 08:35 | P.DS ---
Providers Date of admission: 09/12/23 22:15 Expected date of discharge: 09/16/23 Attending physician: Elie Llanes MD Consults: 09/12/23 22:05 Consult Physician Stat Consulting Provider: Johann Sarkar Consult Reason/Comments: Anemia 3.3 Do you want consulting provider notified?: Yes Consult Physician Urgent Consulting Provider: [facility] Consult Reason/Comments: EKG changes. Elevated trop. No chest pain Do you want consulting provider notified?: Yes Consult Physician Urgent Consulting Provider: Tasha Mejia Consult Reason/Comments: Anemia 3.3. (+) Occult blood Do you want consulting provider notified?: Yes Primary care physician: Elie Llanes MD Hospital Course: Final Diagnoses: Symptomatic severe anemia ,suspect acute blood loss anemia secondary to anticoagulation. Hemoglobin 3.3 on admission status post 4 unit packed RBCs. Status post EGD and colonoscopy,reporting multiple scattered erosions, antral with no active bleeding, isolated nonbleeding angiectasia second part of duodenum status post cautery using gold probe ablation,superficial ascending colon ulcer with no active bleeding sigmoid polyp status post biopsy, scattered sigmoid diverticulosis and grade 2 internal hemorrhoids. 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 Hypertension Prior nicotine dependence, reports he quit smoking in July 2023 Hospital course:This is a pleasant 67-year-old gentleman recently discharged on 08/07/2023 on Eliquis, statin and aspirin related to acute limb ischemia/occlusion of the right SFA status post TPA catheter placement 08/05 in a patient with medical history significant for PAD, hypertension, former extensive nicotine dep endence, 1 to 2 packs daily x 50 years-reports he recently quit in July 2023, marijuana use, alcohol use-none since 2019 and multiple other medical issues. Denies prior history of peptic ulcer disease or GI bleed and has never had a EGD/colonoscopy. Reports over the last week , generalized weakness progressed ,accompanied by worsening shortness of breath. Reports he was unable to stand up in the shower yesterday, crawled to the landline phone and called 911. On admission hemoglobin discovered to be 3.3. Patient admits to dark tarry stools, timeframe unsure. Vague historian. Denies nausea vomiting or diarrhea. Denies abdominal pain. Denies hematemesis. Patient did follow-up with PCP August 08, at which time, patient's hemoglobin was 12.3, heart rate 90 with O2 sat on room air 100%. Sodium 134, potassium 5.1, chloride 108 anion gap 13, bicarb 13, BUN 26, creatinine 2.21, glucose 169, lactic acid 10.5-resolved with IV fluid resuscitation ,currently 1.6.EKG reporting nonspecific ST and T wave abnormalities, troponin 0.099, positive stool for occult blood, viral studies negative, afebrile, normal WBC. Receiving fourth unit of packed RBCs currently with no active bleeding at this time. Denies chest pain, palpitations. Maintaining O2 sats in the high 90s on room air. Chest x-ray reporting no acute cardiopulmonary disease/process. Repeat EKG and echo pending. Vital signs stable. 09/14/2023 feels better this morning, denies chest pain, palpitations, shortness of breath or abdominal pain. Reports he was able to ambulate to the bathroom instead of using bedside commode. Denies lightheadedness, dizziness or focal deficits. Hemoglobin stabilized, currently 7.6. Denies further bleeding. Bicarb 16, BUN 27, creatinine 2.13. echo reported technically difficult study, impaired LV systolic function, EF 25 to 30%, mild ventricle and apical hypokinesia. N.p.o., scheduled for EGD and colonoscopy today. 09/15/2023 transferred out of the ICU yesterday .no further bleeding reported .tolerating regular diet .denies nausea vomiting or abdominal pain. Completed EGD and colonoscopy yesterday reporting multiple scattered erosions, antral with no active bleeding, isolated nonbleeding angiectasia second part of duodenum status post cautery using gold probe ablation,superficial ascending colon ulcer with no active bleeding sigmoid polyp status post biopsy, scattered sigmoid diverticulosis and grade 2 internal hemorrhoids. Denies chest pain, palpitations or shortness of breath. Labs pending. Maintained on PPI, statin and beta-pillo. Labs pending. Per vascular surgery patient no longer needs to remain on Eliquis .per GI continue holding aspirin and anticoagulation for 1 more day . Further recommendations for discharge regarding anticoagulation and further workup for cardiomyopathy as per cardiology . Discharge planning in progress pending labs, clearance from GI ,cardiology and pulmonary. 09/16/2023 significant clinical improvement. Hemoglobin 8, BUN 20, creatinine 1.73. Vital signs stable. Remains off anticoagulation. Denies chest pain, palpitations or shortness of breath. Maintaining O2 sats of 97% on room air. Ambulated, tolerated exertion well. Good diet intake, consumed 100% of breakfast. Denies nausea vomiting or diarrhea. Denies abdominal pain. Denies further bleeding, denies black stools or blood in his stool. Denies lightheadedness, dizziness or shortness of breath .Feeling stronger. Anticoagulation remains on hold .Patient will be discharged home today in a stable condition with guarded prognosis pending final DC recommendations and clearance from GI, pulmonary and cardiology. The impression and plan of care has been dictated as directed. : I performed a history and examination of this patient, discussed the same with the dictator. I agree with the dictator's note ,documented as a scribe. Any additional findings or plans will be noted. Patient Condition at Discharge: Stable Plan - Discharge Summary Discharge Rx Participant: No New Discharge Prescriptions: New Dapagliflozin Propanediol [Farxiga] 10 mg PO DAILY #30 tab Pantoprazole [Protonix] 40 mg PO BID #60 tab Atorvastatin [Lipitor] 40 mg PO DAILY #30 tab Metoprolol Tartrate [Lopressor] 25 mg PO BID #60 tab Continue Cholecalciferol [Vitamin D3 (25 Mcg = 1000 Iu)] 25 mcg PO DAILY Discontinued Apixaban [Eliquis] 5 mg PO BID #60 tab Aspirin 81 mg PO DAILY #30 tab metFORMIN HCL 500 mg PO DAILY No Action Glucosam/Bret-Msm1/C/Chandan/Bosw [Glucosamine-Chondroitin Tablet] 1 tab PO DAILY Discharge Medication List Cholecalciferol [Vitamin D3 (25 Mcg = 1000 Iu)] 25 mcg PO DAILY 09/12/23 [History] Glucosam/Bret-Msm1/C/Chandan/Bosw [Glucosamine-Chondroitin Tablet] 1 tab PO DAILY 09/12/23 [History] Pantoprazole [Protonix] 40 mg PO BID #60 tab 09/15/23 [Rx] Atorvastatin [Lipitor] 40 mg PO DAILY #30 tab 09/16/23 [Rx] Dapagliflozin Propanediol [Farxiga] 10 mg PO DAILY #30 tab 09/16/23 [Rx] Metoprolol Tartrate [Lopressor] 25 mg PO BID #60 tab 09/16/23 [Rx] Follow up Appointment(s)/Referral(s): Donnie Hawkins MD [STAFF PHYSICIAN] - 10/14/23 10:15 am (Please call office to schedule stress test) Elie Llanes MD [Primary Care Provider] - 09/20/23 10:15 am Tasha Mejia MD [STAFF PHYSICIAN] - 1 Week (Unable to reach office staff. Please call to schedule appoitment) Ambulatory/Diagnostic Orders: Complete Blood Count w/diff [LAB.AMB] Time Frame: 3 Days, Location: None Selected Patient Instructions/Handouts: Iron Rich Diet (GEN), Anemia (GEN) Discharge Disposition: HOME SELF-CARE
== END 2023-09-16 12:59 | disposition home or self-care (01) | DRG 813 ==
LOC: EC 19:31 → 2SICU 22:15 → 3SCARD 09-14 21:48
PROVIDERS: ADMIT Family Medicine; ATTEND Family Medicine
PROC: 30233N1 Transfusion of Nonautologous Red Blood Cells into Peripheral Vein, Percutaneous Approach (ICD-10-PCS; 2023-09-12)
PROC: 0DD78ZX Extraction of Stomach, Pylorus, Via Natural or Artificial Opening Endoscopic, Diagnostic (ICD-10-PCS; principal; 2023-09-14 12:05)
PROC: 0D598ZZ Destruction of Duodenum, Via Natural or Artificial Opening Endoscopic (ICD-10-PCS; 2023-09-14 12:05)
PROC: 0DBK8ZX Excision of Ascending Colon, Via Natural or Artificial Opening Endoscopic, Diagnostic (ICD-10-PCS; 2023-09-14 12:05)
PROC: 0DBN8ZZ Excision of Sigmoid Colon, Via Natural or Artificial Opening Endoscopic (ICD-10-PCS; 2023-09-14 12:05)
DX: D68.32 Hemorrhagic disorder due to extrinsic circulating anticoagulants (principal); I21.A1 Myocardial infarction type 2; D62 Acute posthemorrhagic anemia; N17.9 Acute kidney failure, unspecified; I42.9 Cardiomyopathy, unspecified; K63.3 Ulcer of intestine; T46.6X6A Underdosing of antihyperlipidemic and antiarteriosclerotic drugs, initial encounter; T45.515A Adverse effect of anticoagulants, initial encounter; K64.1 Second degree hemorrhoids; E86.1 Hypovolemia; I10 Essential (primary) hypertension; F17.210 Nicotine dependence, cigarettes, uncomplicated; Z91.128 Patient's intentional underdosing of medication regimen for other reason; K31.819 Angiodysplasia of stomach and duodenum without bleeding; K63.5 Polyp of colon; K57.30 Diverticulosis of large intestine without perforation or abscess without bleeding; I27.20 Pulmonary hypertension, unspecified; I08.1 Rheumatic disorders of both mitral and tricuspid valves; X58.XXXA Exposure to other specified factors, initial encounter; Z79.01 Long term (current) use of anticoagulants; Z79.84 Long term (current) use of oral hypoglycemic drugs; Z79.82 Long term (current) use of aspirin; Z71.6 Tobacco abuse counseling
CPT/HCPCS: 36415; 36430; 43239; 43270; 45380; 71046; 80048; 80053; 82272; 83036; 83605; 84484; 85025; 85027; 85610; 85730; 86850; 86900; 86901; 86920; 87636; 88305; 93005; 93306; 96374; 99291

== ENCOUNTER → 2024-08-02 | Outpatient (CLI) | payer MEDICARE, BC ==
[2024-08-02 14:43] LABS: HCT 46.3 % (39.6-50.0); MCH 30.5 pg (27.0-32.0); MCHC 32.4 g/dL (32.0-37.0); MCV 94.3 FL (80.0-97.0); Mean Platelet Volume 10.6 FL (9.5-12.2); NRBC Per 100 WBC 0 X 10*3/uL (0.00-0.01); Platelet Count 308 X 10*3/uL (140-440); RBC 4.91 X 10*6/uL (4.40-5.60); RDW 13.3 % (11.5-14.5); WBC 7.98 X 10*3/uL (4.50-10.00)
[2024-08-02 15:02] LABS: Blood Urea Nitrogen 12.1 mg/dL (9.0-27.0); Carbon Dioxide 26.1 mmol/L (21.6-31.8); Chloride 104 mmol/L (96-109); Potassium 5.2 mmol/L (3.5-5.5); Sodium 141 mmol/L (135-145)
== END | disposition home or self-care (01) ==
LOC: LABPAT 10:04
PROVIDERS: ATTEND Internal Medicine
DX: I73.9 Peripheral vascular disease, unspecified (principal)
CPT/HCPCS: 36415; 80051; 82565; 84520; 85027